=== PATIENT | female | born 1975 | race Caucasian/White ===

== ENCOUNTER 2022-01-31 10:47 | Outpatient (CLI) | payer BC, SELFPAY ==
[2022-01-31 13:45] LABS: TSH With Reflex to FT4* 0.738 uIU/mL (0.270-4.200)
== END 2022-01-31 10:48 | disposition home or self-care (01) ==
LOC: NFLDREF 10:50
PROVIDERS: Visit Provider Registered Nurse
DX: N92.0 Excessive and frequent menstruation with regular cycle (principal); Z01.419 Encounter for gynecological examination (general) (routine) without abnormal findings; E04.1 Nontoxic single thyroid nodule; Z12.31 Encounter for screening mammogram for malignant neoplasm of breast; R92.2 Inconclusive mammogram
CPT/HCPCS: 77063; 77067; 84443

== ENCOUNTER 2022-02-06 09:36 | Outpatient (CLI) | payer BC, SELFPAY ==
--- NOTE | 2022-02-06 09:45 | CRLHL7_ITS ---
For Patients: As a result of the Century Cures Act, medical imaging exams and procedure reports are released immediately into your electronic medical record. You may view this report before your referring provider. If you have questions, please contact your health care provider. INDICATION: Menorrhagia TECHNIQUE: Ultrasound pelvis transabdominal and transvaginal for better assessment or to better visualize the endometrium. Real time sonographic images with Spectral and color Doppler imaging of the ovaries were obtained. COMPARISON: 08/08/2018 FINDINGS: Uterus: 9.3 centimeter x 5.0 centimeter x 4.7 centimeter. Heterogeneous myometrium. 2.1 centimeter x 1.9 centimeter x 1.9 centimeter anterior fundal fibroid. Endometrium: Transvaginal imaging was performed to better evaluate the endometrium. Millimeter in thickness. No sign of endometrial mass or fluid. Right ovary: 2.7 centimeter x 1.5 centimeter x 1.8 centimeter. No ovarian or adnexal masses. Normal arterial and venous blood flow. Left ovary: 3.4 centimeter x 1.9 centimeter x 2.7 centimeter no ovarian or adnexal masses. 1.5 centimeter dominant follicle. Normal arterial and venous blood flow. Cul-de-sac: No significant free fluid. IMPRESSION: 2.1 centimeter anterior fundal fibroid. Heterogeneous myometrium. Normal endometrium and endometrial canal. Dictated by Gabriel Mendoza MD @ 02/07/2022 1:06:57 PM (Electronically Signed)
--- NOTE | 2022-02-06 10:45 | CRLHL7_ITS ---
For Patients: As a result of the Cures Act, medical imaging exams and procedure reports are released immediately into your electronic medical record. You may view this report before your referring provider. If you have questions, please contact your health care provider. CLINICAL HISTORY: Nodule Comparison : Ultrasound 03/29/2021 TECHNIQUE: Tamayo-scale and color Doppler images were acquired of the thyroid gland. FINDINGS: Right thyroid lobe measures 6.4 x 2 by 2.1 centimeters. Left thyroid lobe measures 6 x 1.9 x 2 centimeters. Multiple nodules present. 2.6 x 1.6 x 1.8 centimeter solid nodule TR4. Stable. 1.7 x 1.3 x 1. 6 heterogeneous solid nodule right mid thyroid lobe TR4 stable Heterogeneous solid nodule right mid thyroid lobe measuring 1 x 0.8 0.9 centimeters. TR4 this is not measured on the prior study. Solid 1.9 by 2.4 x 1.5 centimeter nodule left mid thyroid noduleTR4 stable. Solid 1.1 by 0.8 x 0.6 centimeter left mid thyroid nodule not documented prior study TR4. IMPRESSION: Multi nodular thyroid ACR TI-RADS [email or web address] TR1: Benign No FNA TR2: Not Suspicious No FNA TR3: Mildly Suspicious FNA if greater than or equal to 2.5 cm Follow if greater than or equal to 1.5 cm TR4: Moderately Suspicious FNA if greater than or equal to 1.5 cm Follow if greater than or equal to 1 cm TR5: Highly Suspicious FNA if greater than or equal to 1 cm Follow if greater than or equal to 0.5 cm Dictated by Criss Alba MD @ 02/06/2022 3:14:33 PM (Electronically Signed)
== END 2022-02-06 09:37 | disposition home or self-care (01) ==
LOC: US 09:37
PROVIDERS: Visit Provider Registered Nurse
DX: N92.0 Excessive and frequent menstruation with regular cycle (principal); E04.1 Nontoxic single thyroid nodule; N94.6 Dysmenorrhea, unspecified; D25.9 Leiomyoma of uterus, unspecified
CPT/HCPCS: 76536; 76830; 76856

== ENCOUNTER 2022-02-14 09:43 | Outpatient (CLI) | payer BC, SELFPAY ==
[2022-02-14 12:55] LABS: Free T4 Free Thyroxine* 1.24 ng/dL (0.70-1.85)
[2022-02-14 13:09] LABS: Thyroid Stimulating Hormone* 0.473 uIU/mL (0.270-4.20)
[2022-02-16 02:03] LABS: Total T3 97 ng/dL (80-200)
== END 2022-02-14 09:44 | disposition home or self-care (01) ==
PROVIDERS: Visit Provider Emergency Medicine
DX: E04.1 Nontoxic single thyroid nodule (principal)
CPT/HCPCS: 84439; 84443; 84480

== ENCOUNTER 2022-03-22 15:08 | Outpatient (CLI) | payer BC, SELFPAY ==
[2022-03-22 22:02] LABS: Chloride* 105 mmol/L (96-114)
[2022-03-22 22:03] LABS: Sodium* 140 mmol/L (135-149)
[2022-03-22 22:05] LABS: Creatinine* 0.7 mg/dL (0.5-1.5); Estimated Glomerular Filt Rate 109 ml/min
[2022-03-22 22:06] LABS: Blood Urea Nitrogen* 16 mg/dL (5-24); Calcium* 9.2 mg/dL (8.4-10.6); Carbon Dioxide* 30 mmol/L (20-32); Glucose* 112 mg/dL (60-115)
== END 2022-03-22 15:09 | disposition home or self-care (01) ==
LOC: LKVREF 15:09
PROVIDERS: Visit Provider Emergency Medicine
DX: Z01.818 Encounter for other preprocedural examination (principal)
CPT/HCPCS: 80048

== ENCOUNTER 2022-04-10 06:30 | Day surgery (SDC) | payer BC, SELFPAY ==
[2022-04-10] VITALS (16 sets, daily range): BP systolic 98–116; BP diastolic 64–74; PULSE 54–83; RESP 16; TEMP 36.1–37; O2SAT 95–98; BMI 29.7
--- NOTE | 2022-04-10 06:38 | SUR.PREOP ---
Verified pt's negative home test on her phone.
[2022-04-10 06:52] LABS: Ur HCG Qualitative* Negative (Negative)
[2022-04-10] MEDS: LACTATED RINGERS 1000 ML 1,000 ML 100 ML IV ×2 (07:00→09:11)
[2022-04-10] MEDS: SODIUM CHLORIDE 0.9 % (FLUSH) 10 ML SYRINGE IVF (07:00)
--- NOTE | 2022-04-10 08:17 | P.GYNPRC_ITS ---
Procedure Note Time Seen by Provider: 08:17 Date Seen: 04/10/22 Procedure Details: PREOPERATIVE DIAGNOSIS: 1. Menometrorrhagia. 2. Undesired fertility. POSTOPERATIVE DIAGNOSIS: 1. Menometrorrhagia. 2. Undesired fertility. NAME OF PROCEDURE: 1. Hysteroscopy. 2. D and C. 3. Maya endometrial ablation. 4. Laparoscopic bilateral salpingectomies. SURGEON: Dayron ANESTHESIA: General endotracheal COMPLICATIONS: None. ESTIMATED BLOOD LOSS: 10 mL. FINDINGS: Normal-appearing endometrium. Normal-appearing uterus, bilateral ovaries, and bilateral fallopian tubes. Bilateral small paratubal cysts, benign-appearing. PATHOLOGY SPECIMENS: 1. Endometrial curettings. 2. Bilateral fallopian tubes. PROCEDURE: After obtaining informed consent, the patient was taken to the operating room where general anesthesia was obtained without difficulty. She was prepared and draped in the normal sterile fashion, in the dorsal lithotomy position. A Sarah catheter was inserted into the bladder and left to gravity drainage. An open-sided bivalve speculum was introduced into the vagina and the cervix visualized. The anterior lip of the cervix was grasped with a single-tooth tenaculum for traction. A paracervical block was then administered using a total of 20 mL of a 50/50 mixture of 0.25% Marcaine and 1% lidocaine plain. The uterus was gently sounded. Sound length was 9.5 cm. The cervix length was determined to be 3.5 cm using Hegar dilators, yielding a uterine cavity length of 6 cm. The cervix was gently dilated to a # 6 Hegar dilator. A hysteroscope was then advanced under direct visualization through the cervix into the uterine cavity. Sterile normal saline was used as distending medium. The uterine cavity was carefully inspected with the findings noted above. The hysteroscope was then removed. The endometrial lining was then sharply curetted. The Maya device was then set to a cavity length of 6 cm, inserted through the cervical os into the uterine cavity to the level of the fundus, and deployed. The device was sealed against the cervix. The safety checks were then passed x2 and the 2-minute treatment cycle initiated. Following completion of the treatment cycle, the Maya device was removed. The hysteroscope was advanced again into the uterine cavity and the uterine cavity inspected. A good ablation was noted from the internal os to fundus and to the cornua bilaterally. Pictures were taken for documentation purposes. The hysteroscope was removed. A [employer] uterine manipulator was placed without difficulty. The tenaculum and speculum were removed. I then changed gloves and my attention was turned to the abdomen. The inferior aspect of the umbilical fold was injected with 0.25% Marcaine plain. A 5 mm vertical incision was then made within the umbilical fold using a scalpel. The subcutaneous tissues were bluntly dissected with a Yeni clamp to the fascia. A direct entry technique was used to place a 5 mm laparoscopic port with CO2 gas set to a 5 mmHg. The trocar was removed leaving the sleeve in place. The CO2 gas flow was turned to high flow to achieve pneumoperitoneum. The 5 mm laparoscope was used then to carefully inspect the abdomen and pelvis with findings noted above. Pictures were taken for documentation purposes. The patient was placed in Trendelenburg positioning. Two additional 5 mm port were placed in the right and left lower quadrant under direct visualization after first anesthetizing the skin and fascia with 0.25% Marcaine plain. The uterus was elevated using the uterine manipulator. The bowels were gently pushed from the pelvis cephalad. The left fallopian tube was elevated with a graspers. The LigaSure device was used to seal and transect the tissues connecting the fallopian tube to the left ovary, the broad ligament attachments, and finally uterine cornua. Excellent hemostasis was observed. A small paratubal cyst which was attached to the left ovary was removed with the left tube. The tube was placed into the anterior cul-de-sac for later retrieval. The right fallopian tube was then also elevated with the graspers. The LigaSure device was used to seal and transect the tissues and the tube was dissected free from its ovarian, broad ligament, and uterine attachments. Excellent hemostasis was observed. We attempted to remove the tubes directly through the 5 mm port, but they were too large to fit. The 5 mm port in the right lower quadrant was removed and the skin incision slightly extended. An 11 mm port was placed through the same incision under direct visualization. An Endo-Catch bag was inserted into the abdomen through this p ort, the fallopian tubes with attached paratubal cysts were placed within the Endo-Catch bag, and the specimens were removed through the right lower quadrant incision along with the port. A Luis-Gracia device was placed in the right lower quadrant incision and used to place is single interrupted suture of 0 Vicryl to reapproximate the fascia. Excellent hemostasis was observed. All other instruments were then removed under direct visualization. Pneumoperitoneum was allowed to escape. The skin at all 3 port sites was closed in a subcuticular fashion with 4-0 Vicryl. LiquiBand was then placed over the incisions. The uterine manipulator and Sarah catheter were removed. The patient tolerated the procedure well. Sponge, lap, and needle counts were correct x2. The patient was taken to the recovery room awake and in stable condition.
[2022-04-10] MEDS: CEFAZOLIN 2 GM INJ IVP (08:25)
[2022-04-10] MEDS: LIDOCAINE 1% MDV 20 ML INJECTION (08:45)
[2022-04-10] MEDS: BUPIVACAINE 0.25% 30 ML INJECTION (08:45)
--- NOTE | 2022-04-10 09:42 | PM.PROC ---
Procedure Note Time Seen by Provider: 09:42 Date Seen: 04/10/22 Date of procedure: 04/10/[address] [facility] bill your pro fee for this procedure?: Yes Procedure Description: speech language pathologist assistant op note: Preoperative diagnosis: 46-year-old with menorrhagia and undesired fertility. Postoperative diagnosis: Same Procedure: Hysteroscopy, dilation and curettage, laparoscopic bilateral salpingectomy Operative note: I was asked to assist Dr. Padgett with the laparoscopic portion of the patient's surgery. I aided in dissection, visualization, and obtaining hemostasis. Please see Dr. Padgett' note for complete details. Surgeon: Jing Ospina MD
--- NOTE | 2022-04-10 09:59 | W.ANESCHARGE ---
Anesthesia Charges Start Date/Time Anesthesia Start Date: 04/10/22 Anesthesia Start Time: 08:15 Stop Date/Time Anesthesia Stop Date: 04/10/22 Anesthesia Stop Time: 09:59 Summary Emergency: No
--- NOTE | 2022-04-10 10:13 | W.ANESCHARGE ---
Anesthesia Charges Start Date/Time Anesthesia Start Date: 04/10/22 Anesthesia Start Time: 08:15 Stop Date/Time Anesthesia Stop Date: 04/10/22 Anesthesia Stop Time: 09:59 Summary Emergency: No
[2022-04-10] MEDS: ACETAMINOPHEN 500 MG TABLET 1000 MG PO (12:39)
[2022-04-10] MEDS: OXYCODONE 5 MG TABLET PO (12:39)
== END 2022-04-10 13:30 | disposition home or self-care (01) ==
PROVIDERS: PCP Emergency Medicine; Visit Provider Obstetrics & Gynecology
PROC: (CPT 58661; principal; 2022-04-10 07:45)
PROC: 0UF98ZZ Fragmentation in Uterus, Via Natural or Artificial Opening Endoscopic (ICD-10-PCS; CPT 58563; 2022-04-10 07:45)
DX: N92.1 Excessive and frequent menstruation with irregular cycle (principal); Z30.2 Encounter for sterilization; N83.8 Other noninflammatory disorders of ovary, fallopian tube and broad ligament
CPT/HCPCS: 58563; 58661; 00840; 00851; 81025; 88302; 88305; A9270; J0330; J0690; J1100; J1170; J1885; J2250; J2405; J2704; J2710; J3010; J3490; J7120

== ENCOUNTER 2023-02-06 10:44 | Outpatient (CLI) | payer BC, SELFPAY | END 2023-02-06 10:45 | disposition home or self-care (01) | PROVIDERS: PCP Emergency Medicine; Visit Provider Registered Nurse | DX: Z01.419 Encounter for gynecological examination (general) (routine) without abnormal findings (principal); E04.1 Nontoxic single thyroid nodule; R53.83 Other fatigue; E01.0 Iodine-deficiency related diffuse (endemic) goiter | CPT/HCPCS: 82306; 84443 ==

== ENCOUNTER 2023-03-21 07:57 | Outpatient (CLI) | payer BC, SELFPAY ==
--- NOTE | 2023-03-21 08:15 | CRLHL7_ITS ---
For Patients: As a result of the Century Cures Act, medical imaging exams and procedure reports are released immediately into your electronic medical record. You may view this report before your referring provider. If you have questions, please contact your health care provider. BILATERAL SCREENING MAMMOGRAM WITH COMPUTER-AIDED DETECTION AND TOMOSYNTHESIS TECHNIQUE: CC and MLO views were obtained. These mammographic images have been obtained using full-field digital technique. These mammographic images were interpreted with the benefit of computer-aided detection. Breast Tomosynthesis was used in this interpretation. COMPARISON FILM: 01/31/22, 01/30/21, 10/30/19. FINDINGS: The breasts are heterogeneously dense, which may obscure small masses IMPRESSION: There is no radiographic evidence for malignancy. ASSESSMENT: BI-RADS Category 1: Negative RECOMMENDATION: Routine screening mammogram in 1 year. A lay language report of this examination will be provided to the patient. Gabriel Pires M.D. Diagnostic Radiologist [email or web address] ANKUR/Dictated by: Gabriel Pires MD @ 03/21/2023 11:16:00 AM (Electronically Signed)
--- NOTE | 2023-03-21 08:45 | CRLHL7_ITS ---
For Patients: As a result of the Century Cures Act, medical imaging exams and procedure reports are released immediately into your electronic medical record. You may view this report before your referring provider. If you have questions, please contact your health care provider. INDICATION: FOLLOW UP THYROID NODULES COMPARISON: 02/06/2022 TECHNIQUE: Tamayo scale and color Doppler images were acquired of the thyroid gland. FINDINGS: The thyroid gland demonstrates heterogeneous echogenicity and has a lobular outer contour. The right lobe measures 8.2 x 2.0 x 2.8 cm and the left lobe measures 8.3 x 2.1 x 2.6 cm in size. The isthmus measures 6 millimeters. Solid and cystic nodule within the right thyroid lobe measures 2.7 x 1.6 x 2.1 cm, previously measuring 2.6 x 1.6 x 1.8 cm. Upper pole solid and cystic nodule right thyroid lobe measures 2.0 x 1.2 x 2.0 cm, previously measuring 1.7 x 1.3 x 1.6 cm. Solid and cystic nodule upper pole right thyroid lobe is present measuring 1.6 x 1.0 x 1.4 cm, previously measuring 1.0 x 0.8 x 0.9 cm. Solid and cystic nodule left thyroid lobe measures 2.5 x 1.7 x 2.3 cm, previously measuring 2.4 x 1.5 x 1.9 cm. Inferior pole left thyroid lobe solid and cystic nodule measures 9 x 7 x 12 millimeters, previously measuring 11 x 6 x 8 millimeters. Additional solid and cystic nodule left thyroid lobe measures 1.7 x 1.2 x 1.5 cm. The color Doppler images demonstrate normal vascularity. There is no evidence of cervical lymphadenopathy or parathyroid mass. IMPRESSION: Enlarged thyroid/multinodular goiter with multiple bilateral solid and cystic nodules measuring up to 2.7 cm on the right and 2.5 cm on the left. Dictated by Gabriel Pires MD @ 03/21/2023 10:05:04 AM (Electronically Signed)
== END 2023-03-21 07:58 | disposition home or self-care (01) ==
LOC: MAMMO 07:57
PROVIDERS: PCP Emergency Medicine; Visit Provider Registered Nurse
DX: Z12.31 Encounter for screening mammogram for malignant neoplasm of breast (principal); R92.2 Inconclusive mammogram; E04.1 Nontoxic single thyroid nodule; E01.0 Iodine-deficiency related diffuse (endemic) goiter
CPT/HCPCS: 76536; 77063; 77067

== ENCOUNTER 2023-04-03 10:43 | Outpatient (CLI) | payer BC, SELFPAY | END 2023-04-03 10:44 | disposition home or self-care (01) | PROVIDERS: PCP Emergency Medicine; Visit Provider Emergency Medicine | DX: E04.1 Nontoxic single thyroid nodule (principal); R53.83 Other fatigue | CPT/HCPCS: 82607; 82728; 84439; 84443; 84445; 84480; 86376 ==

== ENCOUNTER 2023-05-30 07:40 | Outpatient (CLI) | payer BC, SELFPAY ==
--- NOTE | 2023-05-30 08:00 | CRLHL7_ITS ---
For Patients: As a result of the Century Cures Act, medical imaging exams and procedure reports are released immediately into your electronic medical record. You may view this report before your referring provider. If you have questions, please contact your health care provider. INDICATION: THYROID GOITER- EVALUATE THYROID SIZE FOR ANY TRACHEAL COMPRESSION COMPARISON: Ultrasound 03/21/2023 TECHNIQUE: CT ST Neck W/ 83CC ISOVUE 370 Please note that all CT scans at this facility use dose modulation, iterative reconstruction, and/or weight-based dosing when appropriate to reduce radiation dose to as low as reasonably achievable. FINDINGS: The CT images demonstrate normal aeration of the mastoid air cells and middle ear cavities. The paranasal sinuses are clear. The nasopharynx appears normal. The parotid and submandibular glands are of normal size and have uniform enhancement. The oropharynx appears normal. The valleculae, epiglottis, aryepiglottic folds and piriform sinuses appear normal. There is a normal appearance of the larynx and subglottic trachea. The thyroid is diffusely enlarged with multiple nodules. No compression of the trachea. No substernal component of the thyroid gland. There is no evidence of lymphadenopathy within the anterior and posterior cervical triangles or within the supraclavicular region. Lung apices are clear. Osseous structures normal. IMPRESSION: Multinodular goiter without tracheal compression or adenopathy. Please note that all CT scans at this facility use dose modulation, iterative reconstruction, and/or weight-based dosing when appropriate to reduce radiation dose to as low as reasonably achievable. Dictated by Gabriel Pires MD @ 05/30/2023 10:20:59 AM (Electronically Signed)
== END 2023-05-30 07:41 | disposition home or self-care (01) ==
LOC: CT 07:40
PROVIDERS: PCP Emergency Medicine; Visit Provider Surgery
DX: E04.1 Nontoxic single thyroid nodule (principal); E04.2 Nontoxic multinodular goiter; J02.9 Acute pharyngitis, unspecified; R07.0 Pain in throat; R53.83 Other fatigue
CPT/HCPCS: 70491; Q9967

== ENCOUNTER 2023-06-07 08:52 | Outpatient (CLI) | payer BC, SELFPAY ==
--- NOTE | 2023-06-07 09:15 | CRLHL7_ITS ---
For Patients: As a result of the Century Cures Act, medical imaging exams and procedure reports are released immediately into your electronic medical record. You may view this report before your referring provider. If you have questions, please contact your health care provider. INDICATION : MULTINODULAR THYROID GLAND TECHNIQUE : Ultrasound-guided fine needle aspiration of thyroid nodule. Comparison : Ultrasound 03/21/2023 FINDINGS : PROCEDURE: After the informed consent and time-out, multiple fine needle aspirations were obtained from the thyroid nodule. Fine needle performed. 25 gauge needles were used. Lidocaine was used for local anesthesia. The preliminary cytology was adequate for interpretation. Real-time imaging was used for guidance and needle placement. Post imaging ultrasound demonstrates no immediate complication. IMPRESSION : Successful fine needle aspiration of 2.7 centimeter right thyroid lobe nodule. Dictated by Gabriel Pires MD @ 06/07/2023 11:46:18 AM (Electronically Signed)
== END 2023-06-07 08:53 | disposition home or self-care (01) ==
LOC: US 08:52
PROVIDERS: PCP Emergency Medicine; Visit Provider Surgery
DX: E04.1 Nontoxic single thyroid nodule (principal)
CPT/HCPCS: 10005; 88173

== ENCOUNTER 2023-07-16 19:26 | Outpatient (CLI) | payer BC, SELFPAY ==
--- NOTE | 2023-07-31 09:11 | W.PM.SLEEP ---
Sleep Study Details Details Interpreting Provider: Her Date of Sleep Study: 07/16/23 Sleep Study Details: STUDY TYPE: Home unattended ? BMI:? Not recorded ORDERING PROVIDER:? Reji INDICATION:? Daytime hypersomnolence ? SLEEP SUMMARY:? 497.6 minutes monitored RESPIRATORY SUMMARY:? 0.7 Low oxygen 91 Snoring 13.8% PERIODIC LIMB MOVEMENTS OF SLEEP:? Not recorded during home study CARDIAC:? Range 64-111, mean 78.4 IMPRESSION:? Primary snoring This study does not demonstrate clinically significant obstructive sleep apnea RECOMMENDATION: If sleep disorder is strongly suspected with would recommend an in-lab study with a sedative hypnotic agent.
== END 2023-07-16 19:27 | disposition home or self-care (01) ==
LOC: SLEEP 19:26
PROVIDERS: PCP Emergency Medicine; Visit Provider Otolaryngology
DX: G47.19 Other hypersomnia (principal)
CPT/HCPCS: 95806

== ENCOUNTER 2023-07-30 14:48 | Outpatient (CLI) | payer BC, SELFPAY | END 2023-07-30 14:49 | disposition home or self-care (01) | PROVIDERS: PCP Emergency Medicine; Visit Provider Otolaryngology | DX: R53.83 Other fatigue (principal); E04.1 Nontoxic single thyroid nodule; G25.81 Restless legs syndrome; G47.00 Insomnia, unspecified | CPT/HCPCS: 82306; 82607; 82728 ==

== ENCOUNTER 2023-08-13 20:15 | Outpatient (CLI) | payer BC, SELFPAY ==
--- NOTE | 2023-08-28 12:56 | W.PM.SLEEP ---
Sleep Study Details Details Interpreting Provider: Reji Date of Sleep Study: 08/13/23 Sleep Study Details: STUDY TYPE:? Hospital-based attended ? BMI:? 29.9 ORDERING PROVIDER:? Reji INDICATION:? Excessive daytime sleepiness ? SLEEP SUMMARY:? 350 minutes total sleep time 5.6% stage REM sleep RESPIRATORY SUMMARY:? Mean oxygen awake 95 asleep 95 minimum 92 AHI 1.4 PERIODIC LIMB MOVEMENTS OF SLEEP:? None were noted CARDIAC:? Awake 76 asleep 73, no arrhythmias noted IMPRESSION:? This is an essentially negative polysomnogram other than a diminished amount of stage REM sleep. This does not explain patient's high [place] score. Would recommend the and referral to a tertiary sleep center and/or repeat PSG with MSLT to follow. RECOMMENDATION: See impression
== END 2023-08-13 20:16 | disposition home or self-care (01) ==
LOC: SLEEP 20:17
PROVIDERS: PCP Emergency Medicine; Visit Provider Otolaryngology
DX: G47.30 Sleep apnea, unspecified (principal); G47.10 Hypersomnia, unspecified; R06.83 Snoring
CPT/HCPCS: 95810

== ENCOUNTER 2023-11-26 14:52 | Outpatient (CLI) | payer BC, SELFPAY ==
--- OUTSIDE RECORDS SUMMARY | 2023-11-27 10:32 | XMS_ITS | Encounter Summary ---
Author Organization [facility] Address [address] [place] [address]. [place] [address] Care Team Providers Care Manager Pharmacy Name Role Phone Mari Chau PA-C Primary Care Pr ovider Mari Chau PA-C Unavailable Mari Chau PA-C Unavailable Reason for Visit * Reason Onset Date Comments Outreach 01/09/2017 phs att 1 Encounter Details Date Type Department Care Team (Late st Contact Info) Description 01/09/2017 Telephone [facility] [address] [place] [address] Mari Chau PA-C [address] [place] [address] Outreach (phs att 1) Social History Tobacco Use Types Packs/Day Years Used Date Smoking Tobacco: Former Cigarettes 0.5 3 1 - 05/04/2006 Smokeless Tobacco: Never Comments:1/2 pp week Alcohol Use Standard Drinks/Week Comments No 0 (1 standard drink = 0.6 oz pur e alcohol) rare Sex and Gender Information Value Date Recorded Sex Assigned at Female 09/12/2020 11:48 AM CDT Gender Identity Female 09/12/2020 11:48 AM CDT Sexual Orientation Straight 09/12/2020 11 :48 AM CDT documented as of this encounter Miscellaneous Notes * Telephone Encounter - Jazmine Dumont - 01/09/2017 5:11 PM CDT 01/09/2017 Call Regarding Preventive Health Screening Cervical/PAP and Physical Attempt 1 Message on voicemail Comments: Outreach Director Of Field Coordination AT documented in this encounter Plan of Treatment Not on file documented as of this encounter Visit Diagnoses Not on filedocumented in this encounter Care Teams Manager Pharmacy Relationship Specialty Start Date End Date Mari Chau PA-C [address] [place] [address] PCP - General Family Practice 10/31/10 Mari Chau PA-C [address] [place] [address] PCP - Assigned PCP 11/05/10 07/08/18 Mari Chau PA-C [address] [place] [address] Assigned PCP 02/07/12 02/14/19 documented as of this encounter
--- OUTSIDE RECORDS SUMMARY | 2023-11-27 10:32 | XMS_ITS | Referral Summary ---
Author Organization [facility] Address [address] [place] [address]. [place] [address] Care Team Providers Care Heavy Mobile Equipment Repairer Name Role Phone Adolfo Chau PA-C Primary Care Pr ovider Allergies Active Allergy Reactions Criticality Noted Date Comments Erythromycin 08/31/2002 Seasonal Allergies 11/16/2013 Medications Medication Sig Dispensed Refills Start Date End Date Status CRANBERRY daily Active UNABLE TO FIND MEDICATION NAME: biocell collagen Active UNABLE TO FIND MEDICATION NAME: fluconauzole Active UNABLE TO FIND MEDICATION NAME: clobetasol ointment Active clotrimazole-betame thasone (LOTRISONE) creamIndications:Ac greg vaginitis Apply topically 2 times daily 15 g 1 02/09/2016 Active fluconazole (DIFLUCAN) 150 MG tabletIndications:A cute vaginitis Take 1 tablet (150 mg) by mouth every 3 days 4 tablet 0 02/09/2016 Active Active Problems Problem Noted Date Diagnosed Date 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 Provider to review and confirm. Supervision of normal first 05/08/2004 07/26/2005 Immunizations Name Administration Dates Next Due Influenza (IIV3) PF 02/03/2009 TDAP (Adacel,Boostrix) 12/04/2006 Tetanus 12/04/2006 Social History Tobacco Use Types Packs/Day Years Used Date Smoking Tobacco: Former Cigarettes 0.5 3 1 - 05/04/2006 Smokeless Tobacco: Never Comments:1/2 pp week Alcohol Use Standard Drinks/Week Comments No 0 (1 standard drink = 0.6 oz pur e alcohol) rare Adolescent Education Answer Date Record ed Getting School Help Needed Not on file 02/10 Sex and Gender Information Value Date Recorded Sex Assigned at Female 09/12/2020 11:48 AM CDT Gender Identity Female 09/12/2020 11:48 AM CDT Sexual Orientation Straight 09/12/2020 11 :48 AM CDT Last Filed Vital Signs Vital Sign Reading Time Taken Comments Blood Pressure 110/70 02/09/2016 2:24 PM CDT Pulse 78 02/09/2016 2:24 PM CDT Temperature 36.9 ??C (98.5 ??F) 02/09/2016 2:24 PM CD T Respiratory Rate 16 04/08/2013 10:19 AM SPRAGGER Oxygen Saturation 98% 02/09/2016 2:24 PM CDT Inhaled Oxygen Concentration - - Weight 76.7 kg (169 lb 1.6 oz) 02/09/2016 2:24 P M CDT Height 162.6 cm (5' 4) 02/09/2016 2:24 PM CDT Body Mass Index 29.03 02/09/2016 2:24 PM CDT Plan of Treatment Not on file Procedures Procedure Name Priority Date/Time Associated Diagnosis Comments COMPREHENSIVE METABOLIC PANEL Routine 11/16/2013 8:35 AM CDT Screening For Diabetes Mellitus LIPID REFLEX TO DIRECT LDL PANEL Routine 11/16/2013 8:35 AM CDT Lipid screening PAP IMAGED THIN LAYER SCREEN Routine 08/02/2011 9:26 AM CDT Screening for malignant neoplasm of the cervix HCL HIV 1 & 2 ANTIBODY Routine 9 9:03 AM SPRAGGER Supervision of Other Normal from Last 3 Months or Most Recently Relevant to Health Maintenance Results * (ABNORMAL) Lipid panel reflex to direct LDL (11/16/2013 8:35 AM CDT) Cholesterol 145 <200 mg/dL [facility] Comment: LDL Cholesterol is the primary guide to therapy. The NCEP recommends further evaluation of: patients with cholesterol greater than 200 mg/dL if additional risk factors are present, cholesterol greater than 240 mg/dL, triglycerides greater than 150 mg/dL, or HDL less than 40 mg/dL. Triglycerides 60 0 - 150 mg/dL [facility] HDL Cholesterol 48(L) >50 mg/dL [facility] LDL Cholesterol Calculated 85 0 - 129 mg/dL [facility] Comment: LDL Cholesterol is the primary guide to therapy: LDL-cholesterol goal in high risk patients is <100 mg/dL and in very high risk patients is <70 mg/dL. VLDL-Cholesterol 12 0 - 30 mg/dL [facility] Cholesterol/HDL Ratio 3.0 0.0 - 5.0 [facility] Blood specimen (specimen) 11/16/2013 8:35 AM CDT 11/16/2013 8:40 AM CDT Adolfo Chau PA-C LAB - BL OOD ORDERABLES [facility] [address] [place] [address] * Comprehensive metabolic panel (11/16/2013 8:35 AM CDT) Pathologist [facility] Sodium 141 133 - 144 mmol/L [facility] Potassium 4.0 3.4 - 5.3 mmol/L [facility] Chloride 103 94 - 109 mmol/L [facility] Carbon Dioxide 26 20 - 32 mmol/L [facility] Anion Gap 11 6 - 17 mmol/L [facility] Glucose 84 60 - 99 mg/dL [facility] Urea Nitrogen 15 5 - 24 mg/dL [facility] Creatinine 0.79 0.52 - 1.04 mg/dL [facility] GFR Estimate 82 >60 mL/min/1.7 m2 [facility] GFR Estimate If Black >90 >60 mL/min/1.7 m2 [facility] Calcium 9.0 8.5 - 10.4 mg/dL [facility] Bilirubin Total 0.7 0.2 - 1.3 mg/dL [facility] Albumin 4.2 3.9 - 5.1 g/dL [facility] Protein Total 7.1 6.8 - 8.8 g/dL [facility] Alkaline Phosphatase 40 40 - 150 U/L [facility] ALT 25 0 - 50 U/L [facility] AST 23 0 - 45 U/L [facility] Blood specimen (specimen) 11/16/2013 8:35 AM CDT 11/16/2013 8:40 AM CDT Adolfo Chau PA-C LAB - BL OOD ORDERABLES [facility] [address] [place] [address] * PAP IMAGED THIN LAYER SCREEN (08/02/2011 9:26 AM CDT) PAP TANYA Rogers Report Patient Name: BELLA COFFEY MR#: [id number] Specimen #: [id number] Collected: 08/02/2011 Received: 08/02/2011 Reported: 08/03/2011 14:07 Ordering Phy(s): ADOLFO CHAU SPECIMEN/STAIN PROCESS: Pap imaged thin layer prep screening (Surepath, FocalPoint with guided screening) ? Pap-Cyto x 1, Reflex HPV x 1 SOURCE: Cervical, endocervical Pap imaged thin layer prep screening (Surepath, FocalPoint with guided screening) SPECIMEN ADEQUACY: Satisfactory for evaluation. -Transformation zone component present. -scant cellularity. CYTOLOGIC INTERPRETATION: Negative for Intraepithelial Lesion or Malignancy Electronically signed out by: MAXIMILIAN Moise (ASCP) Processed and screened at [facility], [facility] CLINICAL HISTORY: Previous normal pap Date of Last Pap: 12/15/09, Papanicolaou Test Limitations: ??Cervical cytology is a screening test with limited sensitivity; regular screening is critical for cancer prevention; Pap tests are primarily effective for the diagnosis/preventi on of squamous cell carcinoma, not adenocarcinomas or other cancers. TESTING LAB LOCATION: [facility] [address] [address] [place], [place] ??[phone] COLLECTION SITE: Client: ??[facility] Location: [facility] (R) COPATH Cytologic material (specimen) 08/02/2011 9:26 AM CDT 08/02/2011 2:05 PM CDT Adolfo Chau PA-C LAB - OP TIME CLINICAL SPECIMEN COP[facility] * HIV 1 & 2, SCREEN (05/03/2009 9:03 AM SPRAGGER) HIV 1&2 Antibody Negative NEG [facility] 05/03/2009 9:03 AM SPRAGGER 05/03/2009 9:08 AM SPRAGGER Earl Issa MD LABORATORY [facility] from Last 3 Months or Most Recently Relevant to Health Maintenance Care Teams Heavy Mobile Equipment Repairer Relationship Specialty Start Date End Date Adolfo Chau PA-C [address] [place], [place] [id number] PCP - General Family Practice 10/31/10
--- OUTSIDE RECORDS SUMMARY | 2023-11-27 10:32 | XMS_ITS | Encounter Summary ---
Author Organization [facility] Address [address] [place] [address]. [place] [address] Care Team Providers Care Car Rental Service Attendant Name Role Phone Mari Chau PA-C Primary Care Pr ovider Mari Chau PA-C Unavailable Mari Chau PA-C Unavailable Encounter Details Date Type Department Care Team (Late st Contact Info) Description 05/21/2016 MyC Medical Advice [address] [phone] Jess Wild, PICK PULLING MACHINE OPERATOR Social History Tobacco Use Types Packs/Day Years [...] AM CDT documented as of this encounter Plan of Treatment Not on file documented as of this encounter Visit Diagnoses Not on filedocumented in this encounter Care Teams Car Rental Service Attendant Relationship Specialty Start Date End Date Mari Chau PA-C [address] [place] [address] PCP - General Family Practice 10/31/10 Mari Chau PA-C [address] [place] [address] PCP - Assigned PCP 11/05/10 07/08/18 Mari Cahu PA-C [address] [place] [address] Assigned PCP 02/07/12 02/14/19 documented as of this encounter
--- OUTSIDE RECORDS SUMMARY | 2023-11-27 10:32 | XMS_ITS | Encounter Summary ---
Author Organization [facility] Address [address] [place] [address]. [place] [address] Care Team Providers Care Robotics Specialist Name Role Phone Mari Chau PA-C Primary Care Pr ovider Mari Chau PA-C Unavailable Mari Chau PA-C Unavailable Encounter Details Date Type Department Care Team (Late st Contact Info) Description 06/24/2014 MyC Medical Advice [address] [phone] Tamiko Llamas, DO [address] [facility] [address] [place] [address] Fatigue (Primary Dx) Social History Tobacco Use Types Packs/Day Years Used Date Smoking Tobacco: Former Cigarettes 0.5 3 1 - 05/04/2006 Smokeless Tobacco: Never Comments:1/2 pp week Alcohol Use Standard Drinks/Week Comments Yes 0 (1 standard drink = 0.6 oz pur e alcohol) rare Sex and Gender Information Value Date Recorded Sex Assigned at Female 09/12/2020 11:48 AM CDT Gender Identity Female 09/12/2020 11:48 AM CDT Sexual Orientation Straight 09/12/2020 11 :48 AM CDT documented as of this encounter Plan of Treatment Not on file documented as of this encounter Visit Diagnoses Diagnosis Fatigue- Primary Other malaise and fatigue documented in this encounter Care Teams Robotics Specialist Relationship Specialty Start Date End Date Mari Chau PA-C [address] [place] [address] PCP - General Family Practice 10/31/10 Mari Chau PA-C [address] [place] [address] PCP - Assigned PCP 11/05/10 07/08/18 Mari Chau PA-C [address] [place] [address] Assigned PCP 02/07/12 02/14/19 documented as of this encounter
--- OUTSIDE RECORDS SUMMARY | 2023-11-27 10:32 | XMS_ITS | Clinical Summary ---
Author Organization [facility] Address [address] [place] [address]. [place] [address] Care Team Providers Care School Bus Driver/Teacher Assistant Name Role Phone Adolfo Chau PA-C Primary [...] PF 02/03/2009 TDAP (Adacel,Boostrix) 12/04/2006 Tetanus 12/04/2006 Family History Medical History Relation Comments Allergies Brother Family History Negative Father Hyperlipidemia Father Cancer Maternal Grandfather Eye Disorder Maternal Grandfather glacouma Heart Disease Maternal Grandfather Hypertension Maternal Grandfather Other Cancer Maternal Grandfather Gynecology Maternal Grandmother ovarian thais yps Allergies Mother Family History Negative Mother Hyperlipidemia Mother Alzheimer Disease Paternal Grandfather Heart Disease Paternal Grandfather Lipids Paternal Grandfather Lipids Paternal Grandmother Family History Negative Sister 1 Family History Negative Sister 2 Breast Cancer No family hx of Cancer - colorectal No family hx of Diabetes No family hx of Relation Status Comments Brother Father Alive Maternal Grandfather Alive Maternal Grandmother Alive Mother Alive Paternal Grandfather Paternal Grandmother Alive Sister 1 Sister 2 Social History Tobacco Use Types Packs/Day Years [...] T Respiratory Rate 16 04/08/2013 10:19 AM GRAIN BROKER AND MARKET OPERATOR Oxygen Saturation 98% 02/09/2016 2:24 PM CDT Inhaled Oxygen Concentration - - Weight 76.7 kg (169 lb 1.6 oz) 02/09/2016 2:24 P M CDT Height 162.6 cm (5' 4) 02/09/2016 2:24 PM CDT Body Mass Index 29.03 02/09/2016 2:24 PM CDT Plan of Treatment Health Maintenance Due Date Last Done Comments ADVANCE CARE PLANNING 1977 ANNUAL REVIEW OF HM ORDERS [address] CT COLONOGRAPHY 1977 FIT 1977 FLEX SIG 1977 MAMMO SCREENING 1977 sDNA (Cologuard) 1977 COLONOSCOPY 08/26/1987 COLORECTAL CANCER SCREENING 08/26/1987 HEPATITIS C SCREENING 08/26/1995 HEPATITIS B IMMUNIZATION (1 of 3 - 19+ 3-dose series) 1996 PAP 08/01/2014 08/02/2011, 12/04, 11/17/2008, Additional history exists YEARLY PREVENTIVE VISIT 11/16/2014 11/17/19 14, 08/19/2012, 08/02/2011, Additional history exists GLUCOSE 11/16/2016 11/16/2013, 08/04, 08/02/2011, Additional history exists LIPID 11/16/2018 11/16/2013, 08/04, 08/02/2011, Additional history exists COVID-19 Vaccine ( season) 2023 06/06/2021, 09/16/2020, 08/26/2020 PHQ-2 (once per calendar year) 2023 DTAP/TDAP/TD IMMUNIZATION (5 - Td or Tdap) 06/17/2028 06/17/2018, 12/28/2006, 12/04/2006, Additional history exists INFLUENZA VACCINE Discontinued 02/03/2009 HIV SCREENING Completed 05/03/2009, 03/14/2004 HPV IMMUNIZATION Aged Out No longer e ligible based on patient's age to complete this topic IPV IMMUNIZATION Aged Out No longer e ligible based on patient's age to complete this topic MENINGITIS IMMUNIZATION Aged Out No l onger eligible based on patient's age to complete this topic Pneumococcal Vaccine: Pediatrics (0 to 5 Years) and At-Risk Patients (6 to 64 Years) Aged Out No longer eligible based on patient's age to complete this topic RSV MONOCLONAL ANTIBODY Aged Out No l onger eligible based on patient's age to complete this topic Procedures Procedure Name Priority Date/Time Associated Diagnosis Comments COMPREHENSIVE METABOLIC PANEL Routine 11/16/2013 8:35 AM CDT Screening For Diabetes Mellitus LIPID REFLEX TO DIRECT LDL PANEL Routine 11/16/2013 8:35 AM CDT Lipid screening PAP IMAGED THIN LAYER SCREEN Routine 08/02/2011 9:26 AM CDT Screening for malignant neoplasm of the cervix HCL HIV 1 & 2 ANTIBODY Routine 9:03 AM GRAIN BROKER AND MARKET OPERATOR Supervision of Other Normal from Last 3 Months or Most Recently Relevant to Health Maintenance Results * (ABNORMAL) Lipid panel reflex to direct LDL (11/16/2013 8:35 AM CDT) Cholesterol 145 <200 mg/dL [facility] Comment: LDL Cholesterol is the primary guide to therapy. The NCEP recommends further evaluation of: patients with cholesterol greater than 200 mg/dL if additional risk factors are present, cholesterol greater than 240 mg/dL, triglycerides greater than 150 mg/dL, or HDL less than 40 mg/dL. Triglycerides 60 0 - 150 mg/dL [facility] HDL Cholesterol 48(L) >50 mg/dL [facility] LDL Cholesterol Calculated 85 0 - 129 mg/dL [facility] Comment: LDL Cholesterol is the primary guide to therapy: LDL-cholesterol goal in high risk patients is <100 mg/dL and in very high risk patients is <70 mg/dL. VLDL-Cholesterol 12 0 - 30 mg/dL [facility] Cholesterol/HDL Ratio 3.0 0.0 - 5.0 [facility] Blood specimen (specimen) 11/16/2013 8:35 AM CDT 11/16/2013 8:40 AM CDT Adolfo Chau PA-C LAB - BL OOD ORDERABLES [facility] [address] [place] [address] * Comprehensive metabolic panel (11/16/2013 8:35 AM CDT) Sodium 141 133 - 144 mmol/L [facility] Potassium 4.0 3.4 - 5.3 mmol/L [facility] Chloride 103 94 - 109 mmol/L [facility] Carbon Dioxide 26 20 - 32 mmol/L [facility] Anion Gap 11 6 - 17 mmol/L [facility] Glucose 84 60 - 99 mg/dL [facility] Urea Nitrogen 15 5 - 24 mg/dL [facility] Creatinine 0.79 0.52 - 1.04 mg/dL [facility] GFR Estimate 82 >60 mL/min/1.7 m2 [facility] GFR Estimate If Black >90 >60 mL/min/1.7 m2 [facility] Calcium 9.0 8.5 - 10.4 mg/dL [facility] Bilirubin Total 0.7 0.2 - 1.3 mg/dL [facility] Albumin 4.2 3.9 - 5.1 g/dL [facility] Protein Total 7.1 6.8 - 8.8 g/dL [facility] Alkaline Phosphatase 40 40 - 150 U/L [facility] ALT 25 0 - 50 U/L [facility] AST 23 0 - 45 U/L [facility] Blood specimen (specimen) 11/16/2013 8:35 AM CDT 11/16/2013 8:40 AM CDT Adolfo Chau PA-C LAB - BL OOD ORDERABLES [facility] [address] [place] [address] * PAP IMAGED THIN LAYER SCREEN (08/02/2011 9:26 AM CDT) PAP NIL EDITH Rogers Report Patient Name: BELLA COFFEY MR#: [id number] Specimen #: [id number] Collected: 08/02/2011 Received: 08/02/2011 Reported: 08/03/2011 14:07 [...] MAXIMILIAN Moise (ASCP) Processed and screened at [facility] CLINICAL HISTORY: Previous normal pap Date of Last Pap: 12/15/09, Papanicolaou Test Limitations: ??Cervical cytology is a screening test with limited sensitivity; regular screening is critical for cancer prevention; Pap tests are primarily effective for the diagnosis/preventi on of squamous cell carcinoma, not adenocarcinomas or other cancers. TESTING LAB LOCATION: [address] ??[phone] COLLECTION SITE: Client: ??[facility] Location: [facility]FP (R) COPATH Cytologic material (specimen) 08/02/2011 9:26 AM CDT 08/02/2011 2:05 PM CDT Adolfo Chau PA-C LAB - OP TIME CLINICAL SPECIMEN [facility] * HIV 1 & 2, SCREEN (05/03/2009 9:03 AM GRAIN BROKER AND MARKET OPERATOR) HIV 1&2 Antibody Negative NEG [facility] 05/03/2009 9:03 AM GRAIN BROKER AND MARKET OPERATOR 05/03/2009 9:08 AM GRAIN BROKER AND MARKET OPERATOR Earl Issa MD LABORATORY [facility] LAB[facility] from Last 3 Months or Most Recently Relevant to Health Maintenance Care Teams School Bus Driver/Teacher Assistant Relationship Specialty Start Date End Date Adolfo Chau PA-C [address] [place] [address] PCP - General Family Practice 10/31/10
--- OUTSIDE RECORDS SUMMARY | 2023-11-27 10:32 | XMS_ITS | Encounter Summary ---
Author Organization [facility] Address [address] [place] [address]. [place] [address] Care Team Providers Care Hadoop Software Engineer Name Role Phone Mari Chau PA-C Primary Care Pr ovider Mari Chau PA-C Unavailable Mari Chau PA-C Unavailable Encounter Details Date Type Department Care Team (Late st Contact Info) Description 10/26/2016 MyC Medical Advice [address] [phone] Jess Wild, HEALTH SAFETY INSTRUCTOR Social History Tobacco Use Types Packs/Day Years [...] on filedocumented in this encounter Care Teams Hadoop Software Engineer Relationship Specialty Start Date End Date Mari Chau PA-C [address] [place] [address] PCP - General Family Practice 10/31/10 Mari Chau PA-C [address] [place] [address] PCP - Assigned PCP 11/05/10 07/08/18 Mari Chau PA-C [address] [place] [address] Assigned PCP 02/07/12 02/14/19 documented as of this encounter
--- OUTSIDE RECORDS SUMMARY | 2023-11-27 10:32 | XMS_ITS | Encounter Summary ---
Author Organization [facility] Address [address] [place] [address]. [place] [address] Care Team Providers Care Health Services Administrator Name Role Phone Mari Chau PA-C Primary Care Pr ovider Mari Chau PA-C Unavailable Mari Chau PA-C Unavailable Reason for Visit * Reason Onset Date Comments MyChart Communication 02/13/2016 Encounter Details Date Type Department Care Team (Latest Contact Info) Description 02/13/2016 [facility] Medical Advice [facility] [address] [place] [phone] Mari Chau PA-C [address] [place] [address] MyChart Communication Social History Tobacco Use Types Packs/Day Years [...] encounter Miscellaneous Notes * Telephone Encounter - Maty Mojica RN - 02/13/2016 10:34 AM CDT Please advise on vitamin D Maty Mojica RN, BSN documented in this encounter Plan of Treatment Not on file documented as of this encounter Visit Diagnoses Not on filedocumented in this encounter Care Teams Health Services Administrator Relationship Specialty Start Date End Date Mari Chau PA-C [address] [place] [address] PCP - General Family Practice 10/31/10 Mari Chau PA-C [address] [place] [address] PCP - Assigned PCP 11/05/10 07/08/18 Mari Chau PA-C [address] [place] [address] Assigned PCP 02/07/12 02/14/19 documented as of this encounter
--- OUTSIDE RECORDS SUMMARY | 2023-11-27 10:32 | XMS_ITS | Encounter Summary ---
Author Organization [facility] Address [address] [place] [address]. [place] [address] Care Team Providers Care Air Cargo Ground Operations Supervisor Name Role Phone Mari Chau PA-C Primary Care Pr ovider Mari Chau PA-C Unavailable Mari Chau PA-C Unavailable Reason for Visit * Reason Onset Date Comments MyChart Communication 02/15/2016 Encounter Details Date Type Department Care Team (Latest Contact Info) Description 02/15/2016 [facility] Medical Advice [facility] [id number] [place] [phone] Mari Chau PA-C [id number] [place] [address] MyChart Communication Social History Tobacco Use [...] Telephone Encounter - Maty Mojica RN - 02/15/2016 9:46 AM CDT Please advise on thyroid level Maty Mojica RN, BSN documented in this encounter Plan of Treatment Not on file documented as of this encounter Visit Diagnoses Not on filedocumented in this encounter Care Teams Air Cargo Ground Operations Supervisor Relationship Specialty Start Date End Date aMri Chau PA-C [address] [place] [address] PCP - General Family Practice 10/31/10 Mari Chau PA-C [address] [place] [address] PCP - Assigned PCP 11/05/10 07/08/18 Mari Chau PA-C [address] [place] [address] Assigned PCP 02/07/12 02/14/19 documented as of this encounter
--- OUTSIDE RECORDS SUMMARY | 2023-11-27 10:32 | XMS_ITS | Encounter Summary ---
Author Organization [facility] Address [address] [place] [address]. [place] [address] Care Team Providers Care Automobile Accessories Installer Name Role Phone Mari Chau PA-C Primary Care Pr ovider Mari Chau PA-C Unavailable Mari Chau PA-C Unavailable Encounter Details Date Type Department Care Team (Late st Contact Info) Description 03/04/2015 MyC Medical Advice [address] [phone] Jess Wild, CONTACT LENS CUTTER Social History Tobacco Use Types Packs/Day Years [...] on filedocumented in this encounter Care Teams Automobile Accessories Installer Relationship Specialty Start Date End Date Mari Chau PA-C [address] [place] [address] PCP - General Family Practice 10/31/10 Mari Chau PA-C [address] [place] [address] PCP - Assigned PCP 11/05/10 07/08/18 Mari Chau PA-C [address] [place] [address] Assigned PCP 02/07/12 02/14/19 documented as of this encounter
--- OUTSIDE RECORDS SUMMARY | 2023-11-27 10:32 | XMS_ITS | Encounter Summary ---
Author Organization [facility] Address [address] [place] [address]. [place] [address] Care Team Providers Care Vegetable Thinner Name Role Phone Mari Chau PA-C Primary Care Pr ovider Mari Chau PA-C Unavailable Mari Chau PA-C Unavailable Encounter Details Date Type Department Care Team (Late st Contact Info) Description 06/14/2014 My[facility] Medical Advice [address] [phone] Tamiko Llamas, DO [address] [address] [place] [address] Social History Tobacco Use Types Packs/Day Years [...] on filedocumented in this encounter Care Teams Vegetable Thinner Relationship Specialty Start Date End Date Mari Chau PA-C [address] [place] [address] PCP - General Family Practice 10/31/10 Mari Chau PA-C [address] [place] [address] PCP - Assigned PCP 11/05/10 07/08/18 Mari Chau PA-C [address] [place] [address] Assigned PCP 02/07/12 02/14/19 documented as of this encounter
--- OUTSIDE RECORDS SUMMARY | 2023-11-27 10:32 | XMS_ITS | Encounter Summary ---
Author Organization [facility] Address [address] [place] [address]. [place] [address] Care Team Providers Care Debt And Budget Counselor Name Role Phone Mari Chau PA-C Primary Care Pr ovider Mari Chau PA-C Unavailable Mari Chau PA-C Unavailable Reason for Visit * Reason Onset Date Comments MyChart Communication 02/16/2016 Encounter Details Date Type Department Care Team (Latest Contact Info) Description 02/16/2016 MyC Medical Advice [facility] [id number] [place] [phone] Mari Chau PA-C [id number] [place] [address] MyChart Communication Social History Tobacco Use [...] on filedocumented in this encounter Care Teams Debt And Budget Counselor Relationship Specialty Start Date End Date Mari Chau PA-C [address] [place] [address] PCP - General Family Practice 10/31/10 Mari Chau PA-C [address] [place] [address] PCP - Assigned PCP 11/05/10 07/08/18 Mari Chau PA-C [address] [place] [address] Assigned PCP 02/07/12 02/14/19 documented as of this encounter
--- OUTSIDE RECORDS SUMMARY | 2023-11-27 10:32 | XMS_ITS | Encounter Summary ---
Author Organization [facility] Address [address] [place] [address]. [place] [address] Care Team Providers Care Tieing Machine Operator Name Role Phone Mari Chau PA-C Primary Care Pr ovider Mari Chau PA-C Unavailable Mari Chau PA-C Unavailable Encounter Details Date Type Department Care Team (Late st Contact Info) Description 05/17/2015 MyC Medical Advice [address] [phone] Jess Wild, RESPIRATORY ASSISTANT Social History Tobacco Use Types Packs/Day Years [...] on filedocumented in this encounter Care Teams Tieing Machine Operator Relationship Specialty Start Date End Date Mari Chau PA-C [address] [place] [address] PCP - General Family Practice 10/31/10 Mari Chau PA-C [address] [place] [address] PCP - Assigned PCP 11/05/10 07/08/18 Mari Chau PA-C [address] [place] [address] Assigned PCP 02/07/12 02/14/19 documented as of this encounter
--- OUTSIDE RECORDS SUMMARY | 2023-11-27 10:33 | XMS_ITS | Encounter Summary ---
Author Organization [facility] Address [address] [place] [address]. [place] [address] Care Team Providers Care Emergency Vehicle Dispatcher Name Role Phone Steph Venegas MD Primary Care Provid er Mari Chau PA-C Primary Care Pr ovider Mari Chau PA-C Unavailable Mari Chau PA-C Unavailable Encounter Details Date Type Department Care Team (Late st Contact Info) Description 11/04/2009 [facility] [address] [place] [address] Antonio Louis MD NO INFO AVAILABLE 04/26/2022 OB DELIVERY RECORD Social History Tobacco Use Types Packs/Day Years [...] as of this encounter Visit Diagnoses Diagnosis OB DELIVERY RECORD- Primary documented in this encounter Care Teams Emergency Vehicle Dispatcher Relationship Specialty Start Date End Date Steph Venegas MD [address] [place] [address] PCP - General 03/27/04 10/30/10 Mari Chau PA-C [address] [place] [address] PCP - General Family Practice 10/31/10 Mari Chau PA-C [address] [place] [address] PCP - Assigned PCP 11/05/10 07/08/18 Mari Chau PA-C [address] [place] [address] Assigned PCP 02/07/12 02/14/19 documented as of this encounter
--- OUTSIDE RECORDS SUMMARY | 2023-11-27 10:33 | XMS_ITS | Encounter Summary ---
Author Organization [facility] Address [address] [place] [address]. [place] [address] Care Team Providers Care Sales Product Manager Name Role Phone Mari Chau PA-C Primary Care Pr ovider Mari Chau PA-C Unavailable Mari Chau PA-C Unavailable Reason for Visit * Reason Onset Date Comments MyChart Communication 12/08/2013 Encounter Details Date Type Department Care Team (Latest Contact Info) Description 12/08/2013 MyC Medical Advice [facility] [id number] [place] [phone] Mari Chau PA-C [id number] [place] [address] MyChart Communication Social History Tobacco Use [...] on filedocumented in this encounter Care Teams Sales Product Manager Relationship Specialty Start Date End Date Mari Chau PA-C [address] [place] [address] PCP - General Family Practice 10/31/10 Mari Chau PA-C [address] [place] [address] PCP - Assigned PCP 11/05/10 07/08/18 Mari Chau PA-C [address] [place] [address] Assigned PCP 02/07/12 02/14/19 documented as of this encounter
--- OUTSIDE RECORDS SUMMARY | 2023-11-27 10:33 | XMS_ITS | Encounter Summary ---
Author Organization [facility] Address [address] [place] [address]. [place] [address] Care Team Providers Care Global Sales Executive Name Role Phone aMri Chau PA-C Primary Care Pr ovider Mari Chau PA-C Unavailable Mari Chau PA-C Unavailable Reason for Visit * Reason Onset Date Comments Referral 12/12/2012 Encounter Details Date Type Department Care Team (Late st Contact Info) Description 12/12/2012 Telephone [facility] [phone] [place] [phone] Mari Chau PA-C [id number] [place] [address] Referral Social History Tobacco Use Types Packs/Day Years [...] encounter Miscellaneous Notes * Telephone Encounter - Shanti Ashby - 12/12/2012 12:27 PM CDT Lm for pt asked if her ins needs a referral if not she can call back to schedule an appt with Dr. Llamas or Dr. Irizarry. Gave hours for this clinic and gave info for [place] clinic. If she needs a referral Mari will need to sign off on Saturday when she returns. If needs are more urgent pt should go to . Shanti Ashby RN. * Telephone Encounter - Sylvie Tsai - 12/12/2012 11:30 AM CDT Name of caller: Bella Relationship to pt: self Reason for call: pt is still having vaginal issues and was given meds X2 and the symptoms are stillthere and bad. Mari stated she would need a referral to OBGYN if the meds didn't work. Bella wants a referral and appt [facility]. Best phone number to reach pt at is: [phone] Ok to leave a message with medical info? yes Pharmacy Information:none Sylvie Tsai, Hospital Admitting Clerk documented in this encounter Plan of Treatment Not on file documented as of this encounter Visit Diagnoses Not on filedocumented in this encounter Care Teams Global Sales Executive Relationship Specialty Start Date End Date Mari Chau PA-C [address] [place] [address] PCP - General Family Practice 10/31/10 Mari Chau PA-C [address] [place] [address] PCP - Assigned PCP 11/05/10 07/08/18 Mari Chau PA-C [address] [place] [address] Assigned PCP 02/07/12 02/14/19 documented as of this encounter
== END 2023-11-26 14:53 | disposition home or self-care (01) ==
LOC: NFLDREF 11-27 10:30
PROVIDERS: PCP Emergency Medicine; Referring Provider Emergency Medicine; Visit Provider Otolaryngology
DX: G25.81 Restless legs syndrome (principal)
CPT/HCPCS: 82728

== ENCOUNTER 2023-12-12 14:56 | Outpatient (CLI) | payer BC, SELFPAY ==
--- OUTSIDE RECORDS SUMMARY | 2023-12-12 14:58 | XMS_ITS | Encounter Summary ---
Author Organization [facility] Address [address] [place] [address]. [place] [address] Care Team Providers Care Fisher Crab Name Role Phone Mari Chau PA-C Primary Care Pr ovider Mari Chau PA-C Unavailable Mari Chau PA-C Unavailable Reason for Visit * Reason Onset Date Comments Outreach 01/09/2017 phs att 1 Encounter Details Date Type Department Care Team (Late st Contact Info) Description 01/09/[address] [facility] [place] [address] [place] [address] Mari Chau PA-C [address] [place] [address] Outreach (phs att 1) Social [...] Attempt 1 Message on voicemail Comments: Outreach Developmental Mathematics Instructor AT documented in this encounter Plan of Treatment Not on file documented as of this encounter Visit Diagnoses Not on filedocumented in this encounter Care Teams Fisher Crab Relationship Specialty Start Date End Date Mari Chau PA-C [address] [place] [address] PCP - General Family Practice 10/31/10 Mari Chau PA-C [address] [place] [address] PCP - Assigned PCP 11/05/10 07/08/18 Mari Chau PA-C [address] [place] [address] Assigned PCP 02/07/12 02/14/19 documented as of this encounter
--- OUTSIDE RECORDS SUMMARY | 2023-12-12 14:58 | XMS_ITS | Encounter Summary ---
Author Organization [facility] Address [address] [place] [address]. [place] [address] Care Team Providers Care Packaging Designer Name Role Phone Mari Chau PA-C Primary Care Pr ovider Mari Chau PA-C Unavailable Mari Chau PA-C Unavailable Encounter Details Date Type Department Care Team (Late st Contact Info) Description 10/26/2016 MyC Medical Advice [address] [phone] Jess Wild, SENIOR BUSINESS PROCESS ANALYST Social History Tobacco Use Types Packs/Day Years [...] on filedocumented in this encounter Care Teams Packaging Designer Relationship Specialty Start Date End Date Mari Chau PA-C [address] [place] [address] PCP - General Family Practice 10/31/10 Mari Chau PA-C [address] [place] [address] PCP - Assigned PCP 11/05/10 07/08/18 Mari Chau PA-C [address] [place] [address] Assigned PCP 02/07/12 02/14/19 documented as of this encounter
--- OUTSIDE RECORDS SUMMARY | 2023-12-12 14:58 | XMS_ITS | Referral Summary ---
Author Organization [facility] Address [address] [place] [address]. [place] [address] Care Team Providers Care Rehabilitation Engineer Name Role Phone Adolfo Chau PA-C Primary Care Pr ovider Allergies Active Allergy Reactions Criticality Noted Date Comments Erythromycin 08/31/2002 Seasonal Allergies 11/16/2013 Medications Medication Sig Dispensed Refills Start Date End Date Status CRANBERRY daily Active UNABLE TO FIND MEDICATION NAME: biocell collagen Active UNABLE TO FIND MEDICATION NAME: fluconauzole Active UNABLE TO FIND MEDICATION NAME: clobetasol ointment Active clotrimazole-betame thasone (LOTRISONE) creamIndications:Ac [place] vaginitis Apply topically 2 times daily 15 [...] T Respiratory Rate 16 04/08/2013 10:19 AM ATTENDANCE CLERK Oxygen Saturation 98% 02/09/2016 2:24 PM CDT [...] & 2 ANTIBODY Routine 9 9:03 AM ATTENDANCE CLERK Supervision of Other Normal from Last 3 Months or Most Recently Relevant to Health Maintenance Results * (ABNORMAL) Lipid panel reflex to direct LDL (11/16/2013 8:35 AM CDT) Cholesterol 145 <200 mg/dL [facility] Comment: LDL Cholesterol is the primary guide to therapy. The NCEP recommends further evaluation of: patients with cholesterol greater than 200 mg/dL if additional risk factors are present, cholesterol greater than 240 mg/dL, triglycerides greater than 150 mg/dL, or HDL less than 40 mg/dL. Triglycerides 60 0 - 150 mg/dL [facility] HDL Cholesterol 48(L) >50 mg/dL [facility] LDL Cholesterol Calculated 85 0 - 129 mg/dL [facility] Comment: LDL Cholesterol is the primary guide to therapy: LDL-cholesterol goal in high risk patients is <100 mg/dL and in very high risk patients is <70 mg/dL. VLDL-Cholesterol 12 0 - 30 mg/dL [facility] Cholesterol/HDL Ratio 3.0 0.0 - 5.0 [facility] Blood specimen (specimen) 11/16/2013 8:35 AM CDT 11/16/2013 8:40 AM CDT Adolfo Chau PA-C LAB - BL OOD ORDERABLES [facility] [address] [place] [address] * Comprehensive metabolic panel (11/16/2013 8:35 AM CDT) Pathologist [facility] Sodium 141 133 - 144 mmol/L [facility] Potassium 4.0 3.4 - 5.3 mmol/L [facility] Chloride 103 94 - 109 mmol/L [facility] Carbon Dioxide 26 20 - 32 mmol/L [facility] Anion Gap 11 6 - 17 mmol/L [facility] Glucose 84 60 - 99 mg/dL [facility] Urea Nitrogen 15 5 - 24 mg/dL [facility] Creatinine 0.79 0.52 - 1.04 mg/dL [facility] GFR Estimate 82 >60 mL/min/1.7 m2 [facility] GFR Estimate If Black >90 >60 mL/min/1.7 m2 [facility] Calcium 9.0 8.5 - 10.4 mg/dL [facility] Bilirubin Total 0.7 0.2 - 1.3 mg/dL [facility] Albumin 4.2 3.9 - 5.1 g/dL [facility] Protein Total 7.1 6.8 - 8.8 g/dL [facility] Alkaline Phosphatase 40 40 - 150 U/L [facility] ALT 25 0 - 50 U/L [facility] AST 23 0 - 45 U/L [facility] Blood specimen (specimen) 11/16/2013 8:35 AM CDT 11/16/2013 8:40 AM CDT Adolfo Chau PA-C LAB - BL OOD ORDERABLES [facility] [address] [place] [address] * PAP IMAGED THIN LAYER SCREEN (08/02/2011 9:26 AM CDT) PAP TANYA Rogers Report Patient Name: BELLA COFFEY MR#: [id number] Specimen #: [id number] Collected: 08/02/2011 Received: 08/02/2011 Reported: 08/03/2011 14:07 Ordering Phy(s): DAOLFO CHAU SPECIMEN/STAIN PROCESS: Pap imaged thin layer [...] MAXIMILIAN Moise (ASCP) Processed and screened at [facility], [facility] CLINICAL HISTORY: Previous normal pap Date of Last Pap: 12/15/09, Papanicolaou Test Limitations: ??Cervical cytology is a screening test with limited sensitivity; regular screening is critical for cancer prevention; Pap tests are primarily effective for the diagnosis/preventi on of squamous cell carcinoma, not adenocarcinomas or other cancers. TESTING LAB LOCATION: [facility] [address] [place], [place] ??[address] COLLECTION SITE: Client: ??[facility] Location: [facility] ([facility]) [facility] Cytologic material (specimen) 08/02/2011 9:26 AM CDT 08/02/2011 2:05 PM CDT Adolfo Chau PA-C LAB - OP TIME CLINICAL SPECIMEN [facility] * HIV 1 & 2, SCREEN (05/03/2009 9:03 AM ATTENDANCE CLERK) HIV 1&2 Antibody Negative NEG [facility] 05/03/2009 9:03 AM ATTENDANCE CLERK 05/03/2009 9:08 AM ATTENDANCE CLERK Earl Issa MD LABORATORY [facility] LABS from Last 3 Months or Most Recently Relevant to Health Maintenance Care Teams Rehabilitation Engineer Relationship Specialty Start Date End Date Adolfo Chau PA-C [address] [place], [place] [id number] PCP - General Family Practice 10/31/10
--- OUTSIDE RECORDS SUMMARY | 2023-12-12 14:58 | XMS_ITS | Clinical Summary ---
Author Organization [facility] Address [address] [place] [address]. [place] [address] Care Team Providers Care Waxer Tender Name Role Phone Adolfo Chau PA-C Primary Care Pr ovider Allergies Active Allergy Reactions Criticality Noted Date Comments Erythromycin 08/31/2002 Seasonal Allergies 11/16/2013 Medications Medication Sig Dispensed Refills Start Date End Date Status CRANBERRY daily Active UNABLE TO FIND MEDICATION NAME: biocell collagen Active UNABLE TO FIND MEDICATION NAME: fluconauzole Active UNABLE TO FIND MEDICATION NAME: clobetasol ointment Active clotrimazole-betame thasone (LOTRISONE) creamIndications:Ac [place] vaginitis Apply topically 2 times daily 15 [...] T Respiratory Rate 16 04/08/2013 10:19 AM PNEUMATIC DEICER INSPECTOR Oxygen Saturation 98% 02/09/2016 2:24 PM CDT [...] 1 & 2 ANTIBODY Routine 9:03 AM PNEUMATIC DEICER INSPECTOR Supervision of Other Normal from Last 3 Months or Most Recently Relevant to Health Maintenance Results * (ABNORMAL) Lipid panel reflex to direct LDL (11/16/2013 8:35 AM CDT) Cholesterol 145 <200 mg/dL [facility] Comment: LDL Cholesterol is the primary guide to therapy. The NCEP recommends further evaluation of: patients with cholesterol greater than 200 mg/dL if additional risk factors are present, cholesterol greater than 240 mg/dL, triglycerides greater than 150 mg/dL, or HDL less than 40 mg/dL. Triglycerides 60 0 - 150 mg/dL [facility] HDL Cholesterol 48(L) >50 mg/dL [facility] LDL Cholesterol Calculated 85 0 - 129 mg/dL [facility] Comment: LDL Cholesterol is the primary guide to therapy: LDL-cholesterol goal in high risk patients is <100 mg/dL and in very high risk patients is <70 mg/dL. VLDL-Cholesterol 12 0 - 30 mg/dL [facility] Cholesterol/HDL Ratio 3.0 0.0 - 5.0 [facility] Blood specimen (specimen) 11/16/2013 8:35 AM CDT 11/16/2013 8:40 AM CDT Adolfo Chau PA-C LAB - BL OOD ORDERABLES [facility] [address] [place] [address] * Comprehensive metabolic panel (11/16/2013 8:35 AM CDT) Sodium 141 133 - 144 mmol/L [facility] Potassium 4.0 3.4 - 5.3 mmol/L [facility] Chloride 103 94 - 109 mmol/L [facility] Carbon Dioxide 26 20 - 32 mmol/L [facility] Anion Gap 11 6 - 17 mmol/L [facility] Glucose 84 60 - 99 mg/dL [facility] Urea Nitrogen 15 5 - 24 mg/dL [facility] Creatinine 0.79 0.52 - 1.04 mg/dL [facility] GFR Estimate 82 >60 mL/min/1.7 m2 [facility] GFR Estimate If Black >90 >60 mL/min/1.7 m2 [facility] Calcium 9.0 8.5 - 10.4 mg/dL [facility] Bilirubin Total 0.7 0.2 - 1.3 mg/dL [facility] Albumin 4.2 3.9 - 5.1 g/dL [facility] Protein Total 7.1 6.8 - 8.8 g/dL [facility] Alkaline Phosphatase 40 40 - 150 U/L [facility] ALT 25 0 - 50 U/L [facility] AST 23 0 - 45 U/L [facility] Blood specimen (specimen) 11/16/2013 8:35 AM CDT 11/16/2013 8:40 AM CDT Adolfo Chau PA-C LAB - BL OOD ORDERABLES [facility] [address] [place] [address] * PAP IMAGED THIN LAYER SCREEN (08/02/2011 9:26 AM CDT) PAP NIL EDITH Rogers Report Patient Name: BELLA COFFEY MR#: [id number] Specimen #: [id number] Collected: 08/02/2011 Received: 08/02/2011 Reported: 08/03/2011 14:07 [...] MAXIMILIAN Moise (ASCP) Processed and screened at [facility] CLINICAL HISTORY: Previous normal pap Date of Last Pap: 12/15/09, Papanicolaou Test Limitations: ??Cervical cytology is a screening test with limited sensitivity; regular screening is critical for cancer prevention; Pap tests are primarily effective for the diagnosis/preventi on of squamous cell carcinoma, not adenocarcinomas or other cancers. TESTING LAB LOCATION: [address] ??[phone] COLLECTION SITE: Client: ??[facility] Location: [facility] (R) [facility] Cytologic material (specimen) 08/02/2011 9:26 AM CDT 08/02/2011 2:05 PM CDT Adolfo Chau PA-C LAB - OP TIME CLINICAL SPECIMEN [facility] * HIV 1 & 2, SCREEN (05/03/2009 9:03 AM PNEUMATIC DEICER INSPECTOR) HIV 1&2 Antibody Negative NEG [facility] LABS 05/03/2009 9:03 AM PNEUMATIC DEICER INSPECTOR 05/03/2009 9:08 AM PNEUMATIC DEICER INSPECTOR Earl Issa MD LABORATORY [facility] LABS from Last 3 Months or Most Recently Relevant to Health Maintenance Care Teams Waxer Tender Relationship Specialty Start Date End Date Adolfo Chau PA-C [address] [place] [address] PCP - General Family Practice 10/31/10
--- OUTSIDE RECORDS SUMMARY | 2023-12-12 14:59 | XMS_ITS | Encounter Summary ---
Author Organization [facility] Address [address] [place] [address]. [place] [address] Care Team Providers Care Calendering Supervisor Name Role Phone Mari Chau PA-C Primary Care Pr ovider Mari Chau PA-C Unavailable Mari Chau PA-C Unavailable Reason for Visit * Reason Onset Date Comments MyChart Communication 02/13/2016 Encounter Details Date Type Department Care Team (Latest Contact Info) Description 02/13/2016 [facility] [place] [facility] [id number] [place] [phone] Mari Chau PA-C [address] [place] [address] MyChart Communication Social History Tobacco Use [...] on filedocumented in this encounter Care Teams Calendering Supervisor Relationship Specialty Start Date End Date Mari Chau PA-C [address] [place] [address] PCP - General Family Practice 10/31/10 Mari Chau PA-C [address] [place] [address] PCP - Assigned PCP 11/05/10 07/08/18 Mari Chau PA-C [address] [place] [address] Assigned PCP 02/07/12 02/14/19 documented as of this encounter
--- OUTSIDE RECORDS SUMMARY | 2023-12-12 14:59 | XMS_ITS | Encounter Summary ---
Author Organization [facility] Address [address] [place] [address]. [place] [address] Care Team Providers Care Equipment Planner Name Role Phone Mari Chau PA-C Primary Care Pr ovider Mari Chau PA-C Unavailable Mari Chau PA-C Unavailable Reason for Visit * Reason Onset Date Comments MyChart Communication 12/08/2013 Encounter Details Date Type Department Care Team (Latest Contact Info) Description 12/08/2013 MyC Medical Advice [facility] [id number] [place] [phone] Mari Chau PA-C [id number] [place] [address] MyChart Communication Social History Tobacco Use [...] on filedocumented in this encounter Care Teams Equipment Planner Relationship Specialty Start Date End Date Mari Chau PA-C [address] [place] [address] PCP - General Family Practice 10/31/10 Mari Chau PA-C [address] [place] [address] PCP - Assigned PCP 11/05/10 07/08/18 Mari Chau PA-C [address] [place] [address] Assigned PCP 02/07/12 02/14/19 documented as of this encounter
--- OUTSIDE RECORDS SUMMARY | 2023-12-12 14:59 | XMS_ITS | Encounter Summary ---
Author Organization [facility] Address [address] [place] [address]. [place] [address] Care Team Providers Care Cyber Forensic Specialist Name Role Phone Mari Chau PA-C Primary Care Pr ovider Mari Chau PA-C Unavailable Mari Chau PA-C Unavailable Reason for Visit * Reason Onset Date Comments MyChart Communication 02/15/2016 Encounter Details Date Type Department Care Team (Latest Contact Info) Description 02/15/2016 [facility] Medical Advice [facility] [id number] [place] [phone] Mari Chau PA-C [id number] [place] [address] MyChart Communication Social History Tobacco Use [...] on filedocumented in this encounter Care Teams Cyber Forensic Specialist Relationship Specialty Start Date End Date Mari Chau PA-C [address] [place] [address] PCP - General Family Practice 10/31/10 Mari Chau PA-C [address] [place] [address] PCP - Assigned PCP 11/05/10 07/08/18 Mari Chau PA-C [address] [place] [address] Assigned PCP 02/07/12 02/14/19 documented as of this encounter
--- OUTSIDE RECORDS SUMMARY | 2023-12-12 14:59 | XMS_ITS | Encounter Summary ---
Author Organization [facility] Address [address] [place] [address]. [place] [address] Care Team Providers Care Asphalt Surface Heater Operator Name Role Phone Mari Chau PA-C Primary Care Pr ovider Mari Chau PA-C Unavailable Mari Chau PA-C Unavailable Encounter Details Date Type Department Care Team (Late st Contact Info) Description 03/04/2015 MyC Medical Advice [address] [phone] Jess Wild, RESIST COATER DEVELOPER Social History Tobacco Use Types Packs/Day Years [...] on filedocumented in this encounter Care Teams Asphalt Surface Heater Operator Relationship Specialty Start Date End Date Mari Chau PA-C [address] [place] [address] PCP - General Family Practice 10/31/10 Mari Chau PA-C [address] [place] [address] PCP - Assigned PCP 11/05/10 07/08/18 Mari Chau PA-C [address] [place] [address] Assigned PCP 02/07/12 02/14/19 documented as of this encounter
--- OUTSIDE RECORDS SUMMARY | 2023-12-12 14:59 | XMS_ITS | Encounter Summary ---
Author Organization [facility] Address [address] [place] [address]. [place] [address] Care Team Providers Care Audio Production Manager Name Role Phone Mari Chau PA-C Primary Care Pr ovider Mari Chau PA-C Unavailable Mari Chau PA-C Unavailable Encounter Details Date Type Department Care Team (Late st Contact Info) Description 05/21/2016 MyC Medical Advice [address] [phone] Jess Wild, HEADWAITRESS Social History Tobacco Use Types Packs/Day Years [...] on filedocumented in this encounter Care Teams Audio Production Manager Relationship Specialty Start Date End Date Mari Chau PA-C [address] [place] [address] PCP - General Family Practice 10/31/10 Mari Chau PA-C [address] [place] [address] PCP - Assigned PCP 11/05/10 07/08/18 Mari Chau PA-C [address] [place] [address] Assigned PCP 02/07/12 02/14/19 documented as of this encounter
--- OUTSIDE RECORDS SUMMARY | 2023-12-12 14:59 | XMS_ITS | Encounter Summary ---
Author Organization [facility] Address [address] [place] [address]. [place] [address] Care Team Providers Care Last Puller Name Role Phone Mari Chau PA-C Primary Care Pr ovider Mari Chau PA-C Unavailable Mari Chau PA-C Unavailable Reason for Visit * Reason Onset Date Comments MyChart Communication 02/16/2016 Encounter Details Date Type Department Care Team (Latest Contact Info) Description 02/16/2016 MyC Medical Advice [facility] [id number] [place] [phone] Mari Chau PA-C [id number] [place] [address] MyChart Communication Social History Tobacco Use [...] on filedocumented in this encounter Care Teams Last Puller Relationship Specialty Start Date End Date Mari Chau PA-C [address] [place] [address] PCP - General Family Practice 10/31/10 Mari Chau PA-C [address] [place] [address] PCP - Assigned PCP 11/05/10 07/08/18 Mari Chau PA-C [address] [place] [address] Assigned PCP 02/07/12 02/14/19 documented as of this encounter
--- OUTSIDE RECORDS SUMMARY | 2023-12-12 14:59 | XMS_ITS | Encounter Summary ---
Author Organization [facility] Address [address] [place] [address]. [place] [address] Care Team Providers Care Roustabout Supervisor Name Role Phone Mari Chau PA-C Primary Care Pr ovider Mari Chau PA-C Unavailable Mari Chau PA-C Unavailable Reason for Visit * Reason Onset Date Comments Referral 12/12/2012 Encounter Details Date Type Department Care Team (Late st Contact Info) Description 12/12/2012 Telephone [facility] [id number] [place] [phone] Mari Chau PA-C [id number] [place] [address] Referral Social History Tobacco Use Types [...] for this clinic and gave info for [facility] clinic. If she needs a referral Mari [...] phone number to reach pt at is: [phone] Ok to leave a message with medical info? yes Pharmacy Information:none Sylvie Tsai, Site Safety Coordinator documented in this encounter Plan of Treatment Not on file documented as of this encounter Visit Diagnoses Not on filedocumented in this encounter Care Teams Roustabout Supervisor Relationship Specialty Start Date End Date Mari Chau PA-C [address] [place] [address] PCP - General Family Practice 10/31/10 Mari Chau PA-C [address] [place] [address] PCP - Assigned PCP 11/05/10 07/08/18 Mari Chau PA-C [address] [place] [address] Assigned PCP 02/07/12 02/14/19 documented as of this encounter
--- OUTSIDE RECORDS SUMMARY | 2023-12-12 14:59 | XMS_ITS | Encounter Summary ---
Author Organization [facility] Address [address] [place] [address]. [place] [address] Care Team Providers Care Machine Cloth Trimmer Name Role Phone Steph Venegas MD Primary Care Provid er Mari Chau PA-C Primary Care Pr ovider Mari Chau PA-C Unavailable Mari Chau PA-C Unavailable Encounter Details Date Type Department Care Team (Late st Contact Info) Description 11/04/2009 [facility] [address] [place] [address] Antonio Louis MD NO INFO [...] Primary documented in this encounter Care Teams Machine Cloth Trimmer Relationship Specialty Start Date End Date Steph Venegas MD [address] [place] [address] PCP - General 03/27/04 10/30/10 Mari Chau PA-C [address] [place] [address] PCP - General Family Practice 10/31/10 Mari Chau PA-C [address] [place] [address] PCP - Assigned PCP 11/05/10 07/08/18 Mari Chau PA-C [address] [place] [address] Assigned PCP 02/07/12 02/14/19 documented as of this encounter
--- OUTSIDE RECORDS SUMMARY | 2023-12-12 14:59 | XMS_ITS | Encounter Summary ---
Author Organization [facility] Address [address] [place] [address]. [place] [address] Care Team Providers Care Warm In Name Role Phone Mari Chau PA-C Primary Care Pr ovider Mari Chau PA-C Unavailable Mari Chau PA-C Unavailable Encounter Details Date Type Department Care Team (Late st Contact Info) Description 06/14/2014 MyC Medical Advice [address] [phone] Tamiko Llamas, DO [address] [facility] [address] [place] [address] Social History Tobacco Use Types [...] on filedocumented in this encounter Care Teams Warm In Relationship Specialty Start Date End Date Mari Chau PA-C [address] [place] [address] PCP - General Family Practice 10/31/10 Mari Chau PA-C [address] [place] [address] PCP - Assigned PCP 11/05/10 07/08/18 Mari Chau PA-C [address] [place] [address] Assigned PCP 02/07/12 02/14/19 documented as of this encounter
--- OUTSIDE RECORDS SUMMARY | 2023-12-12 14:59 | XMS_ITS | Encounter Summary ---
Author Organization [place] Address [address] [place] [address]. [place] [address] Care Team Providers Care Copyholder Name Role Phone Mari Chau PA-C Primary Care Pr ovider Mari Chau PA-C Unavailable Mari Chau PA-C Unavailable Encounter Details Date Type Department Care Team (Late st Contact Info) Description 06/24/2014 MyC Medical Advice [address] [phone] Tamiko Llamas, DO [address] [facility] 100 [place] [address] Fatigue (Primary Dx) Social History [...] fatigue documented in this encounter Care Teams Copyholder Relationship Specialty Start Date End Date Mari Chau PA-C [address] [place] [address] PCP - General Family Practice 10/31/10 Mari Chau PA-C [address] [place] [address] PCP - Assigned PCP 11/05/10 07/08/18 Mari Chau PA-C [address] [place] [address] Assigned PCP 02/07/12 02/14/19 documented as of this encounter
--- OUTSIDE RECORDS SUMMARY | 2023-12-12 14:59 | XMS_ITS | Encounter Summary ---
Author Organization [facility] Address [address] [place] [address]. [place] [address] Care Team Providers Care Sheet Pile Driver Operator Name Role Phone Mari Chau PA-C Primary Care Pr ovider Mari Chau PA-C Unavailable Mari Chau PA-C Unavailable Encounter Details Date Type Department Care Team (Late st Contact Info) Description 05/17/2015 MyC Medical Advice [address] [phone] Jess Wild, FIELD CROP HARVEST WORKER Social History Tobacco Use Types Packs/Day Years [...] on filedocumented in this encounter Care Teams Sheet Pile Driver Operator Relationship Specialty Start Date End Date Mari Chau PA-C [address] [place] [address] PCP - General Family Practice 10/31/10 Mari Chau PA-C [address] [place] [address] PCP - Assigned PCP 11/05/10 07/08/18 Mari Chau PA-C [address] [place] [address] Assigned PCP 02/07/12 02/14/19 documented as of this encounter
== END 2023-12-12 14:57 | disposition home or self-care (01) ==
LOC: LKVREF 14:57
PROVIDERS: PCP Emergency Medicine; Visit Provider Emergency Medicine
DX: E61.1 Iron deficiency (principal)
CPT/HCPCS: 86231; 86258; 86364

== ENCOUNTER 2023-12-19 08:58 | Outpatient (CLI) | payer BC, SELFPAY ==
--- OUTSIDE RECORDS SUMMARY | 2023-12-20 11:28 | XMS_ITS | Encounter Summary ---
Author Organization [facility] Address [address] [place] [address]. [place] [address] Care Team Providers Care Fret Saw Operator Name Role Phone Mari Chau PA-C Primary Care Pr ovider Mari Chau PA-C Unavailable Mari Chau PA-C Unavailable Reason for Visit * Reason Onset Date Comments MyChart Communication 12/08/2013 Encounter Details Date Type Department Care Team (Latest Contact Info) Description 12/08/2013 MyC Medical Advice [facility] [id number] [place] [phone] Mari Chau PA-C [id number] [place] [address] MyChart Communication Social History Tobacco Use [...] on filedocumented in this encounter Care Teams Fret Saw Operator Relationship Specialty Start Date End Date Mari Chau PA-C [address] [place] [address] PCP - General Family Practice 10/31/10 Mari Chau PA-C [address] [place] [address] PCP - Assigned PCP 11/05/10 07/08/18 Mari Chau PA-C [address] [place] [address] Assigned PCP 02/07/12 02/14/19 documented as of this encounter
--- OUTSIDE RECORDS SUMMARY | 2023-12-20 11:28 | XMS_ITS | Encounter Summary ---
Author Organization [facility] Address [address] [place] [address]. [place] [address] Care Team Providers Care Fire Extinguisher Installer Name Role Phone Mari Chau PA-C Primary Care Pr ovider Mari Chau PA-C Unavailable Mari Chau PA-C Unavailable Encounter Details Date Type Department Care Team (Late st Contact Info) Description 05/21/2016 MyC Medical Advice [address] [phone] Jess Wild, HOLD WORKER Social History Tobacco Use Types Packs/Day [...] on filedocumented in this encounter Care Teams Fire Extinguisher Installer Relationship Specialty Start Date End Date Mari Chau PA-C [address] [place] [address] PCP - General Family Practice 10/31/10 Mari Chau PA-C [address] [place] [address] PCP - Assigned PCP 11/05/10 07/08/18 Mari Chau PA-C [address] [place] [address] Assigned PCP 02/07/12 02/14/19 documented as of this encounter
--- OUTSIDE RECORDS SUMMARY | 2023-12-20 11:28 | XMS_ITS | Encounter Summary ---
Author Organization [facility] Address [address] [place] [address]. [place] [address] Care Team Providers Care Resident Programs Assistant Name Role Phone Mari Chau PA-C Primary Care Pr ovider Mari Chau PA-C Unavailable Mari Chau PA-C Unavailable Reason for Visit * Reason Onset Date Comments MyChart Communication 02/13/2016 Encounter Details Date Type Department Care Team (Latest Contact Info) Description 02/13/2016 [facility] Medical Advice [facility] [id number] [place] [phone] Mari Chau PA-C [address] [place] [address] MyChart Communication Social History Tobacco Use [...] on filedocumented in this encounter Care Teams Resident Programs Assistant Relationship Specialty Start Date End Date Mari Chau PA-C [address] [place] [address] PCP - General Family Practice 10/31/10 Mari Chau PA-C [address] [place] [address] PCP - Assigned PCP 11/05/10 07/08/18 Mari Chau PA-C [address] [place] [address] Assigned PCP 02/07/12 02/14/19 documented as of this encounter
--- OUTSIDE RECORDS SUMMARY | 2023-12-20 11:28 | XMS_ITS | Encounter Summary ---
Author Organization [facility] [place] [facility] Address [address] [place] [address]. [place] [address] Care Team Providers Care Ssn/Ssbn Weapons Equipment Operator Name Role Phone Mari Chau PA-C Primary Care Pr ovider Mari Chau PA-C Unavailable Mari Chau PA-C Unavailable Reason for Visit * Reason Onset Date Comments Outreach 01/09/2017 phs att 1 Encounter Details Date Type Department Care Team (Late st Contact Info) Description 01/09/2017 Telephone [facility] [place] [address] [place] [address] Mari Chau PA-C [address] [place] [address] Outreach (phs att 1) Social [...] Attempt 1 Message on voicemail Comments: Outreach Die Attacher AT documented in this encounter Plan of Treatment Not on file documented as of this encounter Visit Diagnoses Not on filedocumented in this encounter Care Teams Ssn/Ssbn Weapons Equipment Operator Relationship Specialty Start Date End Date Mari Chau PA-C [address] [place] [address] PCP - General Family Practice 10/31/10 Mari Chau PA-C [address] [place] [address] PCP - Assigned PCP 11/05/10 07/08/18 Mari Chau PA-C [address] [place] [address] Assigned PCP 02/07/12 02/14/19 documented as of this encounter
--- OUTSIDE RECORDS SUMMARY | 2023-12-20 11:28 | XMS_ITS | Continuity of Care Document ---
Author Organization [place] - [facility], [place] Address [address] [place] [address] Care Team Providers Care Assistant Commissioner Name Role Phone YADIRA MARTINEZ Primary Care Provider [phone] CHAIM JAMES Referring Provider Assessment Encounter Date Assessment Date Assessment LastModified by Organization Details LastModified Time 09/19/2023 09/19/2023 Patient presents to therapy with signs and symptoms consistent with the ICD 10 diagnoses noted below. Main findings include: significant widespread body fatigue and tension that is worse in jaw, neck, shoulders and arms. Present for past 2 years. Longerstanding L TMJ issues with clicking and use of a splint which helps manage headaches. Condition is evolving with moderate irritability and personal factors/comorbidi ties affecting the plan of care (see history section for list of factors). These findings limit the pt from participation in the following functional activities: daily chores of cleaning/cooking/ lifting due to fatigue and does limit ability to speak frequently and chew with jaw. Treatment plan to include reducing myalgia, increasing joint ROM, teaching self management strategies and strengthening to provide long-term symptom reduction. The patient was educated on the risks/benefits of physical therapy and the anatomy pertaining to their present condition. The physical therapy POC and goals were discussed with the patient and all present questions/concern s were addressed. Pt agrees to treatment plan. Rehabilitation potential is fair. Limited by unclear diagnosis of fatigue. Is this possibly chronic fatigue syndrome, long-Covid, a sleep disorder (not ANDREA) or something else? Pt continues assessments to help determine. Treatment to include: therapeutic exercise, manual therapy, neuro muscular re education, therapeutic activities, self care, possible dry needling and modalities as needed. Frequency: will be prn for up to 3 sessions to help reduce tension, teach self care skills and help connect pt to resources to help with fatigue. [email or web address] Not available 09/19/2023 20:19:39 Plan of Treatment Reminders Order Date Submit Date Provider Last Modified By Organization Details Last Modified Time Details Appointments None record ed. Lab None record ed. Referral None record ed. Procedures None record ed. Surgeries None record ed. Imaging None record ed. Medication Orders None record ed. Patient Targets Encounter Date Encounter Id Patient Goals Patient Target Last Modified By Organization Details Last Modified Time termite technician goals (to be met in 12 weeks):*Tristan pino will report improved score on JFWL by at least 10%, indicating clinically significant improvement in self-reported level of function to allow patient to safely achieve pre-onset level of function.*Tamera moody will reduce fatigue by 25% to allow her to complete 1 daily chore such as cooking, cleaning or laundry. [email or web address] Not available 09/19/2023 20:19:42 Patient Instructions Encounter Date Encounter Id Patient Instructions Last Modified By Organization Details Last Modified Time 09/19/2023 [id number] Total treatment time minutes today = 45 Next Visit Plan: wait on followups. Get splint if approved and work on other things for chronic fatigue. Patient/Therapist Goals: treat TMD to possibly help with fatigue/tension Progress Note Date: 11/13 [email or web address] Not available 09/19/2023 20:11:58 Reason for Referral Physical Therapist Referral for Myofascial pain Referring Physician: Bakari Manjarrez, Pain Management, Encounter Date: 09/10/2023 Problems Name Status Onset Date Resolution Date Notes Provider Name and Address Organization Details Recorded Time Bilateral temporomandibular joint arthritis Active 2023 Bilateral TMJ arthralgia BAKARI Carty DDS,MS [address], [place], [address], [facility] 4 13:54:17 Myofascial pain Active 2023 masticatory and cervical BAKARI Carty DDS,MS [address] [facility] [address], [place], [address], [facility] 4 13:54:24 Sleep related bruxism Active 2023 BAKARI NASCIMENT Carloz DDS,MS [address], [place], [address], [facility] 4 13:38:36 Chronic pain Active 2023 BAKARI NASCIMENT Carloz DDS,MS [address], [place], [address], [facility] 4 13:38:43 Bilateral referred otalgia of ears Active 2023 BAKARI NASCIMENT Carloz DDS,MS [address], [place], [address], [facility] 4 13:53:40 Periodontal ligament strain Active 2023 BAKARI NASCIMENT CANDELARIA CartyS,MS [address], [place], [address], [facility] 4 13:54:39 Episodic tension-type headache Active 2023 BAKARI NASCIMENT Carloz DDS,MS [address], [place], [address], [facility] 4 13:58:30 Tinnitus Active 2023 Arlene Watson DPT [address], [place], [address], [facility] 4 12:20:39 Problem Notes None recorded. Procedures Surgical History Date Name Laterality Status Provider Name and Address Organization Details Recorded Time 4 46447 - PT Eval High Complexity completed Arlene Watson DPT [address], [place], [address], [facility] 09/19/2023 12:19:52 4 44314: Self Care/Home Management Training completed Arlene Watson DPT [address] [facility] [address], [place], [address], [place] [facility] 09/19/2023 20:14:50 4 84820: Therapeutic Exercise completed KELLY FlynnT [address] [facility] [address], [place], [address], [place] [facility] 09/19/2023 20:13:51 4 84881: Manual Therapy completed KELLY FlynnT [address] [facility] [address], [place], [address], [facility] 09/19/2023 20:13:58 2 [employer] [facility] 10:56:28 Imaging Results None recorded. Procedure Notes None recorded. Medical Equipment None Reported. Allergies No known drug allergies Medications Name Sig Start Date Stop Date Status Note LastModified by Organization Details LastModified Time zolpidem 5 mg tablet TAKE 1 TABLET BY MOUTH EVERY DAY AT BEDTIME TAKE PRIOR TO SLEEP STUDY 09/05 completed Not Available Not Available Not Available Vitals None Recorded Social History Question Answer Notes LastModified by Organizat ion Details LastModified Time Tobacco Smoking Status [facility] 09/10/2023 10:56:37 What Is Your Level Of Alcohol Consumption? None [email or web address] Information not available 09/10/2023 What Is Your Level Of Caffeine Consumption? Occasional Information not available 09/10/2023 Are You Currently Employed? Yes [email or web address] Information not available 09/10/2023 What Type Of Diet Are You Following? [employer] , Under 2000 Calories A Day Melissa Fernandez [email or web address] Information not available 09/10/2023 Do You Reside In Or Have You Traveled To An Area Where Ebola Virus Transmission Is Active? No [email or web address] Information not available 09/10/2023 What Is The Highest Grade Or Level Of School You Have Completed Or The Highest Degree You Have Received? 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 (0=no Pain, 10=pain As Bad As You Can Imagine) 9 [email or web address] Information not available 09/10/2023 What Number Best Describes How, During The Past Week, Pain Has Interfered With Your Enjoyment Of Life? (0=does Not Interfere, 10= Completely Interferes) 5 [email or web address] Information not available 09/10/2023 What Number Best Describes How, During The Past Week, Pain Has Interfered With Your General Activity? (0=does Not Interfere, 10=completely Interferes) 9 Information not available 09/10/2023 How Did Primary Problem Begin? 20+ Years Ago, I Was Getting The Worst Headaches/zeyad niranjan. Than My Dentist Saw Grinding Patterns On My Teeth. I Have Been Wearing A Mouthguard At Night Since Information not available 09/10/2023 How Many Children Do You Have? 2 [email or web address] Information not available 09/10/2023 What Is Your Relationship Status? Information not available 09/10/2023 Do You Feel Stressed (tense, Restless, Nervous, Or Anxious, Or Unable To Sleep At Night)? [id number] [email or web address] Information not available 09/10/2023 Do You Use Any Illicit Or Recreational Drugs? No Information not available 09/10/2023 Sex: Unknown Functional Status Question Answer Note LastModified by Organization D etails LastModified Time What is your exercise level? Moderate [email or web address] Information not available 09/10/2023 Mental Status None recorded. Family History Relationship Description Onset Age of this Age Resolved Age Notes Father Sleep apnea Father Hypercholesterolemia Son Sleep apnea Mother Hypercholesterolemia Maternal Grandfather Family history of malignant neoplasm Paternal Grandmother Family history of malignant neoplasm Medical History Condition Response Muscle, Joint, or Bone Problems Y Acid Reflux (GERD) Y Thyroid Problems Y Gynecological HistoryNo gynecological history recorded. Obstetrics History GPAL:G 0 P 0 0 0 0 Past Encounters Encounter ID Performer Location Encounter Start Date Encounter Closed Date Diagnosis/Indication Diagnosis SNOMED-CT Code [id number] BAKARI MANJARREZ DDS,MS [place] [address] [place] [id number] 09/10/2023 10:43:07 09/10/2023 12:20:54 Myofascial pain 182018487 Bilateral temporomandibular joint arthritis 365119987448002 03 Sleep related bruxism 27 2525622 Chronic pain 62930825 Bilateral referred otalgia of ears 208731098093230 6 Periodonta l ligament strain 342349369 Episodic t ension-type headache 754393056 [id number] Arleen Watson, DPT [place] [address] [place] [id number] 09/19/2023 18:54:57 09/19/2023 20:16:24 Bilateral referred otalgia of ears 836962872921477 6 Bilateral temporomandibular joint arthritis 289188037547562 03 Chronic pain 50394440 Episodic t ension-type headache 657935810 Myofascial pain 16602119 9 Periodonta l ligament strain 198635359 Sleep related bruxism 27 1759808 Tinnitus 70952752 Health Concerns Section Related Observation LastModified by Organization Detai ls LastModified Time None Recorded Concern Status LastModified by Organization Details LastModified Time None Recorded Payers Encounter Date Sequence Insurance Name Policy Number Policy Miranda Covered Member ID Miranda Member ID Guarantor Name 09/19/2023 1 [place] [id number] 1 Bella Kinney [id number] Bella Kinney Notes Date Note Type Note Provider Name and Address Organization Details Recorded Time 09/19/2023 text/html HPI Notes: Norma covarrubias presents today for PT evaluation regarding: tooth pain, tinnitus, headaches and weakness. Significant full body fatigue that is worse in her arms and face is her primary concern that affects her QOL. Symptoms present for: 20+ years of TMD, 2 years onset of increased tension and body-wide fatigue. For duration, patient reports constant. For symptom triggers, patient reports clenching, bruxism, stress, and anxiety. For aggravating factors, patient reports stress, anxiety, grinding teeth, clenching the teeth, and chewing. For alleviating factors, patient reports massage, heat, ice, splint therapy, and physical therapy. Current symptoms are reported at 01/13. Pt was previously able to complete ADLs and IADLs I without limitation or pain. Functional limitations and participation restrictions currently include: *yawning *speaking *laughing *oral hygiene *eating *weakness of UEs - difficulty picking up a gallon of milk *poor sleep *cold feet/hands Personal factors and/or comorbidities affecting the plan of care include: *Headaches: tension and migraines reported by pt - relieved with salvage determiner splint use. *Clenching *Bruxism *Stress *Medications: *Stimulant use: caffeine, former smoker *Medical/Surgical Hx: gynecological surgery 2021, GERD, thyroid dysfunction. Goiter. Lateral epicondylitis, back pain. Covid - ? long covid. Denies: numbness, tingling, vision changes, swallowing difficulty. Previous Treatment: chiropractic, PT, dry needling. Pending sleep consult at [facility], pt reports 2 previous studies were negative. Oral splint effective for reducing migraines per pt. Doing scream face, TUTA. Patient Goals include: treat TMD to possibly help with fatigue/tension. Patient Reported Outcome JFLS-8 (out of 80): 09/18=12 Arlene Watson DPT [address], [place], [address], [facility] 09/19/2023 20:19:54 OBGyn Episode No OBEpisode recorded.
--- OUTSIDE RECORDS SUMMARY | 2023-12-20 11:28 | XMS_ITS | Data Portability ---
Author Organization [place] [facility] Address [address] [place] [address] Care Team Providers Care Validation Architect Name Role Phone JUAN YADIRA Primary Care Provider CHAIM JAMES Referring Provider [phone] Assessment Encounter Date Assessment Date Assessment LastModified by Organization Details LastModified Time 09/10/2023 09/10/2023 Today I spent a considerable amount of time discussing the patients past medical and personal history, as well as performing a physical examination all of which is documented in it's entirety in the electronic health record. I reviewed the pathophysiology of the disorder, potential contributing and risk factors as well as treatment options to address their complaints. I did not recommend advanced imaging and today no imaging was obtained. Today we had a long discussion regarding the relationship between their chronic pain disorder and muscle tension. I explained to the patient how the contribution of their masticatory and cervical muscles, and increased autonomic nervous system activity together can contribute to their pain disorder. We discussed the different contributing factors to these symptoms. We also discussed oral habits which affect the jaw muscles, postural issues for the neck muscles and the role stress, tension, anxiety and emotions factors which play into autonomic nervous system arousal. We discussed how these issues may need to be addressed concurrently in order to effectively address their complaints. It was explained how the autonomic response can increase muscle tension in both the masticatory and cervical muscle groups. A multidisciplinary treatment plan to address all these factors was outlined with the patient. From a treatment perspective, I have recommended beginning a home self-management program designed to rest the muscles of mastication and reduce inflammation in the temporomandibular joints. This includes utilizing moist heat and ice compresses, eating a soft food or pain-free diet, bilateral chewing, identifying and decreasing daytime oral habits, as well as sleep position modification. Beyond self-management, I believe there would be benefit from the use of a mandibular intraoral splint to help stabilize the musculoskeletal structures of the jaw, as well as to protect these structures from the ill effects of sleep bruxism. Today we obtained digital scans to begin the fabrication for a custom oral appliance. Additionally, I suggested working with our multi-specialty program, which would include work with our physical therapist on home stretching exercise, as well as posture correction, as well as working with our health psychologist on relaxation, stress management techniques, and ways to reduce muscle tension. I also recommended that Bella engage in our Pain Prevention Program and work with a health head strength and conditioning coach to help her integrate self management and relaxation into her daily routine. In addition I've suggested that they have evaluation with one of our medical providers for further medical evaluation of their chronic pain disorder. Bella would like to start treatment with an intraoral splint and rehabilitation with physical therapy. We also discussed trigger point injections as a way to help bridge the gap into further multidisciplinary treatment. We will consider it at follow-up. She will also be sending us a copy of her recent sleep studies for my review. History was obtained from the patient. The patient has 5+ diagnoses they would like to address. This case is moderate complexity because of multiple diagnoses with chronic symptoms. Data reviewed included: no records were available today. Risk of complications include progressive disease/symptoms. Today time spent may have included a review of past records, history taking, review of diagnoses, contributing factors, treatment plan, diagnostic testing, prognosis, expectations, risks and complications of treatment/no treatment, discussions with other providers and completing documentation was 60 minutes. Cost of care and insurance coverage was reviewed and discussed with the patient. Not available 09/10/2023 21:47:02 09/19/2023 09/19/2023 Patient presents to therapy with [...] is evolving with moderate irritability and personal factors/comorbiditi es affecting the plan of care (see history section for list of factors). These findings limit the pt from participation in the following functional activities: daily chores of cleaning/cooking/li fting due to fatigue and does limit ability [...] discussed with the patient and all present questions/concerns were addressed. Pt agrees to treatment plan. [...] Details Last Modified Time Details Appointments None recorded. Lab None recorded. Referral physical therapist referral 2023 024 [email or web address] Arlene Watson PT, [address] [facility], [address], [place], [address], 4 21:49:32 Procedures None recorded. Surgeries None recorded. Imaging None recorded. Medication Orders None recorded. Patient Targets Encounter Date Encounter Id Patient Goals Patient Target Last Modified By Organization Details Last Modified Time intermediate manager goals (to be met in 12 weeks):*Tristan [...] Modified By Organization Details Last Modified Time 09/10/2023 [id number] Self Care for TMD Not avai lable 09/10/2023 21:49:32 oral appliance preparation* Not available 09/10/2023 21:49:33 Three Jaw Exercises Not available 09/10/2023 21:49:32 trigger point injection information Not available 09/10/2023 21:49:32 Contributing factors identified at today's appointment include: postural factors, daytime clenching, sleep bruxism, oral habits, tension and difficulty relaxing. Not available 09/10/2023 21:48:19 09/19/2023 [id number] Total treatment time minutes today = 45 Next Visit Plan: wait on followups. Get splint if approved and work on other things for chronic fatigue. Patient/Therapist Goals: treat TMD to possibly help with fatigue/tension Progress Note Date: 11/13 [email or web address] Not available 09/19/2023 20:11:58 Reason for Referral Physical Therapist Referral for Myofascial pain Referring Physician: Bakari Manjarrez, Pain Management, Encounter Date: 09/10/2023 Results Created Date Observation Date Name Description Value Unit Range Abnormal Flag LastModifiedBy Organization Detail LastModifiedTime 09/10/19 24 09/10/2023 oral appli ance prepa ratio n* Type of appliance mandib ular stabil izatio n applia nce Not Available [place] [address], [place], [address], 09/09/2023 09:20:56 Result Notes None recorded. Problems Name Status Onset Date Resolution Date Notes Provider Name and Address Organization Details Recorded Time Bilateral temporomandibular joint arthritis Active 2023 Bilateral TMJ arthralgia BAKARI Carty DDS,MS [address], [place], [address], [facility] 13:54:17 Myofascial pain Active 2023 masticatory and cervical BAKARI Carty DDS,MS [address] [facility] [address], [place], [address], [facility] 4 13:54:24 Sleep related bruxism Active 2023 BAKARI NASCIMENT CANDELARIA CartyS,MS [address], [place], [address], [facility] 4 13:38:36 Chronic pain Active 2023 BAKARI NASCKRIS Carty DDS,MS [address], [place], [address], [facility] 4 13:38:43 Bilateral referred otalgia of ears Active 2023 BAKARI NASCKRIS Carty DDS,MS [address], [place], [address], [facility] 4 13:53:40 Periodontal ligament strain Active 2023 BAKARI NASCKRIS Carty DDS,MS [address], [place], [address], [facility] 4 13:54:39 Episodic tension-type headache Active 2023 BAKARI NASCKRIS Carty DDS,MS [address], [place], [address], [facility] 4 13:58:30 Tinnitus Active 2023 Arlene Watson DPT [address], [place], [address], [facility] 4 12:20:39 Problem Notes None recorded. Procedures Surgical History Date Name Laterality Status Provider Name and Address Organization Details Recorded Time 4 22983 - PT Eval High Complexity completed Arlene Watson DPT [address], [place], [address], [facility] 09/19/2023 12:19:52 4 77[address]: Self Care/Home Management Training completed Arlene Watson, KELLYT [address] [facility] [address], [place], [address], [facility] 09/19/2023 20:14:50 4 42176: Therapeutic Exercise completed KELLY FlynnT [address] [facility] [address], [place], [address], [facility] 09/19/2023 20:13:51 4 14045: Manual Therapy completed KELLY FlynnT [address] [facility] [address], [place], [address], [facility] 09/19/2023 20:13:58 2 [place] [facility] Surgery completed Barbara chavez [facility] 09/10/2023 10:56:28 Imaging Results None recorded. Procedure Notes None recorded. Medical Equipment None Reported. Allergies No known drug allergies Medications Name Sig Start Date Stop Date Status Note LastModified by Organization Details LastModified Time zolpidem 5 mg tablet TAKE 1 TABLET BY MOUTH EVERY DAY AT BEDTIME TAKE PRIOR TO SLEEP STUDY 09/05 completed Not Available Not Available Not Available Vitals Date Recorded Body height Body mass index (BMI) Body weight Systolic blood pressure Diastolic blood pressure Provider Name and Address Organization Details Last Updated DateTime 09/10/2023 160.02 cm 30.5 kg/m2 30394.89 g 107 mm[Hg] 72 mm[Hg] Barbara Freed [facility] 4 10:59:04 Social History Question Answer Notes LastModified by Organizat ion Details LastModified Time Tobacco Smoking Status Former Smoker Barbara chavez [facility] 09/10/2023 10:56:37 What Is Your Level Of Alcohol Consumption? None [email or web address] Information not available 09/10/2023 What Is Your Level Of Caffeine Consumption? Occasional [email or web address] Information not available 09/10/2023 Are You Currently Employed? Yes [email or web address] Information not available 09/10/2023 What Type Of Diet Are You Following? [employer] , Under 2000 Calories A Day Protien , Fiber [email or web address] Information not available 09/10/2023 Do You Reside In Or Have You Traveled To An Area Where Ebola Virus Transmission Is Active? No [email or web address] Information not available 09/10/2023 What Is The Highest Grade Or Level Of School You Have Completed Or The Highest Degree You Have Received? 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 (0=no Pain, 10=pain As Bad As You Can Imagine) 9 [email or web address] Information not available 09/10/2023 What Number Best Describes How, During The Past Week, Pain Has Interfered With Your Enjoyment Of Life? (0=does Not Interfere, 10= Completely Interferes) 5 [email or web address] Information not available 09/10/2023 What Number Best Describes How, During The Past Week, Pain Has Interfered With Your General Activity? (0=does Not Interfere, 10=completely Interferes) 9 [email or web address] Information not available 09/10/2023 How Did Primary Problem Begin? 20+ Years Ago, I Was Getting The Worst Headaches/zeyad niranjan. Than My Dentist Saw Grinding Patterns On My Teeth. I Have Been Wearing A Mouthguard At Night Since [email or web address] Information not available 09/10/2023 How Many Children Do You Have? 2 [email or web address] Information not available 09/10/2023 What Is Your Relationship Status? [email or web address] Information not available 09/10/2023 Do You Feel Stressed (tense, Restless, Nervous, Or Anxious, Or Unable To Sleep At Night)? [id number] [email or web address] Information not available 09/10/2023 Do You Use Any Illicit Or Recreational Drugs? No [email or web address] Information not available 09/10/2023 Sex: Unknown Functional Status Question Answer Note LastModified by Organization D etails LastModified Time What is your exercise level? Moderate [email or web address] Information not available 09/10/2023 Mental Status None [...] Encounter Closed Date Diagnosis/Indication Diagnosis SNOMED-CT Code [id number] BAKARI MANJARREZ DDS,MS [place] [address] [place] [address] 09/10/2023 10:43:07 09/10/2023 12:20:54 Myofascial pain 992619728 Bilateral temporomandibular joint arthritis 635239332973830 03 Sleep related bruxism 27 8698609 Chronic pain 15981323 Bilateral referred otalgia of ears 706409581730663 6 Periodonta l ligament strain 392640760 Episodic t ension-type headache 151467697 082057 Arlene Walter, DPT [place] [address] [place] [address] 09/19/2023 18:54:57 09/19/2023 20:16:24 Bilateral referred otalgia of ears 003792791604672 6 Bilateral temporomandibular joint arthritis 723704373675766 03 Chronic pain 05423564 Episodic t ension-type headache 366250764 Myofascial pain 81396881 9 Periodonta l ligament strain 685833717 Sleep related bruxism 27 8969276 Tinnitus 26743620 Health Concerns Section Related Observation LastModified by Organization Detai ls LastModified Time None Recorded Concern Status LastModified by Organization Details LastModified Time None Recorded Advance Directives Directive None Recorded Payers Encounter Date Sequence Insurance Name Policy Number Policy Miranda Covered Member ID Miranda Member ID Guarantor Name 09/10/2023 1 [place] [id number] 1 Bella N Aarre [id number] Bella N Aarre 09/19/2023 1 [place] [id number] 1 Bella N Aarre [id number] Bella N Aarre Notes Date Note Type Note Provider Name and Address Organization Details Recorded Time 09/10/2023 text/html HPI Notes: [facility] HPI for jaw, face, TMD pain Reported by patient. Onset: started 20 year(s) ago; gradual Location: bilateral; masseteric; temporal; ear Quality: aching; sore Severity: pain level 6/10; radiating to the ear (temples, neck) Duration constant Symptom triggers: clenching; bruxism; stress; anxiety Aggravating Factors: stress; anxiety; grinding teeth; clenching the teeth; chewing Alleviating Factors: massage; heat; ice; splint therapy; physical therapy Associated Symptoms: tooth pain; headaches; tinnitus; weakness Prior Tests: CT maxillofacial Prior Treatment: cement despatch operator/oral appliance/splint; physical therapy Prior opinion primary care provider; ENT Patient presents today for evaluation of a possible temporomandibular disorder. These symptoms are chronic and began with no clear triggering events. Previous consultation include evaluation with his/her primary care provider. Symptoms are bilateral and aggravated by clenching and grinding of their teeth. The patient is aware of teeth clenching and grinding. Bella is referred by Dr. Sanders, ENT, for her main concern of ruling out jaw pain in context of her extreme fatigue that she is experiencing for the past 2-3 years. She has done two sleep studies (one PSG and one HST). The most recent within the last month. She did not bring her results, but reports that both were negative for ANDREA. She reports snoring and poor sleep quality after regular hours of sleep. She reports being on the wait list for another PSG at [facility]. She feels generalized muscle tightness down her neck, shoulders and arms to the point she has no strength to chicken picker things - like a gallon of milk. She is trying to mange her symptoms chiropractor visits twice a month, which is somewhat helpful. She has tried PT with dry needling for shoulder pain that has been helpful. She also report a recent goiter diagnosis, with normal thyroid function. Regarding her jaw symptoms, she reports a long history of extreme sleep bruxism for the past 20 years. She tried magnesuium supplementation 250mg qd without effect. She wears a soft maxillary splint for the past two years and reports that it has helped eliminate migraine headaches. She wears it nightly without issues, but is interested in a thicker style splint. She denies TMJ locking, dental occlusal changes, she notes occasional TMJ clicking. She notes generalized dental sensitivity. She denies dental pain, sensitivity to hot/cold and pain does not wake her from sleep. She reports tension-type headache once a week that she manages with ibuprofen 600 mg (bitemporal, pressure, no autonomic symptoms, no aura). She denies history of trauma. BAKARI MANJARREZ DDS,MS [address] [facility] [address], [place], [address], [facility] 09/10/2023 21:49:35 09/19/2023 text/html HPI Notes: Norma covarrubias presents [...] migraines reported by pt - relieved with residential splint use. *Clenching *Bruxism *Stress *Medications: *Stimulant use: caffeine, former smoker *Medical/Surgical Hx: gynecological surgery 2021, GERD, thyroid dysfunction. Goiter. Lateral epicondylitis, back pain. Covid - ? long covid. Denies: numbness, tingling, vision changes, swallowing difficulty. Previous Treatment: chiropractic, PT, dry needling. Pending sleep consult at [facility], pt reports 2 previous studies were negative. Oral splint effective for reducing migraines per pt. Doing scream face, TUTA. Patient Goals include: treat TMD to possibly help with fatigue/tension. Patient Reported Outcome JFLS-8 (out of 80): 09/18=12 Arlene Watsno DPT [address] [facility] [address], [place], [address], [place] [facility] 09/19/2023 20:19:54 OBGyn Episode No OBEpisode recorded.
--- OUTSIDE RECORDS SUMMARY | 2023-12-20 11:28 | XMS_ITS | Referral Summary ---
Author Organization [facility] Address [address] [place] [address]. [place] [address] Care Team Providers Care Caramel Coloring Operator Name Role Phone Adolfo Chau PA-C Primary Care Pr ovider Allergies Active Allergy Reactions Criticality Noted Date Comments Erythromycin 08/31/2002 Seasonal Allergies 11/16/2013 Medications Medication Sig Dispensed Refills Start Date End Date Status CRANBERRY daily Active UNABLE TO FIND MEDICATION NAME: biocell collagen Active UNABLE TO FIND MEDICATION NAME: fluconauzole Active UNABLE TO FIND MEDICATION NAME: clobetasol ointment Active clotrimazole-betame thasone (LOTRISONE) creamIndications:Ac [place] vaginitis Apply topically 2 times daily 15 [...] T Respiratory Rate 16 04/08/2013 10:19 AM HELPER MARBLE FINISHER Oxygen Saturation 98% 02/09/2016 2:24 PM CDT [...] & 2 ANTIBODY Routine 9 9:03 AM HELPER MARBLE FINISHER Supervision of Other Normal from Last 3 Months or Most Recently Relevant to Health Maintenance Results * (ABNORMAL) Lipid panel reflex to direct LDL (11/16/2013 8:35 AM CDT) Cholesterol 145 <200 mg/dL [facility] Comment: LDL Cholesterol is the primary guide to therapy. The NCEP recommends further evaluation of: patients with cholesterol greater than 200 mg/dL if additional risk factors are present, cholesterol greater than 240 mg/dL, triglycerides greater than 150 mg/dL, or HDL less than 40 mg/dL. Triglycerides 60 0 - 150 mg/dL [facility] HDL Cholesterol 48(L) >50 mg/dL [facility] LDL Cholesterol Calculated 85 0 - 129 mg/dL [facility] Comment: LDL Cholesterol is the primary guide to therapy: LDL-cholesterol goal in high risk patients is <100 mg/dL and in very high risk patients is <70 mg/dL. VLDL-Cholesterol 12 0 - 30 mg/dL [facility] Cholesterol/HDL Ratio 3.0 0.0 - 5.0 [facility] Blood specimen (specimen) 11/16/2013 8:35 AM CDT 11/16/2013 8:40 AM CDT Adolfo Chau PA-C LAB - BL OOD ORDERABLES [facility] [address] [place] [address] * Comprehensive metabolic panel (11/16/2013 8:35 AM CDT) Pathologist [facility] Sodium 141 133 - 144 mmol/L [facility] Potassium 4.0 3.4 - 5.3 mmol/L [facility] Chloride 103 94 - 109 mmol/L [facility] Carbon Dioxide 26 20 - 32 mmol/L [facility] Anion Gap 11 6 - 17 mmol/L [facility] Glucose 84 60 - 99 mg/dL [facility] Urea Nitrogen 15 5 - 24 mg/dL [facility] Creatinine 0.79 0.52 - 1.04 mg/dL [facility] GFR Estimate 82 >60 mL/min/1.7 m2 [facility] GFR Estimate If Black >90 >60 mL/min/1.7 m2 [facility] Calcium 9.0 8.5 - 10.4 mg/dL [facility] Bilirubin Total 0.7 0.2 - 1.3 mg/dL [facility] Albumin 4.2 3.9 - 5.1 g/dL [facility] Protein Total 7.1 6.8 - 8.8 g/dL [facility] Alkaline Phosphatase 40 40 - 150 U/L [facility] ALT 25 0 - 50 U/L [facility] AST 23 0 - 45 U/L [facility] Blood specimen (specimen) 11/16/2013 8:35 AM CDT 11/16/2013 8:40 AM CDT Adolfo Chau PA-C LAB - BL OOD ORDERABLES [facility] [address] [place] [address] * PAP IMAGED THIN LAYER SCREEN (08/02/2011 9:26 AM CDT) PAP TANYA Rogers Report Patient Name: BELLA COFFEY MR#: [id number] Specimen #: [id number] Collected: 08/02/2011 Received: 08/02/2011 Reported: 08/03/2011 14:07 [...] MAXIMILIAN Moise (ASCP) Processed and screened at [facility] CLINICAL HISTORY: Previous normal pap Date of Last Pap: 12/15/09, Papanicolaou Test Limitations: ??Cervical cytology is a screening test with limited sensitivity; regular screening is critical for cancer prevention; Pap tests are primarily effective for the diagnosis/preventi on of squamous cell carcinoma, not adenocarcinomas or other cancers. TESTING LAB LOCATION: [facility] [address] [address] [place], [place] ??[address] COLLECTION SITE: Client: ??[facility] Location: [facility] (R) [facility] Cytologic material (specimen) 08/02/2011 9:26 AM CDT 08/02/2011 2:05 PM CDT Adolfo Chau PA-C LAB - OP TIME CLINICAL SPECIMEN [facility] * HIV 1 & 2, SCREEN (05/03/2009 9:03 AM HELPER MARBLE FINISHER) HIV 1&2 Antibody Negative NEG [facility] 05/03/2009 9:03 AM HELPER MARBLE FINISHER 05/03/2009 9:08 AM HELPER MARBLE FINISHER Earl Issa MD LABORATORY [facility] from Last 3 Months or Most Recently Relevant to Health Maintenance Care Teams Caramel Coloring Operator Relationship Specialty Start Date End Date Adolfo Chau PA-C [address] [place], [place] [phone] PCP - General Family Practice 10/31/10
--- OUTSIDE RECORDS SUMMARY | 2023-12-20 11:28 | XMS_ITS | Encounter Summary ---
Author Organization [facility] Address [address] [place] [address]. [place] [address] Care Team Providers Care Combination Building Inspector Name Role Phone Mari Chau PA-C Primary Care Pr ovider Mari Chau PA-C Unavailable Mari Chau PA-C Unavailable Encounter Details Date Type Department Care Team (Late st Contact Info) Description 10/26/2016 MyC Medical Advice [address] [address] Jess Wild, SOLUTION SPECIALIST Social History Tobacco Use Types Packs/Day Years [...] on filedocumented in this encounter Care Teams Combination Building Inspector Relationship Specialty Start Date End Date Mari Chau PA-C [address] [place] [address] PCP - General Family Practice 10/31/10 Mari Chau PA-C [address] [place] [address] PCP - Assigned PCP 11/05/10 07/08/18 Mari Chau PA-C [address] [place] [address] Assigned PCP 02/07/12 02/14/19 documented as of this encounter
--- OUTSIDE RECORDS SUMMARY | 2023-12-20 11:28 | XMS_ITS | Encounter Summary ---
Author Organization [place] Address [address] [place] [address]. [place] [address] Care Team Providers Care Casino Change Attendant Name Role Phone Steph Venegas MD Primary Care Provid er Mari Chau PA-C Primary Care Pr ovider Mari Chau PA-C Unavailable Mari Chau PA-C Unavailable Encounter Details Date Type Department Care Team (Late st Contact Info) Description 11/04/2009 [facility] Women's [address] [place] [address] Antonio Louis MD NO INFO [...] Primary documented in this encounter Care Teams Casino Change Attendant Relationship Specialty Start Date End Date Steph Venegas MD [address] [place] [address] PCP - General 03/27/04 10/30/10 Mari Chau PA-C [address] [place] [address] PCP - General Family Practice 10/31/10 Mari Chau PA-C [address] [place] [address] PCP - Assigned PCP 11/05/10 07/08/18 Mari Chau PA-C [address] [place] [address] Assigned PCP 02/07/12 02/14/19 documented as of this encounter
--- OUTSIDE RECORDS SUMMARY | 2023-12-20 11:28 | XMS_ITS | Encounter Summary ---
Author Organization [place] Address [address] [place] [address]. [place] [address] Care Team Providers Care Platform Worker Name Role Phone Mari Chau PA-C Primary Care Pr ovider Mari Chau PA-C Unavailable Mari Chau PA-C Unavailable Encounter Details Date Type Department Care Team (Late st Contact Info) Description 03/04/2015 [facility] Medical Advice [address] [phone] Jess Wild, EDUCATIONAL SPEECH LANGUAGE CLINICIAN Social History Tobacco Use Types Packs/Day Years [...] on filedocumented in this encounter Care Teams Platform Worker Relationship Specialty Start Date End Date Mari Chau PA-C [address] [place] [address] PCP - General Family Practice 10/31/10 Mari Chau PA-C [address] [place] [address] PCP - Assigned PCP 11/05/10 07/08/18 Mari Chau PA-C [address] [place] [address] Assigned PCP 02/07/12 02/14/19 documented as of this encounter
--- OUTSIDE RECORDS SUMMARY | 2023-12-20 11:28 | XMS_ITS | Encounter Summary ---
Author Organization [place] Address [address] [place] [address]. [place] [address] Care Team Providers Care Leather Goods Maker Name Role Phone Mari Chau PA-C Primary Care Pr ovider Mari Chau PA-C Unavailable Mari Chau PA-C Unavailable Reason for Visit * Reason Onset Date Comments Referral 12/12/2012 Encounter Details Date Type Department Care Team (Late st Contact Info) Description 12/12/2012 Telephone [facility] [id number] [place] [phone] Mari Chau PA-C [id number] [place] [address] Referral Social History Tobacco Use Types [...] for this clinic and gave info for [place]. If she needs a referral Mari [...] phone number to reach pt at is: [phone] Ok to leave a message with medical info? yes Pharmacy Information:none Sylvie Tsai, Reject Opener And Filler documented in this encounter Plan of Treatment Not on file documented as of this encounter Visit Diagnoses Not on filedocumented in this encounter Care Teams Leather Goods Maker Relationship Specialty Start Date End Date Mari Chau PA-C [address] [place] [address] PCP - General Family Practice 10/31/10 Mari Chau PA-C [address] [place] [address] PCP - Assigned PCP 11/05/10 07/08/18 Mari Chau PA-C [address] [place] [address] Assigned PCP 02/07/12 02/14/19 documented as of this encounter
--- OUTSIDE RECORDS SUMMARY | 2023-12-20 11:28 | XMS_ITS | Encounter Summary ---
Author Organization [place] Address [address] [place] [address]. [place] [address] Care Team Providers Care Minister Of Religion Name Role Phone Mari Chau PA-C Primary Care Pr ovider Mari Chau PA-C Unavailable Mari Chau PA-C Unavailable Reason for Visit * Reason Onset Date Comments MyChart Communication 02/16/2016 Encounter Details Date Type Department Care Team (Latest Contact Info) Description 02/16/2016 MyC Medical Advice [facility] [id number] [place] [phone] Mari Chau PA-C [id number] [place] [address] MyChart Communication Social History Tobacco Use [...] on filedocumented in this encounter Care Teams Minister Of Religion Relationship Specialty Start Date End Date Mari Chau PA-C [address] [place] [address] PCP - General Family Practice 10/31/10 Mari Chau PA-C [address] [place] [address] PCP - Assigned PCP 11/05/10 07/08/18 Mari Chau PA-C [address] [place] [address] Assigned PCP 02/07/12 02/14/19 documented as of this encounter
--- OUTSIDE RECORDS SUMMARY | 2023-12-20 11:28 | XMS_ITS | Encounter Summary ---
Author Organization [place] Address [address] [place] [address]. [place] [address] Care Team Providers Care Paste Mixing Supervisor Name Role Phone Mari Chau PA-C Primary Care Pr ovider Mari Chau PA-C Unavailable Mari Chau PA-C Unavailable Encounter Details Date Type Department Care Team (Late st Contact Info) Description 05/17/2015 MyC Medical Advice [address] [phone] Jess Wild, COPY CENTER OPERATOR Social History Tobacco Use Types Packs/Day [...] on filedocumented in this encounter Care Teams Paste Mixing Supervisor Relationship Specialty Start Date End Date Mari Chau PA-C [address] [place] [address] PCP - General Family Practice 10/31/10 Mari Chau PA-C [address] [place] [address] PCP - Assigned PCP 11/05/10 07/08/18 Mari Chau PA-C [address] [place] [address] Assigned PCP 02/07/12 02/14/19 documented as of this encounter
--- OUTSIDE RECORDS SUMMARY | 2023-12-20 11:28 | XMS_ITS | Encounter Summary ---
Author Organization [place] Address [address] [place] [address]. [place] [address] Care Team Providers Care Forensic Toxicologist Name Role Phone Mari Chau PA-C Primary Care Pr ovider Mari Chau PA-C Unavailable Mari Chau PA-C Unavailable Encounter Details Date Type Department Care Team (Late st Contact Info) Description 06/24/2014 MyC Medical Advice [address] [phone] Tamiko Llamas, DO [address] [facility] [address] [place] [address] Fatigue (Primary Dx) Social History [...] fatigue documented in this encounter Care Teams Forensic Toxicologist Relationship Specialty Start Date End Date Mari Chau PA-C [address] [place] [address] PCP - General Family Practice 10/31/10 Mari Chau PA-C [address] [place] [address] PCP - Assigned PCP 11/05/10 07/08/18 Mari Chau PA-C [address] [place] [address] Assigned PCP 02/07/12 02/14/19 documented as of this encounter
--- OUTSIDE RECORDS SUMMARY | 2023-12-20 11:28 | XMS_ITS | Encounter Summary ---
Author Organization [place] Address [address] [place] [address]. [place] [address] Care Team Providers Care Director Marketing Name Role Phone Mari Chau PA-C Primary Care Pr ovider Mari Chau PA-C Unavailable Mari Chau PA-C Unavailable Encounter Details Date Type Department Care Team (Late st Contact Info) Description 06/14/2014 MyC Medical Advice [address] [phone] Tamiko Llamas, DO [address] [facility] [address] [place] [address] Social History Tobacco Use Types [...] on filedocumented in this encounter Care Teams Director Marketing Relationship Specialty Start Date End Date Mari Chau PA-C [address] [place] [address] PCP - General Family Practice 10/31/10 Mari Chau PA-C [address] [place] [address] PCP - Assigned PCP 11/05/10 07/08/18 Mari Chau PA-C [address] [place] [address] Assigned PCP 02/07/12 02/14/19 documented as of this encounter
--- OUTSIDE RECORDS SUMMARY | 2023-12-20 11:28 | XMS_ITS | Encounter Summary ---
Author Organization [place] Address [address] [place] [address]. [place] [address] Care Team Providers Care Product Designer Name Role Phone Mari Chau PA-C Primary Care Pr ovider Mari Chau PA-C Unavailable Mari Chau PA-C Unavailable Reason for Visit * Reason Onset Date Comments MyChart Communication 02/15/2016 Encounter Details Date Type Department Care Team (Latest Contact Info) Description 02/15/2016 [facility] [place] [facility] [id number] [place] [phone] Mari Chau PA-C [id number] [place] [address] MyChart Communication Social History Tobacco Use [...] on filedocumented in this encounter Care Teams Product Designer Relationship Specialty Start Date End Date Mari Chau PA-C [address] [place] [address] PCP - General Family Practice 10/31/10 Mari Chau PA-C [address] [place] [address] PCP - Assigned PCP 11/05/10 07/08/18 Mari Chau PA-C [address] [place] [address] Assigned PCP 02/07/12 02/14/19 documented as of this encounter
--- OUTSIDE RECORDS SUMMARY | 2023-12-20 11:28 | XMS_ITS | Clinical Summary ---
Author Organization [place] Address [address] [place] [address]. [place] [address] Care Team Providers Care Print Room Worker Name Role Phone Adolfo Chau PA-C Primary Care Pr ovider Allergies Active Allergy Reactions Criticality Noted Date Comments Erythromycin 08/31/2002 Seasonal Allergies 11/16/2013 Medications Medication Sig Dispensed Refills Start Date End Date Status CRANBERRY daily Active UNABLE TO FIND MEDICATION NAME: biocell collagen Active UNABLE TO FIND MEDICATION NAME: fluconauzole Active UNABLE TO FIND MEDICATION NAME: clobetasol ointment Active clotrimazole-betame thasone (LOTRISONE) creamIndications:Ac tangirnaq vaginitis Apply topically 2 times daily 15 [...] T Respiratory Rate 16 04/08/2013 10:19 AM CASHIER CREDIT Oxygen Saturation 98% 02/09/2016 2:24 PM CDT [...] 1 & 2 ANTIBODY Routine 9:03 AM CASHIER CREDIT Supervision of Other Normal from Last 3 Months or Most Recently Relevant to Health Maintenance Results * (ABNORMAL) Lipid panel reflex to direct LDL (11/16/2013 8:35 AM CDT) Cholesterol 145 <200 mg/dL [facility] Comment: LDL Cholesterol is the primary guide to therapy. The NCEP recommends further evaluation of: patients with cholesterol greater than 200 mg/dL if additional risk factors are present, cholesterol greater than 240 mg/dL, triglycerides greater than 150 mg/dL, or HDL less than 40 mg/dL. Triglycerides 60 0 - 150 mg/dL [facility] HDL Cholesterol 48(L) >50 mg/dL [facility] LDL Cholesterol Calculated 85 0 - 129 mg/dL [facility] Comment: LDL Cholesterol is the primary guide to therapy: LDL-cholesterol goal in high risk patients is <100 mg/dL and in very high risk patients is <70 mg/dL. VLDL-Cholesterol 12 0 - 30 mg/dL [facility] Cholesterol/HDL Ratio 3.0 0.0 - 5.0 [facility] Blood specimen (specimen) 11/16/2013 8:35 AM CDT 11/16/2013 8:40 AM CDT Adolfo Chau PA-C LAB - BL OOD ORDERABLES [facility] [address] [place] [address] * Comprehensive metabolic panel (11/16/2013 8:35 AM CDT) Sodium 141 133 - 144 mmol/L [facility] Potassium 4.0 3.4 - 5.3 mmol/L [facility] Chloride 103 94 - 109 mmol/L [facility] Carbon Dioxide 26 20 - 32 mmol/L [facility] Anion Gap 11 6 - 17 mmol/L [facility] Glucose 84 60 - 99 mg/dL [facility] Urea Nitrogen 15 5 - 24 mg/dL [facility] Creatinine 0.79 0.52 - 1.04 mg/dL [facility] GFR Estimate 82 >60 mL/min/1.7 m2 [facility] GFR Estimate If Black >90 >60 mL/min/1.7 m2 [facility] Calcium 9.0 8.5 - 10.4 mg/dL [facility] Bilirubin Total 0.7 0.2 - 1.3 mg/dL [facility] Albumin 4.2 3.9 - 5.1 g/dL [facility] Protein Total 7.1 6.8 - 8.8 g/dL [facility] Alkaline Phosphatase 40 40 - 150 U/L [facility] ALT 25 0 - 50 U/L [facility] AST 23 0 - 45 U/L [facility] Blood specimen (specimen) 11/16/2013 8:35 AM CDT 11/16/2013 8:40 AM CDT Adolfo Chau PA-C LAB - BL OOD ORDERABLES [facility] [address] [place] [address] * PAP IMAGED THIN LAYER SCREEN (08/02/2011 9:26 AM CDT) PAP NIL EDITH Rogers Report Patient Name: BELLA COFFEY MR#: [id number] Specimen #: [id number] Collected: 08/02/2011 Received: 08/02/2011 Reported: 08/03/2011 14:07 [...] MAXIMILIAN Moise (ASCP) Processed and screened at [facility], [facility] CLINICAL HISTORY: Previous normal pap Date of Last Pap: 12/15/09, Papanicolaou Test Limitations: ??Cervical cytology is a screening test with limited sensitivity; regular screening is critical for cancer prevention; Pap tests are primarily effective for the diagnosis/preventi on of squamous cell carcinoma, not adenocarcinomas or other cancers. TESTING LAB LOCATION: [address] ??[address] COLLECTION SITE: Client: ??[facility] Location: [facility] (R) COPATH Cytologic material (specimen) 08/02/2011 9:26 AM CDT 08/02/2011 2:05 PM CDT Adolfo Chau PA-C LAB - OP TIME CLINICAL SPECIMEN COP[facility] * HIV 1 & 2, SCREEN (05/03/2009 9:03 AM CASHIER CREDIT) HIV 1&2 Antibody Negative NEG [facility] 05/03/2009 9:03 AM CASHIER CREDIT 05/03/2009 9:08 AM CASHIER CREDIT Earl Issa MD LABORATORY [facility] from Last 3 Months or Most Recently Relevant to Health Maintenance Care Teams Print Room Worker Relationship Specialty Start Date End Date Adolfo Chau PA-C [address] [place] [address] PCP - General Family Practice 10/31/10
== END 2023-12-19 08:59 | disposition home or self-care (01) ==
LOC: NFLDREF 12-20 11:25
PROVIDERS: PCP Emergency Medicine; Referring Provider Emergency Medicine; Visit Provider Emergency Medicine
DX: R53.82 Chronic fatigue, unspecified (principal)
CPT/HCPCS: 80053; 82607

== ENCOUNTER 2023-12-30 09:54 | Outpatient (CLI) | payer BC, SELFPAY ==
--- OUTSIDE RECORDS SUMMARY | 2023-12-30 09:58 | XMS_ITS | Encounter Summary ---
Author Organization [place] Address [address] [place] [address]. [place] [address] Care Team Providers Care Edging Machine Catcher Name Role Phone Mari Chau PA-C Primary Care Pr ovider Mari Chau PA-C Unavailable Mari Chau PA-C Unavailable Reason for Visit * Reason Onset Date Comments Outreach 01/09/2017 phs att 1 Encounter Details Date Type Department Care Team (Late st Contact Info) Description 01/09/[address] [facility] [place] [address] [place] [address] Mari Chau PA-C [address] [place] [address] Outreach (phs att 1) Social [...] Attempt 1 Message on voicemail Comments: Outreach Order Dispatcher Chief AT documented in this encounter Plan of Treatment Not on file documented as of this encounter Visit Diagnoses Not on filedocumented in this encounter Care Teams Edging Machine Catcher Relationship Specialty Start Date End Date Mari Chau PA-C [address] [place] [address] PCP - General Family Practice 10/31/10 Mari Chau PA-C [address] [place] [address] PCP - Assigned PCP 11/05/10 07/08/18 Mari Chau PA-C [address] [place] [address] Assigned PCP 02/07/12 02/14/19 documented as of this encounter
--- OUTSIDE RECORDS SUMMARY | 2023-12-30 09:58 | XMS_ITS | Encounter Summary ---
Author Organization [place] Address [address] [place] [address]. [place] [address] Care Team Providers Care Molding Machine Setter Name Role Phone Mari Chau PA-C Primary Care Pr ovider Mari Chau PA-C Unavailable Mari Chau PA-C Unavailable Encounter Details Date Type Department Care Team (Late st Contact Info) Description 10/26/2016 MyC Medical Advice [address] [phone] Jess Wild, COST RECOVERY TECHNICIAN Social History Tobacco Use Types Packs/Day Years [...] on filedocumented in this encounter Care Teams Molding Machine Setter Relationship Specialty Start Date End Date Mari Chau PA-C [address] [place] [address] PCP - General Family Practice 10/31/10 Mari Chau PA-C [address] [place] [address] PCP - Assigned PCP 11/05/10 07/08/18 Mari Chau PA-C [address] [place] [address] Assigned PCP 02/07/12 02/14/19 documented as of this encounter
--- OUTSIDE RECORDS SUMMARY | 2023-12-30 09:58 | XMS_ITS | Referral Summary ---
Author Organization [place] Address [address] [place] [address]. [place] [address] Care Team Providers Care Coat Joiner Lockstitch Name Role Phone Adolfo Chau PA-C Primary Care Pr ovider Allergies Active Allergy Reactions Criticality Noted Date Comments Erythromycin 08/31/2002 Seasonal Allergies 11/16/2013 Medications Medication Sig Dispensed Refills Start Date End Date Status CRANBERRY daily Active UNABLE TO FIND MEDICATION NAME: biocell collagen Active UNABLE TO FIND MEDICATION NAME: fluconauzole Active UNABLE TO FIND MEDICATION NAME: clobetasol ointment Active clotrimazole-betame thasone (LOTRISONE) creamIndications:Ac little traverse vaginitis Apply topically 2 times daily 15 [...] T Respiratory Rate 16 04/08/2013 10:19 AM ART SALES CONSULTANT Oxygen Saturation 98% 02/09/2016 2:24 PM CDT [...] & 2 ANTIBODY Routine 9 9:03 AM ART SALES CONSULTANT Supervision of Other Normal from Last 3 Months or Most Recently Relevant to Health Maintenance Results * (ABNORMAL) Lipid panel reflex to direct LDL (11/16/2013 8:35 AM CDT) Cholesterol 145 <200 mg/dL [facility] Comment: LDL Cholesterol is the primary guide to therapy. The NCEP recommends further evaluation of: patients with cholesterol greater than 200 mg/dL if additional risk factors are present, cholesterol greater than 240 mg/dL, triglycerides greater than 150 mg/dL, or HDL less than 40 mg/dL. Triglycerides 60 0 - 150 mg/dL [facility] HDL Cholesterol 48(L) >50 mg/dL [facility] LDL Cholesterol Calculated 85 0 - 129 mg/dL [facility] Comment: LDL Cholesterol is the primary guide to therapy: LDL-cholesterol goal in high risk patients is <100 mg/dL and in very high risk patients is <70 mg/dL. VLDL-Cholesterol 12 0 - 30 mg/dL [facility] Cholesterol/HDL Ratio 3.0 0.0 - 5.0 [facility] Blood specimen (specimen) 11/16/2013 8:35 AM CDT 11/16/2013 8:40 AM CDT Adolfo Chau PA-C LAB - BL OOD ORDERABLES [facility] [address] [place] [address] * Comprehensive metabolic panel (11/16/2013 8:35 AM CDT) Pathologist [facility] Sodium 141 133 - 144 mmol/L [facility] Potassium 4.0 3.4 - 5.3 mmol/L [facility] Chloride 103 94 - 109 mmol/L [facility] Carbon Dioxide 26 20 - 32 mmol/L [facility] Anion Gap 11 6 - 17 mmol/L [facility] Glucose 84 60 - 99 mg/dL [facility] Urea Nitrogen 15 5 - 24 mg/dL [facility] Creatinine 0.79 0.52 - 1.04 mg/dL [facility] GFR Estimate 82 >60 mL/min/1.7 m2 [facility] GFR Estimate If Black >90 >60 mL/min/1.7 m2 [facility] Calcium 9.0 8.5 - 10.4 mg/dL [facility] Bilirubin Total 0.7 0.2 - 1.3 mg/dL [facility] Albumin 4.2 3.9 - 5.1 g/dL [facility] Protein Total 7.1 6.8 - 8.8 g/dL [facility] Alkaline Phosphatase 40 40 - 150 U/L [facility] ALT 25 0 - 50 U/L [facility] AST 23 0 - 45 U/L [facility] Blood specimen (specimen) 11/16/2013 8:35 AM CDT 11/16/2013 8:40 AM CDT Adolfo Chau PA-C LAB - BL OOD ORDERABLES [facility] [address] [place] [address] * PAP IMAGED THIN LAYER SCREEN (08/02/2011 9:26 AM CDT) PAP TANYA Rogers Report Patient Name: BELLA COFFEY MR#: [id number] Specimen #: [id number] Collected: 08/02/2011 Received: 08/02/2011 Reported: 08/03/2011 14:07 [...] MAXIMILIAN Moise (ASCP) Processed and screened at [facility], [facility] CLINICAL HISTORY: Previous normal pap Date of Last Pap: 12/15/09, Papanicolaou Test Limitations: ??Cervical cytology is a screening test with limited sensitivity; regular screening is critical for cancer prevention; Pap tests are primarily effective for the diagnosis/preventi on of squamous cell carcinoma, not adenocarcinomas or other cancers. TESTING LAB LOCATION: [facility] [address] [address] [place], [place] ??[address] COLLECTION SITE: Client: ??[facility] Location: [facility] (R) COPATH Cytologic material (specimen) 08/02/2011 9:26 AM CDT 08/02/2011 2:05 PM CDT Adolfo Chau PA-C LAB - OP TIME CLINICAL SPECIMEN [facility] * HIV 1 & 2, SCREEN (05/03/2009 9:03 AM ART SALES CONSULTANT) HIV 1&2 Antibody Negative NEG [facility] 05/03/2009 9:03 AM ART SALES CONSULTANT 05/03/2009 9:08 AM ART SALES CONSULTANT Earl Issa MD LABORATORY [facility] from Last 3 Months or Most Recently Relevant to Health Maintenance Care Teams Coat Joiner Lockstitch Relationship Specialty Start Date End Date Adolfo Chau PA-C [address] [place], [place] [id number] PCP - General Family Practice 10/31/10
--- OUTSIDE RECORDS SUMMARY | 2023-12-30 09:58 | XMS_ITS | Encounter Summary ---
Author Organization [place] Address [address] [place] [address]. [place] [address] Care Team Providers Care Railroad Baggage Porter Name Role Phone Mari Chau PA-C Primary Care Pr ovider Mari Chau PA-C Unavailable Mari Chau PA-C Unavailable Reason for Visit * Reason Onset Date Comments MyChart Communication 02/15/2016 Encounter Details Date Type Department Care Team (Latest Contact Info) Description 02/15/2016 [facility] Medical Advice [facility] [id number] [place] [phone] Mari Chau PA-C [id number] [place] [address] MyChart Communication Social History Tobacco Use [...] on filedocumented in this encounter Care Teams Railroad Baggage Porter Relationship Specialty Start Date End Date Mari Chau PA-C [address] [place] [address] PCP - General Family Practice 10/31/10 Mari Chau PA-C [address] [place] [address] PCP - Assigned PCP 11/05/10 07/08/18 Mari Chau PA-C [address] [place] [address] Assigned PCP 02/07/12 02/14/19 documented as of this encounter
--- OUTSIDE RECORDS SUMMARY | 2023-12-30 09:58 | XMS_ITS | Clinical Summary ---
Author Organization [place] Address [address] [place] [address]. [place] [address] Care Team Providers Care Brake Lining Driller Name Role Phone Adolfo Chau PA-C Primary Care Pr ovider Allergies Active Allergy Reactions Criticality Noted Date Comments Erythromycin 08/31/2002 Seasonal Allergies 11/16/2013 Medications Medication Sig Dispensed Refills Start Date End Date Status CRANBERRY daily Active UNABLE TO FIND MEDICATION NAME: biocell collagen Active UNABLE TO FIND MEDICATION NAME: fluconauzole Active UNABLE TO FIND MEDICATION NAME: clobetasol ointment Active clotrimazole-betame thasone (LOTRISONE) creamIndications:Ac [place] vaginitis Apply topically 2 times daily 15 [...] T Respiratory Rate 16 04/08/2013 10:19 AM ANGIOGRAPHER Oxygen Saturation 98% 02/09/2016 2:24 PM CDT [...] 1 & 2 ANTIBODY Routine 9:03 AM ANGIOGRAPHER Supervision of Other Normal from Last 3 Months or Most Recently Relevant to Health Maintenance Results * (ABNORMAL) Lipid panel reflex to direct LDL (11/16/2013 8:35 AM CDT) Cholesterol 145 <200 mg/dL [facility] Comment: LDL Cholesterol is the primary guide to therapy. The NCEP recommends further evaluation of: patients with cholesterol greater than 200 mg/dL if additional risk factors are present, cholesterol greater than 240 mg/dL, triglycerides greater than 150 mg/dL, or HDL less than 40 mg/dL. Triglycerides 60 0 - 150 mg/dL [facility] HDL Cholesterol 48(L) >50 mg/dL [facility] LDL Cholesterol Calculated 85 0 - 129 mg/dL [facility] Comment: LDL Cholesterol is the primary guide to therapy: LDL-cholesterol goal in high risk patients is <100 mg/dL and in very high risk patients is <70 mg/dL. VLDL-Cholesterol 12 0 - 30 mg/dL [facility] Cholesterol/HDL Ratio 3.0 0.0 - 5.0 [facility] Blood specimen (specimen) 11/16/2013 8:35 AM CDT 11/16/2013 8:40 AM CDT Adolfo Chau PA-C LAB - BL OOD ORDERABLES [facility] [address] [place] [address] * Comprehensive metabolic panel (11/16/2013 8:35 AM CDT) Sodium 141 133 - 144 mmol/L [facility] Potassium 4.0 3.4 - 5.3 mmol/L [facility] Chloride 103 94 - 109 mmol/L [facility] Carbon Dioxide 26 20 - 32 mmol/L [facility] Anion Gap 11 6 - 17 mmol/L [facility] Glucose 84 60 - 99 mg/dL [facility] Urea Nitrogen 15 5 - 24 mg/dL [facility] Creatinine 0.79 0.52 - 1.04 mg/dL [facility] GFR Estimate 82 >60 mL/min/1.7 m2 [facility] GFR Estimate If Black >90 >60 mL/min/1.7 m2 [facility] Calcium 9.0 8.5 - 10.4 mg/dL [facility] Bilirubin Total 0.7 0.2 - 1.3 mg/dL [facility] Albumin 4.2 3.9 - 5.1 g/dL [facility] Protein Total 7.1 6.8 - 8.8 g/dL [facility] Alkaline Phosphatase 40 40 - 150 U/L [facility] ALT 25 0 - 50 U/L [facility] AST 23 0 - 45 U/L [facility] Blood specimen (specimen) 11/16/2013 8:35 AM CDT 11/16/2013 8:40 AM CDT Adolfo Chau PA-C LAB - BL OOD ORDERABLES [facility] [address] [place] [address] * PAP IMAGED THIN LAYER SCREEN (08/02/2011 9:26 AM CDT) PAP TANYA Rogers Report Patient Name: BELLA COFFEY MR#: [id number] Specimen #: [id number] Collected: 08/02/2011 Received: 08/02/2011 Reported: 08/03/2011 14:07 [...] Lesion or Malignancy Electronically signed out by: MAXMIILIAN Moise (ASCP) Processed and screened at [facility] CLINICAL HISTORY: Previous normal pap Date of Last Pap: 12/15/09, Papanicolaou Test Limitations: ??Cervical cytology is a screening test with limited sensitivity; regular screening is critical for cancer prevention; Pap tests are primarily effective for the diagnosis/preventi on of squamous cell carcinoma, not adenocarcinomas or other cancers. TESTING LAB LOCATION: [address] ??[address] COLLECTION SITE: Client: ??[facility] Location: [facility] (R) [facility] Cytologic material (specimen) 08/02/2011 9:26 AM CDT 08/02/2011 2:05 PM CDT Adolfo Chau PA-C LAB - OP TIME CLINICAL SPECIMEN COPATH * HIV 1 & 2, SCREEN (05/03/2009 9:03 AM ANGIOGRAPHER) HIV 1&2 Antibody Negative NEG [facility] 05/03/2009 9:03 AM ANGIOGRAPHER 05/03/2009 9:08 AM ANGIOGRAPHER Earl Issa MD LABORATORY [facility] from Last 3 Months or Most Recently Relevant to Health Maintenance Care Teams Brake Lining Driller Relationship Specialty Start Date End Date Adolfo Chau PA-C [address] [place] [address] PCP - General Family Practice 10/31/10
--- OUTSIDE RECORDS SUMMARY | 2023-12-30 09:58 | XMS_ITS | Encounter Summary ---
Author Organization [facility] Address [address] [place] [address]. [place] [address] Care Team Providers Care Chief Safety Officer Name Role Phone Mari Chau PA-C Primary Care Pr ovider Mari Chau PA-C Unavailable Mari Chau PA-C Unavailable Encounter Details Date Type Department Care Team (Late st Contact Info) Description 05/21/2016 MyC Medical Advice [address] [address] Jess Wild, POSTAL MAIL CARRIER Social History Tobacco Use Types Packs/Day Years [...] on filedocumented in this encounter Care Teams Chief Safety Officer Relationship Specialty Start Date End Date Mari Chau PA-C [address] [place] [address] PCP - General Family Practice 10/31/10 Mari Chau PA-C [address] [place] [address] PCP - Assigned PCP 11/05/10 07/08/18 Mari Chau PA-C [address] [place] [address] Assigned PCP 02/07/12 02/14/19 documented as of this encounter
--- OUTSIDE RECORDS SUMMARY | 2023-12-30 09:58 | XMS_ITS | Encounter Summary ---
Author Organization [facility] Address [address] [place] [address]. [place] [address] Care Team Providers Care Rn Concurrent Review Name Role Phone Mari Chau PA-C Primary Care Pr ovider Mari Chau PA-C Unavailable Mari Chau PA-C Unavailable Reason for Visit * Reason Onset Date Comments MyChart Communication 02/16/2016 Encounter Details Date Type Department Care Team (Latest Contact Info) Description 02/16/2016 MyC Medical Advice [facility] [address] [place] [address] Mari Chau PA-C [id number] [place] [address] MyChart Communication Social History Tobacco Use [...] on filedocumented in this encounter Care Teams Rn Concurrent Review Relationship Specialty Start Date End Date Mari Chau PA-C [address] [place] [address] PCP - General Family Practice 10/31/10 Mari Chau PA-C [address] [place] [address] PCP - Assigned PCP 11/05/10 07/08/18 Mair Chau PA-C [address] [place] [address] Assigned PCP 02/07/12 02/14/19 documented as of this encounter
--- OUTSIDE RECORDS SUMMARY | 2023-12-30 09:59 | XMS_ITS | Data Portability ---
Author Organization [place] [facility] Address [address] [place] [address] Care Team Providers Care Front Office Agent Name Role Phone JUAN YADIRA Primary Care Provider [phone] CHAIM JAMES Referring Provider Assessment Encounter Date [...] Prevention Program and work with a health assistant women's tennis coach to help her integrate self management [...] Arlene Watson PT, [address] [facility], [place], [address], 4 21:49:32 Procedures None recorded. Surgeries None recorded. Imaging None recorded. Medication Orders None recorded. 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 Not available 09/10/2023 21:48:19 09/19/2023 [id number] Total treatment time minutes today = 45 [...] stabil izatio n applia nce Not Available [place] [address], [place], [address], 09/09/2023 09:20:56 Result Notes None recorded. Problems Name Status Onset Date Resolution Date Notes Provider Name and Address Organization Details Recorded Time Bilateral temporomandibular joint arthritis Active 2023 Bilateral TMJ arthralgia BAKARI Carty DDS,MS [address], [place], [address], [facility] 13:54:17 Myofascial pain Active 2023 masticatory and cervical BAKARI Carty DDS,MS [address] [facility] [address], [place], [address], [facility] 4 13:54:24 Sleep related bruxism Active 2023 BAKARI NASCIMENT CANDELARIA CartyS,MS [address], [place], [address], [facility] 4 13:38:36 Chronic pain Active 2023 BAKARI NASCKRIS Carty DDS,MS [address], [place], [address], [facility] 4 13:38:43 Bilateral referred otalgia of ears Active 2023 BAKARI NASCKRIS Carty DDS,MS [address], [place], [address], [facility] 4 13:53:40 Periodontal ligament strain Active 2023 BAKARI NASCKRIS Carty DDS,MS [address], [place], [address], [facility] 4 13:54:39 Episodic tension-type headache Active 2023 BAKARI NASCKRIS Carty DDS,MS [address], [place], [address], [facility] 4 13:58:30 Tinnitus Active 2023 Arlene Watson DPT [address] [facility] [address], [place], [address], [facility] 4 12:20:39 Problem Notes None recorded. Procedures Surgical History Date Name Laterality Status Provider Name and Address Organization Details Recorded Time 4 94327 - PT Eval High Complexity completed Arlene Watson DPT [address], [place], [address], [facility] 09/19/2023 12:19:52 4 [address]: Self Care/Home Management Training completed Arlene Watson, KELLYT [address] [facility] [address], [place], [address], [facility] 09/19/2023 20:14:50 4 [address]: Therapeutic Exercise completed KELLY FlynnT [address] [facility] [address], [place], [address], [facility] 09/19/2023 20:13:51 4 [address]: Manual Therapy completed KELLY FlynnT [address] [facility] [address], [place], [address], [facility] 09/19/2023 20:13:58 2 Vault Teller Surgery completed Barbara chavez [facility] 09/10/2023 10:56:28 Imaging Results None recorded. Procedure [...] Updated DateTime 09/10/2023 160.02 cm 30.5 kg/m2 35219.89 g 107 mm[Hg] 72 mm[Hg] Barbara Freed [facility] 4 10:59:04 Social History Question Answer Notes LastModified by Organizat ion Details LastModified Time Tobacco Smoking Status Former Smoker Barbara chavez [facility] 09/10/2023 10:56:37 What Is Your Level Of Alcohol Consumption? None Information not available 09/10/2023 What Is Your Level Of Caffeine Consumption? Occasional Information not available 09/10/2023 Are You Currently Employed? Yes [email or web address] Information not available 09/10/2023 What Type Of Diet Are You Following? [employer] , Under 2000 Calories A Day Protien , Fiber [email or web address] Information not available 09/10/2023 Do You Reside In Or Have You Traveled To An Area Where Ebola Virus Transmission Is Active? No [email or web address] Information not available 09/10/2023 What Is The Highest Grade Or Level Of School You Have Completed Or The Highest Degree You Have Received? 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 (0=no Pain, 10=pain As Bad As You Can Imagine) 9 Information not available 09/10/2023 What Number Best Describes How, During The Past Week, Pain Has Interfered With Your Enjoyment Of Life? (0=does Not Interfere, 10= Completely Interferes) 5 [email or web address] Information not available 09/10/2023 What Number Best Describes How, During The Past Week, Pain Has Interfered With Your General Activity? (0=does Not Interfere, 10=completely Interferes) 9 [email or web address] Information not available 09/10/2023 How Did Primary Problem Begin? 20+ Years Ago, I Was Getting The Worst Headaches/zeyad niranjan. Than My Dentist Saw Grinding Patterns On My Teeth. I Have Been Wearing A Mouthguard At Night Since Information not available 09/10/2023 How Many Children Do You Have? 2 [email or web address] Information not available 09/10/2023 What Is Your Relationship Status? [email or web address] Information not available 09/10/2023 Do You Feel Stressed (tense, Restless, Nervous, Or Anxious, Or Unable To Sleep At Night)? [id number] [email or web address] Information not available 09/10/2023 Do You Use Any Illicit Or Recreational Drugs? No Information not available 09/10/2023 Sex: Unknown Functional Status Question Answer Note LastModified by Organization D etails LastModified Time What is your exercise level? Moderate [email or web address] Information not available 09/10/2023 Mental Status None [...] Encounter Closed Date Diagnosis/Indication Diagnosis SNOMED-CT Code [id number] BAKARI MANJARREZ DDS,MS [place] [address] [place] [address] 09/10/2023 10:43:07 09/10/2023 12:20:54 Myofascial pain 279815032 Bilateral temporomandibular joint arthritis 009325634542127 03 Sleep related bruxism 27 5668770 Chronic pain 80946193 Bilateral referred otalgia of ears 898301753120981 6 Periodonta l ligament strain 764148007 Episodic t ension-type headache 069434913 [id number] Arlene Walter, DPT [place] [address] [place] [address] 09/19/2023 18:54:57 09/19/2023 20:16:24 Bilateral referred otalgia of ears 736581969362152 6 Bilateral temporomandibular joint arthritis 989689838040686 03 Chronic pain 18817605 Episodic t ension-type headache 750054772 Myofascial pain 57680945 9 Periodonta l ligament strain 687080803 Sleep related bruxism 27 0141160 Tinnitus 36532254 Health Concerns Section Related Observation LastModified by Organization Detai ls LastModified Time None Recorded Concern Status LastModified by Organization Details LastModified Time None Recorded Advance Directives Directive None Recorded Payers Encounter Date Sequence Insurance Name Policy Number Policy Miranda Covered Member ID Miranda Member ID Guarantor Name 09/10/2023 1 [place] [id number] 1 Bella N Aarre [id number] Bella N Aarre 09/19/2023 1 [place] [id number] 1 Bella N Aarre [id number] Bella N Aarre Notes Date Note Type Note Provider Name and Address Organization Details Recorded Time 09/10/2023 text/html HPI Notes: [facility] HPI for jaw, face, TMD pain [...] weakness Prior Tests: CT maxillofacial Prior Treatment: quail farmer/oral appliance/splint; physical therapy Prior opinion primary care [...] the wait list for another PSG at [facility]. 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 [...] history of trauma. BAKARI MANJARREZ DDS,MS [address] [facility] [address], [place], [address], [facility] 09/10/2023 21:49:35 [...] migraines reported by pt - relieved with [facility] splint use. *Clenching *Bruxism *Stress *Medications: *Stimulant use: caffeine, former smoker *Medical/Surgical Hx: gynecological surgery 2021, GERD, thyroid dysfunction. Goiter. Lateral epicondylitis, back pain. Covid - ? long covid. Denies: numbness, tingling, vision changes, swallowing difficulty. Previous Treatment: chiropractic, PT, dry needling. Pending sleep consult at [place], pt reports 2 previous studies were negative. Oral splint effective for reducing migraines per pt. Doing scream face, TUTA. Patient Goals include: treat TMD to possibly help with fatigue/tension. Patient Reported Outcome [id number] (out of 80): 09/18=12 Arlene Watson DPT [address] [facility] [address], [place], [address], [place] [facility] 09/19/2023 20:19:54 OBGyn Episode No OBEpisode recorded.
--- OUTSIDE RECORDS SUMMARY | 2023-12-30 09:59 | XMS_ITS | Encounter Summary ---
Author Organization [facility] Address [address] [place] [address]. [place] [address] Care Team Providers Care Digital Media Planner Name Role Phone Mari Chau PA-C Primary Care Pr ovider Mari Chau PA-C Unavailable Mari Chau PA-C Unavailable Reason for Visit * Reason Onset Date Comments MyChart Communication 02/13/2016 Encounter Details Date Type Department Care Team (Latest Contact Info) Description 02/13/2016 [facility] Medical Advice [facility] [address] [place] [address] Mari Chau PA-C [address] [place] [address] MyChart Communication Social History Tobacco Use [...] on filedocumented in this encounter Care Teams Digital Media Planner Relationship Specialty Start Date End Date Mari Chau PA-C [address] [place] [address] PCP - General Family Practice 10/31/10 Mari Chau PA-C [address] [place] [address] PCP - Assigned PCP 11/05/10 07/08/18 Mari Chau PA-C [address] [place] [address] Assigned PCP 02/07/12 02/14/19 documented as of this encounter
--- OUTSIDE RECORDS SUMMARY | 2023-12-30 09:59 | XMS_ITS | Encounter Summary ---
Author Organization [place] Address [address] [place] [address]. [place] [address] Care Team Providers Care Virologist Name Role Phone Mari Chau PA-C Primary Care Pr ovider Mari Chau PA-C Unavailable Mari Chau PA-C Unavailable Encounter Details Date Type Department Care Team (Late st Contact Info) Description 03/04/2015 MyC Medical Advice [address] [address] Jess Wild, MOTEL OPERATOR Social History Tobacco Use Types Packs/Day [...] on filedocumented in this encounter Care Teams Virologist Relationship Specialty Start Date End Date Mari Chau PA-C [address] [place] [address] PCP - General Family Practice 10/31/10 Mari Chau PA-C [address] [place] [address] PCP - Assigned PCP 11/05/10 07/08/18 Mari Chau PA-C [address] [place] [address] Assigned PCP 02/07/12 02/14/19 documented as of this encounter
--- OUTSIDE RECORDS SUMMARY | 2023-12-30 09:59 | XMS_ITS | Encounter Summary ---
Author Organization [facility] Address [address] [place] [address]. [place] [address] Care Team Providers Care Production Broaching Machine Operator Name Role Phone Mari Chau PA-C Primary Care Pr ovider Mari Chau PA-C Unavailable Mari Chau PA-C Unavailable Encounter Details Date Type Department Care Team (Late st Contact Info) Description 06/24/2014 MyC Medical Advice [address] [address] Tamiko Llamas, DO [address] [facility] [address] [place] [address] Fatigue (Primary Dx) Social History [...] fatigue documented in this encounter Care Teams Production Broaching Machine Operator Relationship Specialty Start Date End Date Mari Chau PA-C [address] [place] [address] PCP - General Family Practice 10/31/10 Mari Chau PA-C [address] [place] [address] PCP - Assigned PCP 11/05/10 07/08/18 Mari Chau PA-C [address] [place] [address] Assigned PCP 02/07/12 02/14/19 documented as of this encounter
--- OUTSIDE RECORDS SUMMARY | 2023-12-30 09:59 | XMS_ITS | Encounter Summary ---
Author Organization [place] Address [address] [place] [address]. [place] [address] Care Team Providers Care Clinical Courier Name Role Phone Mari Chau PA-C Primary Care Pr ovider Mari Chau PA-C Unavailable Mari Chau PA-C Unavailable Reason for Visit * Reason Onset Date Comments Referral 12/12/2012 Encounter Details Date Type Department Care Team (Late st Contact Info) Description 12/12/[address] [facility] [address] [place] [phone] Mari Chau PA-C [id number] [place] [address] Referral Social History Tobacco Use Types [...] for this clinic and gave info for [facility]. If she needs a referral Mari [...] phone number to reach pt at is: [phone] Ok to leave a message with medical info? yes Pharmacy Information:none Sylvie Tsai, Canine Service Teacher documented in this encounter Plan of Treatment Not on file documented as of this encounter Visit Diagnoses Not on filedocumented in this encounter Care Teams Clinical Courier Relationship Specialty Start Date End Date Mari Chau PA-C [address] [place] [address] PCP - General Family Practice 10/31/10 Mari Chau PA-C [address] [place] [address] PCP - Assigned PCP 11/05/10 07/08/18 Mari Chau PA-C [address] [place] [address] Assigned PCP 02/07/12 02/14/19 documented as of this encounter
--- OUTSIDE RECORDS SUMMARY | 2023-12-30 09:59 | XMS_ITS | Encounter Summary ---
Author Organization [facility] Address [address] [place] [address]. [place] [address] Care Team Providers Care Disability Specialist Name Role Phone Mari Chau PA-C Primary Care Pr ovider Mari Chau PA-C Unavailable Mari Chau PA-C Unavailable Encounter Details Date Type Department Care Team (Late st Contact Info) Description 06/14/2014 MyC Medical Advice [address] [address] Tamiko Llamas, DO [address] [facility] [address] [place] [address] Social History Tobacco Use Types [...] on filedocumented in this encounter Care Teams Disability Specialist Relationship Specialty Start Date End Date Mari Chau PA-C [address] [place] [address] PCP - General Family Practice 10/31/10 Mari Chau PA-C [address] [place] [address] PCP - Assigned PCP 11/05/10 07/08/18 Mari Chau PA-C [address] [place] [address] Assigned PCP 02/07/12 02/14/19 documented as of this encounter
--- OUTSIDE RECORDS SUMMARY | 2023-12-30 09:59 | XMS_ITS | Encounter Summary ---
Author Organization [place] Address [address] [place] [address]. [place] [address] Care Team Providers Care Packing House Laborer Name Role Phone Steph Venegas MD Primary Care Provid er Mari Chau PA-C Primary Care Pr ovider Mari Chau PA-C Unavailable Mari Chau PA-C Unavailable Encounter Details Date Type Department Care Team (Late st Contact Info) Description 11/04/2009 [facility] [address] [place] [address] Antonio Louis MD NO INFO [...] Primary documented in this encounter Care Teams Packing House Laborer Relationship Specialty Start Date End Date Steph Venegas MD [address] [place] [address] PCP - General 03/27/04 10/30/10 Mari Chau PA-C [address] [place] [address] PCP - General Family Practice 10/31/10 Mari Chau PA-C [address] [place] [address] PCP - Assigned PCP 11/05/10 07/08/18 Mari Chau PA-C [address] [place] [address] Assigned PCP 02/07/12 02/14/19 documented as of this encounter
--- OUTSIDE RECORDS SUMMARY | 2023-12-30 09:59 | XMS_ITS | Encounter Summary ---
Author Organization [place] Address [address] [place] [address]. [place] [address] Care Team Providers Care Assistant At Surgery Name Role Phone Mari Chau PA-C Primary Care Pr ovider Mari Chau PA-C Unavailable Mari Chau PA-C Unavailable Reason for Visit * Reason Onset Date Comments MyChart Communication 12/08/2013 Encounter Details Date Type Department Care Team (Latest Contact Info) Description 12/08/2013 MyC Medical Advice [facility] [id number] [place] [phone] Mari Chau PA-C [id number] [place] [address] MyChart Communication Social History Tobacco Use [...] on filedocumented in this encounter Care Teams Assistant At Surgery Relationship Specialty Start Date End Date Mari Chau PA-C [address] [place] [address] PCP - General Family Practice 10/31/10 Mari Chau PA-C [address] [place] [address] PCP - Assigned PCP 11/05/10 07/08/18 Mari Chau PA-C [address] [place] [address] Assigned PCP 02/07/12 02/14/19 documented as of this encounter
--- OUTSIDE RECORDS SUMMARY | 2023-12-30 09:59 | XMS_ITS | Encounter Summary ---
Author Organization [place] Address [address] [place] [address]. [place] [address] Care Team Providers Care Leather Cutter Name Role Phone Mari Chau PA-C Primary Care Pr ovider Mari Chau PA-C Unavailable Mari Chau PA-C Unavailable Encounter Details Date Type Department Care Team (Late st Contact Info) Description 05/17/2015 MyC Medical Advice [address] [phone] Jess Wild, CARPET TILE LAYER Social History Tobacco Use Types Packs/Day Years [...] filedocumented in this encounter Care Teams Leather Cutter Relationship Specialty Start Date End Date Mari Chau PA-C [address] [place] [address] PCP - General Family Practice 10/31/10 Mari Chau PA-C [address] [place] [address] PCP - Assigned PCP 11/05/10 07/08/18 Mari Chau PA-C [address] [place] [address] Assigned PCP 02/07/12 02/14/19 documented as of this encounter
--- NOTE | 2023-12-30 10:38 | W.ANESCHARGE ---
Anesthesia Charges Start Date/Time Anesthesia Start Date: 12/30/23 Anesthesia Start Time: 10:26 Stop Date/Time Anesthesia Stop Date: 12/30/23 Anesthesia Stop Time: 10:42
--- NOTE | 2023-12-30 10:44 | W.ANESCHARGE ---
Anesthesia Charges Start Date/Time Anesthesia Start Date: 12/30/23 Anesthesia Start Time: 10:26 Stop Date/Time Anesthesia Stop Date: 12/30/23 Anesthesia Stop Time: 10:42
== END 2023-12-30 09:55 | disposition home or self-care (01) ==
PROVIDERS: PCP Emergency Medicine; Visit Provider Surgery
DX: K21.9 Gastro-esophageal reflux disease without esophagitis (principal); K31.7 Polyp of stomach and duodenum
CPT/HCPCS: 00731; 43239; 88305; J2704; J3010

== ENCOUNTER 2024-01-09 15:50 | Outpatient (CLI) | payer BC, SELFPAY ==
--- OUTSIDE RECORDS SUMMARY | 2024-01-14 13:43 | XMS_ITS | Encounter Summary ---
Author Organization [place] Address [address] [place] [address]. [place] [address] Care Team Providers Care Mandrel Cleaner Name Role Phone Mari Chau PA-C Primary Care Pr ovider Mari Chau PA-C Unavailable Mari Chau PA-C Unavailable Reason for Visit * Reason Onset Date Comments MyChart Communication 02/16/2016 Encounter Details Date Type Department Care Team (Latest Contact Info) Description 02/16/2016 [facility] [place] [facility] [id number] [place] [phone] Mari Chau PA-C [phone] [place] [address] MyChart Communication Social History Tobacco Use [...] on filedocumented in this encounter Care Teams Mandrel Cleaner Relationship Specialty Start Date End Date Mari Chau PA-C [address] [place] [address] PCP - General Family Practice 10/31/10 Mari Chau PA-C [address] [place] [address] PCP - Assigned PCP 11/05/10 07/08/18 Mari Chau PA-C [address] [place] [address] Assigned PCP 02/07/12 02/14/19 documented as of this encounter
--- OUTSIDE RECORDS SUMMARY | 2024-01-14 13:43 | XMS_ITS | Encounter Summary ---
Author Organization [place] Address [address] [place] [address]. [place] [address] Care Team Providers Care Care Coordination Manager Name Role Phone Mari Chau PA-C Primary Care Pr ovider Mari Chau PA-C Unavailable Mari Chau PA-C Unavailable Reason for Visit * Reason Onset Date Comments MyChart Communication 02/13/2016 Encounter Details Date Type Department Care Team (Latest Contact Info) Description 02/13/2016 [facility] Medical Advice [facility] [id number] [place] [phone] Mari Chau PA-C [address] [place] [address] MyChart Communication Social History Tobacco Use [...] on filedocumented in this encounter Care Teams Care Coordination Manager Relationship Specialty Start Date End Date Mari Chau PA-C [address] [place] [address] PCP - General Family Practice 10/31/10 Mari Chau PA-C [address] [place] [address] PCP - Assigned PCP 11/05/10 07/08/18 Mari Chau PA-C [address] [place] [address] Assigned PCP 02/07/12 02/14/19 documented as of this encounter
--- OUTSIDE RECORDS SUMMARY | 2024-01-14 13:43 | XMS_ITS | Encounter Summary ---
Author Organization [place] Address [address] [place] [address]. [place] [address] Care Team Providers Care Cotton Tipper Name Role Phone Mari Chau PA-C Primary Care Pr ovider Mari Chau PA-C Unavailable Mari Chau PA-C Unavailable Encounter Details Date Type Department Care Team (Late st Contact Info) Description 05/21/2016 MyC Medical Advice [address] [phone] Jess Wild, UPSETTER HELPER Social History Tobacco Use Types Packs/Day Years [...] on filedocumented in this encounter Care Teams Cotton Tipper Relationship Specialty Start Date End Date Mari Chau PA-C [address] [place] [address] PCP - General Family Practice 10/31/10 Mari Chau PA-C [address] [place] [address] PCP - Assigned PCP 11/05/10 07/08/18 Mari Chau PA-C [address] [place] [address] Assigned PCP 02/07/12 02/14/19 documented as of this encounter
--- OUTSIDE RECORDS SUMMARY | 2024-01-14 13:43 | XMS_ITS | Encounter Summary ---
Author Organization [place] Address [address] [place] [address]. [place] [address] Care Team Providers Care Superintendent Track Name Role Phone Mari Chau PA-C Primary Care Pr ovider Mari Chau PA-C Unavailable Mari Chau PA-C Unavailable Encounter Details Date Type Department Care Team (Late st Contact Info) Description 10/26/2016 MyC Medical Advice [address] [phone] Jess Wild, BRASS POLISHER Social History Tobacco Use Types Packs/Day Years [...] on filedocumented in this encounter Care Teams Superintendent Track Relationship Specialty Start Date End Date Mari Chau PA-C [address] [place] [address] PCP - General Family Practice 10/31/10 Mari Chau PA-C [address] [place] [address] PCP - Assigned PCP 11/05/10 07/08/18 Mari Chau PA-C [address] [place] [address] Assigned PCP 02/07/12 02/14/19 documented as of this encounter
--- OUTSIDE RECORDS SUMMARY | 2024-01-14 13:43 | XMS_ITS | Clinical Summary ---
Author Organization [place] Address [address] [place] [address]. [place] [address] Care Team Providers Care Supply Chain Generalist Name Role Phone Adolfo Chau PA-C Primary Care Pr ovider Allergies Active Allergy Reactions Criticality Noted Date Comments Erythromycin 08/31/2002 Seasonal Allergies 11/16/2013 Medications Medication Sig Dispensed Refills Start Date End Date Status CRANBERRY daily Active UNABLE TO FIND MEDICATION NAME: biocell collagen Active UNABLE TO FIND MEDICATION NAME: fluconauzole Active UNABLE TO FIND MEDICATION NAME: clobetasol ointment Active clotrimazole-betame thasone (LOTRISONE) creamIndications:Ac [place] vaginitis Apply topically 2 times daily 15 [...] T Respiratory Rate 16 04/08/2013 10:19 AM INSTRUCTOR BRIDGE Oxygen Saturation 98% 02/09/2016 2:24 PM CDT [...] 1 & 2 ANTIBODY Routine 9:03 AM INSTRUCTOR BRIDGE Supervision of Other Normal from Last 3 Months or Most Recently Relevant to Health Maintenance Results * (ABNORMAL) Lipid panel reflex to direct LDL (11/16/2013 8:35 AM CDT) Cholesterol 145 <200 mg/dL [facility] Comment: LDL Cholesterol is the primary guide to therapy. The NCEP recommends further evaluation of: patients with cholesterol greater than 200 mg/dL if additional risk factors are present, cholesterol greater than 240 mg/dL, triglycerides greater than 150 mg/dL, or HDL less than 40 mg/dL. Triglycerides 60 0 - 150 mg/dL [facility] HDL Cholesterol 48(L) >50 mg/dL [facility] LDL Cholesterol Calculated 85 0 - 129 mg/dL [facility] Comment: LDL Cholesterol is the primary guide to therapy: LDL-cholesterol goal in high risk patients is <100 mg/dL and in very high risk patients is <70 mg/dL. VLDL-Cholesterol 12 0 - 30 mg/dL [facility] Cholesterol/HDL Ratio 3.0 0.0 - 5.0 [facility] Blood specimen (specimen) 11/16/2013 8:35 AM CDT 11/16/2013 8:40 AM CDT Adolfo Chau PA-C LAB - BL OOD ORDERABLES [facility] [address] [place] [address] * Comprehensive metabolic panel (11/16/2013 8:35 AM CDT) Sodium 141 133 - 144 mmol/L [facility] Potassium 4.0 3.4 - 5.3 mmol/L [facility] Chloride 103 94 - 109 mmol/L [facility] Carbon Dioxide 26 20 - 32 mmol/L [facility] Anion Gap 11 6 - 17 mmol/L [facility] Glucose 84 60 - 99 mg/dL [facility] Urea Nitrogen 15 5 - 24 mg/dL [facility] Creatinine 0.79 0.52 - 1.04 mg/dL [facility] GFR Estimate 82 >60 mL/min/1.7 m2 [facility] GFR Estimate If Black >90 >60 mL/min/1.7 m2 [facility] Calcium 9.0 8.5 - 10.4 mg/dL [facility] Bilirubin Total 0.7 0.2 - 1.3 mg/dL [facility] Albumin 4.2 3.9 - 5.1 g/dL [facility] Protein Total 7.1 6.8 - 8.8 g/dL [facility] Alkaline Phosphatase 40 40 - 150 U/L [facility] ALT 25 0 - 50 U/L [facility] AST 23 0 - 45 U/L [facility] Blood specimen (specimen) 11/16/2013 8:35 AM CDT 11/16/2013 8:40 AM CDT Adolfo Chau PA-C LAB - BL OOD ORDERABLES [facility] [address] [place] [address] * PAP IMAGED THIN LAYER SCREEN (08/02/2011 9:26 AM CDT) PAP TANYA Rogers Report Patient Name: BELLA COFFEY MR#: [id number] Specimen #: [id number] Collected: 08/02/2011 Received: 08/02/2011 Reported: 08/03/2011 14:07 [...] MAXIMILIAN Moise (ASCP) Processed and screened at [facility] CLINICAL HISTORY: Previous normal pap Date of Last Pap: 12/15/09, Papanicolaou Test Limitations: ??Cervical cytology is a screening test with limited sensitivity; regular screening is critical for cancer prevention; Pap tests are primarily effective for the diagnosis/preventi on of squamous cell carcinoma, not adenocarcinomas or other cancers. TESTING LAB LOCATION: [address] ??[phone] [facility] SITE[facility] Cytologic material (specimen) 08/02/2011 9:26 AM CDT 08/02/2011 2:05 PM CDT Adolfo Chau PA-C LAB - OP TIME CLINICAL SPECIMEN [facility] * HIV 1 & 2, SCREEN (05/03/2009 9:03 AM INSTRUCTOR BRIDGE) HIV 1&2 Antibody Negative [facility] 05/03/2009 9:03 AM INSTRUCTOR BRIDGE 05/03/2009 9:08 AM INSTRUCTOR BRIDGE Earl Issa MD LABORATORY [facility] from Last 3 Months or Most Recently Relevant to Health Maintenance Care Teams Supply Chain Generalist Relationship Specialty Start Date End Date Adolfo Chau PA-C [address] [place] [address] PCP - General Family Practice 10/31/10
--- OUTSIDE RECORDS SUMMARY | 2024-01-14 13:43 | XMS_ITS | Encounter Summary ---
Author Organization [place] Address [address] [place] [address]. [place] [address] Care Team Providers Care Rod Buster Name Role Phone Mari Chau PA-C Primary Care Pr ovider Mari Chau PA-C Unavailable Mari Chau PA-C Unavailable Reason for Visit * Reason Onset Date Comments MyChart Communication 02/15/2016 Encounter Details Date Type Department Care Team (Latest Contact Info) Description 02/15/2016 [facility] Medical Advice [facility] [id number] [place] [phone] Mari Chau PA-C [id number] [place] [address] MyChart Communication Social History Tobacco Use [...] on filedocumented in this encounter Care Teams Rod Buster Relationship Specialty Start Date End Date Mari hCau PA-C [address] [place] [address] PCP - General Family Practice 10/31/10 Mari Chau PA-C [address] [place] [address] PCP - Assigned PCP 11/05/10 07/08/18 Mari Chau PA-C [address] [place] [address] Assigned PCP 02/07/12 02/14/19 documented as of this encounter
--- OUTSIDE RECORDS SUMMARY | 2024-01-14 13:43 | XMS_ITS | Encounter Summary ---
Author Organization [place] Address [address] [place] [address]. [place] [address] Care Team Providers Care Child Psychologist Name Role Phone Mari Chau PA-C Primary Care Pr ovider Mari Chau PA-C Unavailable Mari Chau PA-C Unavailable Reason for Visit * Reason Onset Date Comments Outreach 01/09/2017 phs att 1 Encounter Details Date Type Department Care Team (Late st Contact Info) Description 01/09/2017 Telephone [facility] [address] [place] [address] Mari Chau PA-C [address] [place] [address] Outreach (phs att 1) Social [...] Attempt 1 Message on voicemail Comments: Outreach Inspector Hot Forgings AT documented in this encounter Plan of Treatment Not on file documented as of this encounter Visit Diagnoses Not on filedocumented in this encounter Care Teams Child Psychologist Relationship Specialty Start Date End Date Mari Chau PA-C [address] [place] [address] PCP - General Family Practice 10/31/10 Mari Chau PA-C [address] [place] [address] PCP - Assigned PCP 11/05/10 07/08/18 Mari Chau PA-C [address] [place] [address] Assigned PCP 02/07/12 02/14/19 documented as of this encounter
--- OUTSIDE RECORDS SUMMARY | 2024-01-14 13:43 | XMS_ITS | Referral Summary ---
Author Organization [facility] Address [address] [place] [address]. [place] [address] Care Team Providers Care Computer Teacher Name Role Phone Adolfo Chau PA-C Primary Care Pr ovider Allergies Active Allergy Reactions Criticality Noted Date Comments Erythromycin 08/31/2002 Seasonal Allergies 11/16/2013 Medications Medication Sig Dispensed Refills Start Date End Date Status CRANBERRY daily Active UNABLE TO FIND MEDICATION NAME: biocell collagen Active UNABLE TO FIND MEDICATION NAME: fluconauzole Active UNABLE TO FIND MEDICATION NAME: clobetasol ointment Active clotrimazole-betame thasone (LOTRISONE) creamIndications:Ac [place] vaginitis Apply topically 2 times daily 15 [...] T Respiratory Rate 16 04/08/2013 10:19 AM SHERIFF SERGEANT Oxygen Saturation 98% 02/09/2016 2:24 PM CDT [...] & 2 ANTIBODY Routine 9 9:03 AM SHERIFF SERGEANT Supervision of Other Normal from Last 3 [...] [facility] HDL Cholesterol 48(L) >50 mg/dL [facility] [...] ORDERABLES [facility] [address] [place] [address] * Comprehensive metabolic panel (11/16/2013 8:35 AM CDT) Pathologist [facility] Sodium 141 133 - 144 mmol/L [facility] [...] ORDERABLES [facility] [address] [place] [address] * PAP IMAGED THIN LAYER SCREEN (08/02/2011 9:26 AM CDT) PAP TANYA Rogers Report Patient Name: BELLA COFFEY MR#: [id number] Specimen #: [id number] Collected: 08/02/2011 Received: 08/02/2011 Reported: 08/03/2011 14:07 [...] MAXIMILIAN Moise (ASCP) Processed and screened at [facility] CLINICAL HISTORY: Previous normal pap Date of Last Pap: 12/15/09, Papanicolaou Test Limitations: ??Cervical cytology is a screening test with limited sensitivity; regular screening is critical for cancer prevention; Pap tests are primarily effective for the diagnosis/preventi on of squamous cell carcinoma, not adenocarcinomas or other cancers. TESTING LAB LOCATION: [facility] [address] [address] [place] ??[address] COLLECTION SITE: Client: [facility] Location: [facility] (R) COP[facility] Cytologic material (specimen) 08/02/2011 9:26 AM CDT 08/02/2011 2:05 PM CDT Adlofo Chau PA-C LAB - OP TIME CLINICAL SPECIMEN [facility] * HIV 1 & 2, SCREEN (05/03/2009 9:03 AM SHERIFF SERGEANT) HIV 1&2 Antibody Negative [facility] 05/03/2009 9:03 AM SHERIFF SERGEANT 05/03/2009 9:08 AM SHERIFF SERGEANT Earl Issa MD LABORATORY [facility] from Last 3 Months or Most Recently Relevant to Health Maintenance Care Teams Computer Teacher Relationship Specialty Start Date End Date Adolfo Chau PA-C [address] [place], [place] [id number] PCP - General Family Practice 10/31/10
--- OUTSIDE RECORDS SUMMARY | 2024-01-14 13:44 | XMS_ITS | Encounter Summary ---
Author Organization [place] Address [address] [place] [address]. [place] [address] Care Team Providers Care Slimer Name Role Phone Mari Chau PA-C Primary Care Pr ovider Mari Chau PA-C Unavailable Mari Chau PA-C Unavailable Encounter Details Date Type Department Care Team (Late st Contact Info) Description 03/04/2015 MyC Medical Advice [address] [phone] Jess Wild, MANAGER PROCESS Social History Tobacco Use Types Packs/Day Years [...] on filedocumented in this encounter Care Teams Slimer Relationship Specialty Start Date End Date Mari Chau PA-C [address] [place] [address] PCP - General Family Practice 10/31/10 Mari Chau PA-C [address] [place] [address] PCP - Assigned PCP 11/05/10 07/08/18 Mari Chau PA-C [address] [place] [address] Assigned PCP 02/07/12 02/14/19 documented as of this encounter
--- OUTSIDE RECORDS SUMMARY | 2024-01-14 13:44 | XMS_ITS | Encounter Summary ---
Author Organization [place] Address [address] [place] [address]. [place] [address] Care Team Providers Care Requisition Approver Name Role Phone Mari Chau PA-C Primary Care Pr ovider Mari Chau PA-C Unavailable Mari Chau PA-C Unavailable Encounter Details Date Type Department Care Team (Late st Contact Info) Description 05/17/2015 MyC Medical Advice [address] [phone] Jess Wild, EXECUTIVE ASST Social History Tobacco Use Types Packs/Day Years [...] on filedocumented in this encounter Care Teams Requisition Approver Relationship Specialty Start Date End Date Mari Chau PA-C [address] [place] [address] PCP - General Family Practice 10/31/10 Mari Chau PA-C [address] [place] [address] PCP - Assigned PCP 11/05/10 07/08/18 Mari Chau PA-C [address] [place] [address] Assigned PCP 02/07/12 02/14/19 documented as of this encounter
--- OUTSIDE RECORDS SUMMARY | 2024-01-14 13:44 | XMS_ITS | Encounter Summary ---
Author Organization [place] Address [address] [place] [address]. [place] [address] Care Team Providers Care Ferry Engineer Name Role Phone Mari Chau PA-C Primary Care Pr ovider Mari Chau PA-C Unavailable Mari Chau PA-C Unavailable Encounter Details Date Type Department Care Team (Late st Contact Info) Description 06/14/2014 MyC Medical Advice [address] [phone] Tamiko Llmaas, DO [address] [facility] [address] [place] [address] Social History Tobacco Use Types [...] on filedocumented in this encounter Care Teams Ferry Engineer Relationship Specialty Start Date End Date Mari Chau PA-C [address] [place] [address] PCP - General Family Practice 10/31/10 Mari Chau PA-C [address] [place] [address] PCP - Assigned PCP 11/05/10 07/08/18 Mari Chau PA-C [address] [place] [address] Assigned PCP 02/07/12 02/14/19 documented as of this encounter
--- OUTSIDE RECORDS SUMMARY | 2024-01-14 13:44 | XMS_ITS | Encounter Summary ---
Author Organization [place] Address [address] [place] [address]. [place] [address] Care Team Providers Care Edger Tailer Name Role Phone Steph Venegas MD Primary Care Provid er Mari Chau PA-C Primary Care Pr ovider Mari Chau PA-C Unavailable Mari Chau PA-C Unavailable Encounter Details Date Type Department Care Team (Late st Contact Info) Description 11/04/2009 [facility] [address] [place] [address] Antonio Louis MD NO INFO [...] Primary documented in this encounter Care Teams Edger Tailer Relationship Specialty Start Date End Date tSeph Venegas MD [address] [place] [address] PCP - General 03/27/04 10/30/10 Mari Chau PA-C [address] [place] [address] PCP - General Family Practice 10/31/10 Mari Chau PA-C [address] [place] [address] PCP - Assigned PCP 11/05/10 07/08/18 Mari Chau PA-C [address] [place] [address] Assigned PCP 02/07/12 02/14/19 documented as of this encounter
--- OUTSIDE RECORDS SUMMARY | 2024-01-14 13:44 | XMS_ITS | Encounter Summary ---
Author Organization [place] Address [address] [place] [address]. [place] [address] Care Team Providers Care Fireperson Name Role Phone Mari Chau PA-C Primary Care Pr ovider Mari Chau PA-C Unavailable Mari Chau PA-C Unavailable Reason for Visit * Reason Onset Date Comments MyChart Communication 12/08/2013 Encounter Details Date Type Department Care Team (Latest Contact Info) Description 12/08/2013 MyC Medical Advice [facility] [id number] [place] [phone] Mari Chau PA-C [id number] [place] [address] MyChart Communication Social History Tobacco Use [...] on filedocumented in this encounter Care Teams Fireperson Relationship Specialty Start Date End Date Mari Chau PA-C [address] [place] [address] PCP - General Family Practice 10/31/10 Mari Chau PA-C [address] [place] [address] PCP - Assigned PCP 11/05/10 07/08/18 Mari Chau PA-C [address] [place] [address] Assigned PCP 02/07/12 02/14/19 documented as of this encounter
--- OUTSIDE RECORDS SUMMARY | 2024-01-14 13:44 | XMS_ITS | Encounter Summary ---
Author Organization [place] Address [address] [place] [address]. [place] [address] Care Team Providers Care Cash Shortage Investigator Name Role Phone Mari Chau PA-C Primary Care Pr ovider Mari Chau PA-C Unavailable Mari Chau PA-C Unavailable Encounter Details Date Type Department Care Team (Late st Contact Info) Description 06/24/2014 MyC Medical Advice [address] [phone] Tamiko Llamas, DO [address] [facility] [address] [place] [address] Fatigue (Primary Dx) Social History [...] fatigue documented in this encounter Care Teams Cash Shortage Investigator Relationship Specialty Start Date End Date Mari Chau PA-C [address] [place] [address] PCP - General Family Practice 10/31/10 Mari Chau PA-C [address] [place] [address] PCP - Assigned PCP 11/05/10 07/08/18 Mari Chau PA-C [address] [place] [address] Assigned PCP 02/07/12 02/14/19 documented as of this encounter
--- OUTSIDE RECORDS SUMMARY | 2024-01-14 13:44 | XMS_ITS | Encounter Summary ---
Author Organization [place] Address [address] [place] [address]. [place] [address] Care Team Providers Care Shirt Sorter Name Role Phone Mari Chau PA-C Primary Care Pr ovider Mari Chau PA-C Unavailable Mari Chau PA-C Unavailable Reason for Visit * Reason Onset Date Comments Referral 12/12/2012 Encounter Details Date Type Department Care Team (Late st Contact Info) Description 12/12/2012 Telephone [facility] [id number] [place] [phone] Mari Chau PA-C [id number] [place] [address] Referral Social History Tobacco Use Types [...] for this clinic and gave info for Ms clinic. If she needs a referral Mari [...] phone number to reach pt at is: [phone] Ok to leave a message with medical info? yes Pharmacy Information:none Sylvie Tsai, Claim Trainee documented in this encounter Plan of Treatment Not on file documented as of this encounter Visit Diagnoses Not on filedocumented in this encounter Care Teams Shirt Sorter Relationship Specialty Start Date End Date Mari Chau PA-C [address] [place] [address] PCP - General Family Practice 10/31/10 Mari Chau PA-C [address] [place] [address] PCP - Assigned PCP 11/05/10 07/08/18 Mari Chau PA-C [address] [place] [address] Assigned PCP 02/07/12 02/14/19 documented as of this encounter
== END 2024-01-09 15:51 | disposition home or self-care (01) ==
LOC: NFLDREF 01-14 13:42
PROVIDERS: PCP Emergency Medicine; Referring Provider Emergency Medicine; Visit Provider Emergency Medicine
DX: E61.1 Iron deficiency (principal); R53.82 Chronic fatigue, unspecified
CPT/HCPCS: 83540; 83550; 86140

== ENCOUNTER 2024-02-03 09:30 | Outpatient (RCR) | payer BC, SELFPAY ==
--- NOTE | 2024-01-21 12:04 | URNOTE ---
Request received for authorization for Injectafer ([id number]). Prior authorization is not required per [facility] site.
[2024-01-27 08:07] VITALS: BP 111/76; PULSE 86; RESP 16; TEMP 36.6; O2SAT 98
[2024-01-27] MEDS: FERRIC CARBOXYMALTOSE 750 MG in 0.9 % SODIUM CHLORIDE 250 ml 250 ML 1060 MG IVPB (08:25)
[2024-01-27] MEDS: 0.9 % SODIUM CHLORIDE 250 ml IV (08:31)
[2024-01-27] MEDS: SODIUM CHLORIDE 0.9 % (FLUSH) 10 ML SYRINGE IVF (08:31)
[2024-02-03 09:33] VITALS: BP 108/77; PULSE 86; RESP 14; TEMP 36.2; O2SAT 99
[2024-02-03] MEDS: SODIUM CHLORIDE 0.9 % (FLUSH) 10 ML SYRINGE IVF (09:54)
[2024-02-03] MEDS: 0.9 % SODIUM CHLORIDE 250 ml IV (09:54)
[2024-02-03] MEDS: FERRIC CARBOXYMALTOSE 750 MG in 0.9 % SODIUM CHLORIDE 250 ml 250 ML 800 MG IVPB (09:55)
[2024-02-03 10:21] VITALS: BP 99/67; PULSE 65; RESP 16; O2SAT 98
== END 2024-07-25 23:59 | disposition home or self-care (01) ==
LOC: CCIC 09:30
PROVIDERS: PCP Emergency Medicine; Referring Provider Emergency Medicine; Visit Provider Clinical Nurse Specialist
DX: O99.019 Anemia complicating pregnancy, unspecified trimester (principal); D50.9 Iron deficiency anemia, unspecified
CPT/HCPCS: 96365; 96374; J1439; J7050

== ENCOUNTER 2024-02-19 20:14 | Outpatient (CLI) | payer BC, SELFPAY ==
--- OUTSIDE RECORDS SUMMARY | 2024-02-19 20:19 | XMS_ITS | Encounter Summary ---
Author Organization [facility] Address [address] [place] [address]. [place] [address] Care Team Providers Care Billing And Insurance Coordinator Name Role Phone Mari Chau PA-C Primary Care Pr ovider Mari Chau PA-C Unavailable Mari Chau PA-C Unavailable Encounter Details Date Type Department Care Team (Late st Contact Info) Description 03/04/2015 MyC Medical Advice [address] [phone] Jess Wild, HOSE SUSPENDER CUTTER Social History Tobacco Use Types Packs/Day [...] on filedocumented in this encounter Care Teams Billing And Insurance Coordinator Relationship Specialty Start Date End Date Mari Chau PA-C [address] [place] [address] PCP - General Family Practice 10/31/10 Mari Chau PA-C [address] [place] [address] PCP - Assigned PCP 11/05/10 07/08/18 Mari Chau PA-C [address] [place] [address] Assigned PCP 02/07/12 02/14/19 documented as of this encounter
--- OUTSIDE RECORDS SUMMARY | 2024-02-19 20:19 | XMS_ITS | Encounter Summary ---
Author Organization [facility] Address [address] [place] [address]. [place] [address] Care Team Providers Care Digital Circuit Designer Name Role Phone Mari Chau PA-C Primary Care Pr ovider Mari Chau PA-C Unavailable Mari Chau PA-C Unavailable Encounter Details Date Type Department Care Team (Late st Contact Info) Description 06/24/2014 MyC Medical Advice [address] [phone] Tamiko Llamas, DO [address] [facility] [address] [place] [address] Fatigue (Primary Dx) Social History [...] fatigue documented in this encounter Care Teams Digital Circuit Designer Relationship Specialty Start Date End Date Mari Chau PA-C [address] [place] [address] PCP - General Family Practice 10/31/10 Mari Chau PA-C [address] [place] [address] PCP - Assigned PCP 11/05/10 07/08/18 Mari Chau PA-C [address] [place] [address] Assigned PCP 02/07/12 02/14/19 documented as of this encounter
--- OUTSIDE RECORDS SUMMARY | 2024-02-19 20:19 | XMS_ITS | Encounter Summary ---
Author Organization [place] Address [address] [place] [address]. [place] [address] Care Team Providers Care Farmworker Grain Name Role Phone Mari Chau PA-C Primary Care Pr ovider Mari Chau PA-C Unavailable Mari Chau PA-C Unavailable Reason for Visit * Reason Onset Date Comments Outreach 01/09/2017 phs att 1 Encounter Details Date Type Department Care Team (Late st Contact Info) Description 01/09/2017 Telephone [facility] [place] [address] [place] [address] Mari Chau PA-C [address] [place] [address] Outreach (phs att 1) Social [...] Attempt 1 Message on voicemail Comments: Outreach Residential Designer AT documented in this encounter Plan of Treatment Not on file documented as of this encounter Visit Diagnoses Not on filedocumented in this encounter Care Teams Farmworker Grain Relationship Specialty Start Date End Date Mari Chau PA-C [address] [place] [address] PCP - General Family Practice 10/31/10 Mari Chau PA-C [address] [place] [address] PCP - Assigned PCP 11/05/10 07/08/18 Mari Chau PA-C [address] [place] [address] Assigned PCP 02/07/12 02/14/19 documented as of this encounter
--- OUTSIDE RECORDS SUMMARY | 2024-02-19 20:19 | XMS_ITS | Encounter Summary ---
Author Organization [facility] Address [address] [place] [address]. [place] [address] Care Team Providers Care Automotive Project Engineer Name Role Phone Mari Chau PA-C Primary Care Pr ovider Mari Chau PA-C Unavailable Mari Chau PA-C Unavailable Reason for Visit * Reason Onset Date Comments MyChart Communication 02/13/2016 Encounter Details Date Type Department Care Team (Latest Contact Info) Description 02/13/2016 [facility] Medical Advice [facility] [id number] [place] [phone] Mari Chau PA-C [address] [place] [address] MyChart Communication Social History Tobacco Use [...] on filedocumented in this encounter Care Teams Automotive Project Engineer Relationship Specialty Start Date End Date Mari Chau PA-C [address] [place] [address] PCP - General Family Practice 10/31/10 Mari Chau PA-C [address] [place] [address] PCP - Assigned PCP 11/05/10 07/08/18 Mari Chau PA-C [address] [place] [address] Assigned PCP 02/07/12 02/14/19 documented as of this encounter
--- OUTSIDE RECORDS SUMMARY | 2024-02-19 20:19 | XMS_ITS | Encounter Summary ---
Author Organization [facility] Address [address] [place] [address]. [place] [address] Care Team Providers Care Pressing Department Supervisor Name Role Phone Mari Chau PA-C Primary Care Pr ovider Mari Chau PA-C Unavailable Mari Chau PA-C Unavailable Encounter Details Date Type Department Care Team (Late st Contact Info) Description 06/14/2014 MyC Medical Advice [address] [phone] Tamiko Llamas, DO [address] [facility] 100 [place] [address] Social History Tobacco Use Types [...] on filedocumented in this encounter Care Teams Pressing Department Supervisor Relationship Specialty Start Date End Date Mari Chau PA-C [address] [place] [address] PCP - General Family Practice 10/31/10 Mari Chau PA-C [address] [place] [address] PCP - Assigned PCP 11/05/10 07/08/18 Mari Chau PA-C [address] [place] [address] Assigned PCP 02/07/12 02/14/19 documented as of this encounter
--- OUTSIDE RECORDS SUMMARY | 2024-02-19 20:19 | XMS_ITS | Encounter Summary ---
Author Organization [facility] Address [address] [place] [address]. [place] [address] Care Team Providers Care Supervisor Hand Silvering Name Role Phone Mari Chau PA-C Primary Care Pr ovider Mari Chau PA-C Unavailable Mari Chau PA-C Unavailable Reason for Visit * Reason Onset Date Comments MyChart Communication 02/15/2016 Encounter Details Date Type Department Care Team (Latest Contact Info) Description 02/15/2016 [facility] Medical Advice [facility] [id number] [place] [phone] Mari Chau PA-C [id number] [place] [address] MyChart Communication Social History Tobacco Use [...] on filedocumented in this encounter Care Teams Supervisor Hand Silvering Relationship Specialty Start Date End Date Mari Chau PA-C [address] [place] [address] PCP - General Family Practice 10/31/10 Mari Chau PA-C [address] [place] [address] PCP - Assigned PCP 11/05/10 07/08/18 Mari Chau PA-C [address] [place] [address] Assigned PCP 02/07/12 02/14/19 documented as of this encounter
--- OUTSIDE RECORDS SUMMARY | 2024-02-19 20:19 | XMS_ITS | Encounter Summary ---
Author Organization [facility] Address [address] [place] [address]. [place] [address] Care Team Providers Care Meat Carver Name Role Phone Mari Chau PA-C Primary Care Pr ovider Mari Chau PA-C Unavailable Mari Chau PA-C Unavailable Encounter Details Date Type Department Care Team (Late st Contact Info) Description 10/26/2016 MyC Medical Advice [address] [phone] Jess Wild, SUPERINTENDENT SALES Social History Tobacco Use Types Packs/Day Years [...] on filedocumented in this encounter Care Teams Meat Carver Relationship Specialty Start Date End Date Mari Chau PA-C [address] [place] [address] PCP - General Family Practice 10/31/10 Mari Chau PA-C [address] [place] [address] PCP - Assigned PCP 11/05/10 07/08/18 Mari Chau PA-C [address] [place] [address] Assigned PCP 02/07/12 02/14/19 documented as of this encounter
--- OUTSIDE RECORDS SUMMARY | 2024-02-19 20:19 | XMS_ITS | Clinical Summary ---
Author Organization [facility] Address [address] [place] [address]. [place] [address] Care Team Providers Care Tile Professional Name Role Phone Adolfo Chau PA-C Primary [...] T Respiratory Rate 16 04/08/2013 10:19 AM ASSISTANT GOLF PROFESSIONAL Oxygen Saturation 98% 02/09/2016 2:24 PM CDT [...] 11/16/2018 11/16/2013, 08/04, 08/02/2011, Additional history exists PHQ-2 (once per calendar year) 2023 COVID-19 Vaccine ( - season) 2024 06/06/2021, 09/16/2020, 08/26/2020 DTAP/TDAP/TD IMMUNIZATION (5 - Td or Tdap) 06/17/2028 06/17/2018, 12/28/2006, 12/04/2006, Additional history exists RSV VACCINE (1 - 1-dose 75+ series) 2052 INFLUENZA VACCINE Discontinued 02/03/2009 HIV SCREENING Completed [...] 1 & 2 ANTIBODY Routine 9:03 AM ASSISTANT GOLF PROFESSIONAL Supervision of Other Normal from Last 3 Months or Most Recently Relevant to Health Maintenance Results * (ABNORMAL) Lipid panel reflex to direct LDL (11/16/2013 8:35 AM CDT) Cholesterol 145 <200 mg/dL [facility] Comment: LDL Cholesterol is the primary guide to therapy. The NCEP recommends further evaluation of: patients with cholesterol greater than 200 mg/dL if additional risk factors are present, cholesterol greater than 240 mg/dL, triglycerides greater than 150 mg/dL, or HDL less than 40 mg/dL. Triglycerides 60 0 - 150 mg/dL [facility] HDL Cholesterol 48(L) >50 mg/dL [facility] LDL Cholesterol Calculated 85 0 - 129 mg/dL [facility] Comment: LDL Cholesterol is the primary guide to therapy: LDL-cholesterol goal in high risk patients is <100 mg/dL and in very high risk patients is <70 mg/dL. VLDL-Cholesterol 12 0 - 30 mg/dL [facility] Cholesterol/HDL Ratio 3.0 0.0 - 5.0 [facility] Blood specimen (specimen) 11/16/2013 8:35 AM CDT 11/16/2013 8:40 AM CDT Adolfo Chau PA-C LAB - BL OOD ORDERABLES [facility] [address] [place] [address] * Comprehensive metabolic panel (11/16/2013 8:35 AM CDT) Sodium 141 133 - 144 mmol/L [facility] Potassium 4.0 3.4 - 5.3 mmol/L [facility] Chloride 103 94 - 109 mmol/L [facility] Carbon Dioxide 26 20 - 32 mmol/L [facility] Anion Gap 11 6 - 17 mmol/L [facility] Glucose 84 60 - 99 mg/dL [facility] Urea Nitrogen 15 5 - 24 mg/dL [facility] Creatinine 0.79 0.52 - 1.04 mg/dL [facility] GFR Estimate 82 >60 mL/min/1.7 m2 [facility] GFR Estimate If Black >90 >60 mL/min/1.7 m2 [facility] Calcium 9.0 8.5 - 10.4 mg/dL [facility] Bilirubin Total 0.7 0.2 - 1.3 mg/dL [facility] Albumin 4.2 3.9 - 5.1 g/dL [facility] Protein Total 7.1 6.8 - 8.8 g/dL [facility] Alkaline Phosphatase 40 40 - 150 U/L [facility] ALT 25 0 - 50 U/L [facility] AST 23 0 - 45 U/L [facility] Blood specimen (specimen) 11/16/2013 8:35 AM CDT 11/16/2013 8:40 AM CDT Adolfo Chau PA-C LAB - BL OOD ORDERABLES [facility] [address] [place] [address] * PAP IMAGED THIN LAYER SCREEN (08/02/2011 9:26 AM CDT) PAP NIL COPATH Copath Report Patient Name: BELLA COFFEY MR#: [id number] Specimen #: [id number] Collected: 08/02/2011 Received: 08/02/2011 Reported: 08/03/2011 14:07 [...] MAXIMILIAN Moise (ASCP) Processed and screened at [facility] CLINICAL HISTORY: Previous normal pap Date of Last Pap: 12/15/09, Papanicolaou Test Limitations: ??Cervical cytology is a screening test with limited sensitivity; regular screening is critical for cancer prevention; Pap tests are primarily effective for the diagnosis/preventi on of squamous cell carcinoma, not adenocarcinomas or other cancers. TESTING LAB LOCATION: [address] ??[address] COLLECTION SITE: Client: ??[facility] Location: [facility] (R) COPATH Cytologic material (specimen) 08/02/2011 9:26 AM CDT 08/02/2011 2:05 PM CDT Adolfo Chau PA-C LAB - OP TIME CLINICAL SPECIMEN [facility] * HIV 1 & 2, SCREEN (05/03/2009 9:03 AM ASSISTANT GOLF PROFESSIONAL) HIV 1&2 Antibody Negative [facility]G [facility] 05/03/2009 9:03 AM ASSISTANT GOLF PROFESSIONAL 05/03/2009 9:08 AM ASSISTANT GOLF PROFESSIONAL Earl Issa MD LABORATORY [facility] from Last 3 Months or Most Recently Relevant to Health Maintenance Care Teams Tile Professional Relationship Specialty Start Date End Date Adolfo Chau PA-C [address] [place] [address] PCP - General Family Practice 10/31/10
--- OUTSIDE RECORDS SUMMARY | 2024-02-19 20:19 | XMS_ITS | Encounter Summary ---
Author Organization [facility] Address [address] [place] [address]. [place] [address] Care Team Providers Care Underwriting Clerks Supervisor Name Role Phone Mari Chau PA-C Primary Care Pr ovider Mari Chau PA-C Unavailable Mari Chau PA-C Unavailable Encounter Details Date Type Department Care Team (Late st Contact Info) Description 05/21/2016 MyC Medical Advice [address] [phone] Jess Wild, DIMMER BOARD OPERATOR Social History Tobacco Use Types Packs/Day [...] on filedocumented in this encounter Care Teams Underwriting Clerks Supervisor Relationship Specialty Start Date End Date Mari Chau PA-C [address] [place] [address] PCP - General Family Practice 10/31/10 Mari Chau PA-C [address] [place] [address] PCP - Assigned PCP 11/05/10 07/08/18 Mari Chau PA-C [address] [place] [address] Assigned PCP 02/07/12 02/14/19 documented as of this encounter
--- OUTSIDE RECORDS SUMMARY | 2024-02-19 20:19 | XMS_ITS | Referral Summary ---
Author Organization [facility] Address [address] [place] [address]. [place] [address] Care Team Providers Care Associate Buyer Name Role Phone Adolfo Chau PA-C Primary [...] T Respiratory Rate 16 04/08/2013 10:19 AM AUTOMATIC STEEL TIE ADJUSTER Oxygen Saturation 98% 02/09/2016 2:24 PM CDT [...] & 2 ANTIBODY Routine 9 9:03 AM AUTOMATIC STEEL TIE ADJUSTER Supervision of Other Normal from Last 3 Months or Most Recently Relevant to Health Maintenance Results * (ABNORMAL) Lipid panel reflex to direct LDL (11/16/2013 8:35 AM CDT) Cholesterol 145 <200 mg/dL [facility] Comment: LDL Cholesterol is the primary guide to therapy. The NCEP recommends further evaluation of: patients with cholesterol greater than 200 mg/dL if additional risk factors are present, cholesterol greater than 240 mg/dL, triglycerides greater than 150 mg/dL, or HDL less than 40 mg/dL. Triglycerides 60 0 - 150 mg/dL [facility] HDL Cholesterol 48(L) >50 mg/dL [facility] LDL Cholesterol Calculated 85 0 - 129 mg/dL [facility] Comment: LDL Cholesterol is the primary guide to therapy: LDL-cholesterol goal in high risk patients is <100 mg/dL and in very high risk patients is <70 mg/dL. VLDL-Cholesterol 12 0 - 30 mg/dL [facility] Cholesterol/HDL Ratio 3.0 0.0 - 5.0 [facility] Blood specimen (specimen) 11/16/2013 8:35 AM CDT 11/16/2013 8:40 AM CDT Adolfo Chau PA-C LAB - BL OOD ORDERABLES [facility] [address] [place] [address] * Comprehensive metabolic panel (11/16/2013 8:35 AM CDT) Pathologist [facility] Sodium 141 133 - 144 mmol/L [facility] Potassium 4.0 3.4 - 5.3 mmol/L [facility] Chloride 103 94 - 109 mmol/L [facility] Carbon Dioxide 26 20 - 32 mmol/L [facility] Anion Gap 11 6 - 17 mmol/L [facility] Glucose 84 60 - 99 mg/dL [facility] Urea Nitrogen 15 5 - 24 mg/dL [facility] Creatinine 0.79 0.52 - 1.04 mg/dL [facility] GFR Estimate 82 >60 mL/min/1.7 m2 [facility] GFR Estimate If Black >90 >60 mL/min/1.7 m2 [facility] Calcium 9.0 8.5 - 10.4 mg/dL [facility] Bilirubin Total 0.7 0.2 - 1.3 mg/dL [facility] Albumin 4.2 3.9 - 5.1 g/dL [facility] Protein Total 7.1 6.8 - 8.8 g/dL [facility] Alkaline Phosphatase 40 40 - 150 U/L [facility] ALT 25 0 - 50 U/L [facility] AST 23 0 - 45 U/L [facility] Blood specimen (specimen) 11/16/2013 8:35 AM CDT 11/16/2013 8:40 AM CDT Adolfo Chau PA-C LAB - BL OOD ORDERABLES [facility] [address] [place] [address] * PAP IMAGED THIN LAYER SCREEN (08/02/2011 9:26 AM CDT) PAP TANYA Rogers Report Patient Name: BELLA COFFEY MR#: [id number] Specimen #: [id number] Collected: 08/02/2011 Received: 08/02/2011 Reported: 08/03/2011 14:07 [...] MAXIMILIAN Moise (ASCP) Processed and screened at [facility] CLINICAL HISTORY: Previous normal pap Date of Last Pap: 12/15/09, Papanicolaou Test Limitations: ??Cervical cytology is a screening test with limited sensitivity; regular screening is critical for cancer prevention; Pap tests are primarily effective for the diagnosis/preventi on of squamous cell carcinoma, not adenocarcinomas or other cancers. TESTING LAB LOCATION: [facility] [address] [address] [place], [place] ??[address] COLLECTION SITE: Client: ??[facility] Location: [facility] (R) COPATH Cytologic material (specimen) 08/02/2011 9:26 AM CDT 08/02/2011 2:05 PM CDT Adolfo Chau PA-C LAB - OP TIME CLINICAL SPECIMEN [facility] * HIV 1 & 2, SCREEN (05/03/2009 9:03 AM AUTOMATIC STEEL TIE ADJUSTER) HIV 1&2 Antibody Negative [facility]G [facility] 05/03/2009 9:03 AM AUTOMATIC STEEL TIE ADJUSTER 05/03/2009 9:08 AM AUTOMATIC STEEL TIE ADJUSTER Earl Issa MD LABORATORY [facility] from Last 3 Months or Most Recently Relevant to Health Maintenance Care Teams Associate Buyer Relationship Specialty Start Date End Date Adolfo Chau PA-C [address] [place], [place] [id number] PCP - General Family Practice 10/31/10
--- OUTSIDE RECORDS SUMMARY | 2024-02-19 20:19 | XMS_ITS | Encounter Summary ---
Author Organization [facility] Address [address] [place] [address]. [place] [address] Care Team Providers Care Photograph Enlarger Name Role Phone Mari Chau PA-C Primary Care Pr ovider Mari Chau PA-C Unavailable Mari Chau PA-C Unavailable Reason for Visit * Reason Onset Date Comments MyChart Communication 02/16/2016 Encounter Details Date Type Department Care Team (Latest Contact Info) Description 02/16/2016 MyC Medical Advice [facility] [id number] [place] [phone] Mari Chau PA-C [id number] [place] [address] MyChart Communication Social History Tobacco Use [...] on filedocumented in this encounter Care Teams Photograph Enlarger Relationship Specialty Start Date End Date Mari Chau PA-C [address] [place] [address] PCP - General Family Practice 10/31/10 Mari Chau PA-C [address] [place] [address] PCP - Assigned PCP 11/05/10 07/08/18 Mari Chau PA-C [address] [place] [address] Assigned PCP 02/07/12 02/14/19 documented as of this encounter
--- OUTSIDE RECORDS SUMMARY | 2024-02-19 20:19 | XMS_ITS | Encounter Summary ---
Author Organization [facility] Address [address] [place] [address]. [place] [address] Care Team Providers Care Mess Attendant Crew Name Role Phone Mari Chau PA-C Primary Care Pr ovider Mari Chau PA-C Unavailable Mari Chau PA-C Unavailable Encounter Details Date Type Department Care Team (Late st Contact Info) Description 05/17/2015 MyC Medical Advice [address] [phone] Jess Wild, CREDIT ASSOCIATE Social History Tobacco Use Types Packs/Day Years [...] on filedocumented in this encounter Care Teams Mess Attendant Crew Relationship Specialty Start Date End Date Mari Chau PA-C [address] [place] [address] PCP - General Family Practice 10/31/10 Mari Chau PA-C [address] [place] [address] PCP - Assigned PCP 11/05/10 07/08/18 Mari Chau PA-C [address] [place] [address] Assigned PCP 02/07/12 02/14/19 documented as of this encounter
--- OUTSIDE RECORDS SUMMARY | 2024-02-19 20:20 | XMS_ITS | Data Portability ---
Author Organization [place] [facility] Address [address] [facility] [place] [address] Care Team Providers Care Babysitter Name Role Phone JUAN YADIRA Primary Care Provider CHAIM JAMES Referring Provider Assessment Encounter Date [...] Prevention Program and work with a health curriculum coach to help her integrate self management [...] to1 Arlene Watson PT, [address] [facility], [address], [place], [address], 4 21:49:32 Procedures None recorded. Surgeries None recorded. Imaging None recorded. Medication Orders None recorded. Patient Targets Encounter Date Encounter Id Patient Goals Patient Target Last Modified By Organization Details Last Modified Time detention goals (to be met in 12 weeks):*Tristan [...] By Organization Details Last Modified Time 09/10/2023 [id number] Self Care for TMD Not avai lable 09/10/2023 21:49:32 oral appliance preparation* Not available 09/10/2023 21:49:33 Three Jaw Exercises Not available 09/10/2023 21:49:32 trigger point injection information Not available 09/10/2023 21:49:32 Contributing factors identified at today's appointment include: postural factors, daytime clenching, sleep bruxism, oral habits, tension and difficulty relaxing. Not available 09/10/2023 21:48:19 09/19/2023 [id number] Total treatment time minutes today = 45 [...] Name Description Value Unit Range Abnormal Flag Note LastModifiedBy Organization Detail LastModifiedTime 09/10/19 24 09/10/2023 oral appli ance prepa ratio n* Type of appliance mandib ular stabil izatio n applia nce Not Available [facility] [address], [place], [address], 09/09/2023 09:20:56 Result Notes None recorded. Problems Name Problem SNOMED Code Status Onset Date Resolution Date Notes Provider Name and Address Organization Details Recorded Time Bilateral temporoma ndibular joint arthritis 482711397067 08832 Active 2023 Bilateral TMJ arthralgi a BAKARI Carty DDS,MS [address], [place], [address] , [facility] 13:54:17 Myofascia l pain 247268407 Active 2023 masticato ry and cervical BAKARI Carty DDS,MS [address], [place], [address], [facility] 4 13:54:24 Sleep related bruxism 186642880 Active 2023 BAKARI NASCIMENT O, DDS,MS [address], [place], [address], [facility] 4 13:38:36 Chronic pain 99490713 Active 2023 BAKARI NASCIMENT O, DDS,MS [address], [place], [address], [facility] 4 13:38:43 Bilateral referred otalgia of ears 181771043135 9106 Active 2023 BAKARI NASCIMENT Carloz DDS,MS [address], [place], [address], [facility] 4 13:53:40 Periodont al ligament strain 805651395 Active 2023 BAKARI NASCIMENT Carloz DDS,MS [address], [place], [address], [facility] 4 13:54:39 Episodic tension-t ype headache 126113611 Active 2023 BAKARI NASCIMENT Carloz DDS,MS [address], [place], [address], [facility] 4 13:58:30 Tinnitus 57981010 Active 2023 Arlene Watson DPT [address] [facility] [address], [place], [address], [facility] 4 12:20:39 Problem Notes None recorded. Procedures Surgical History Date Name Laterality Status Provider Name and Address Organization Details Recorded Time 09/19/19 24 78840 - PT Eval High Complexity completed Arlene Watson DPT [address] [facility] [address], [place], [address], [place] [facility] 09/19/2023 12:19:52 09/19/19 24 30097: Self Care/Home Management Training completed Arlene Watson DPT [address] [facility] [address], [place], [address], [facility] 09/19/2023 20:14:50 09/19/19 24 31455: Therapeutic Exercise completed Arlene Watson DPT [address] [facility] [address], [place], [address], [facility] 09/19/2023 20:13:51 09/19/19 24 98008: Manual Therapy completed Arlene Watson DPT [address] [facility] [address], [place], [address], [facility] 09/19/2023 20:13:58 04/12/20 22 Maintenance Mechanic Engine Surgery completed Barbara Freed [facility] 09/10/2023 10:56:28 [...] Updated DateTime 09/10/2023 160.02 cm 30.5 kg/m2 85215.89 g 107 mm[Hg] 72 mm[Hg] Barbara Freed [facility] 10:59:04 Social History Question Answer Notes LastModified by Organizat ion Details LastModified Time Tobacco Smoking Status Former Smoker Barbara chavez [facility] 09/10/2023 10:56:37 What Is Your Level Of Alcohol Consumption? None Information not available 09/10/2023 What Is Your Level Of Caffeine Consumption? Occasional [email or web address] Information not available 09/10/2023 Are You Currently Employed? Yes [email or web address] Information not available 09/10/2023 What Type Of Diet Are You Following? [employer] , Under 2000 Calories A Day Melissa Fernandez [email or web address] Information not available 09/10/2023 Do You Reside In Or Have You Traveled To An Area Where Ebola Virus Transmission Is Active? No [email or web address] Information not available 09/10/2023 What Is The Highest Grade Or Level Of School You Have Completed Or The Highest Degree You Have Received? 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 (0=no Pain, 10=pain As Bad As You Can Imagine) 9 Information not available 09/10/2023 What Number Best Describes How, During The Past Week, Pain Has Interfered With Your Enjoyment Of Life? (0=does Not Interfere, 10= Completely Interferes) 5 [email or web address] Information not available 09/10/2023 What Number Best Describes How, During The Past Week, Pain Has Interfered With Your General Activity? (0=does Not Interfere, 10=completely Interferes) 9 [email or web address] Information not available 09/10/2023 How Did Primary Problem Begin? 20+ Years Ago, I Was Getting The Worst Headaches/zeyad niranjan. Than My Dentist Saw Grinding Patterns On My Teeth. I Have Been Wearing A Mouthguard At Night Since [email or web address] Information not available 09/10/2023 How Many Children Do You Have? 2 [email or web address] Information not available 09/10/2023 What Is Your Relationship Status? [email or web address] Information not available 09/10/2023 Do You Feel Stressed (tense, Restless, Nervous, Or Anxious, Or Unable To Sleep At Night)? [id number] [email or web address] Information not available 09/10/2023 Do You Use Any Illicit Or Recreational Drugs? No Information not available 09/10/2023 Sex: Unknown Functional Status Question Answer Note LastModified by Organization D etails LastModified Time What is your exercise level? Moderate [email or web address] Information not available 09/10/2023 Mental Status None recorded. Family History Relationship Description Onset Age of this Age Resolved Age Notes LastModified by Organization Details LastModified Time Father Sleep apnea [email or web address] Not avail able 09/10/2023 11:01:30 Father Saud yang [email or web address] Not available 2023 11:01:53 Son Sleep apnea [email or web address] Not avail able 09/10/2023 11:01:30 Mother Saud yang [email or web address] Not available 2023 11:01:53 Maternal Grandfather Family history of malignant neoplasm [email or web address] Not available 2023 11:02:42 Paternal Grandmother Family history of malignant neoplasm [email or web address] Not available 2023 11:02:42 Medical History Condition Response Thyroid Problems Y Muscle, Joint, or Bone Problems Y Acid Reflux (GERD) Y Gynecological HistoryNo gynecological history recorded. Obstetrics History GPAL:G 0 P 0 0 0 0 Past Encounters Encounter ID Performer Location Encounter Start Date Encounter Closed Date Diagnosis/Indication Diagnosis SNOMED-CT Code Diagnosis ICD10 Code [id number] BAKARI MANJARREZ DDS,MS Abril littlejohn [address] [place] [id number] 09/10/2023 10:43:07 09/10/2023 12:20:54 Myofascial pain 866846107 M79.11 M79.12 Bilateral temporomandibular joint arthritis 1330977988 8370331 M26.643 Sleep related bruxism 27 0169923 G47.63 Chronic pain 73764498 G8 9.29 Bilateral referred otalgia of ears 9221354136 825091 H92.03 Periodonta l ligament strain 963827963 K05.5 Episodic t ension-type headache 166081025 G44.219 [id number] ERMIAS Flynn [address] [place] [id number] 09/19/2023 18:54:57 09/19/2023 20:16:24 Bilateral referred otalgia of ears 9154224463 415031 H92.03 Bilateral temporomandibular joint arthritis 3655456138 0350990 M26.643 Chronic pain 85823885 G8 9.29 Episodic t ension-type headache 114355046 G44.219 Myofascial pain 67690100 9 M79.11 M79.12 Periodonta l ligament strain 127858775 K05.5 Sleep related bruxism 27 8920030 G47.63 Tinnitus 97983325 H93.13 Health Concerns Section Related Observation LastModified by Organization Detai ls LastModified Time None Recorded Concern Status LastModified by Organization Details LastModified Time None Recorded Advance Directives Directive None Recorded Payers Encounter Date Sequence Insurance Name Policy Number Policy Miranda Covered Member ID Miranda Member ID Guarantor Name 09/10/2023 1 [place] [id number] 1 Bella N Aarre [id number] Bella N Aarre 09/19/2023 1 [place] [id number] Bella N Aarre [id number] Bella N Aarre Notes Date Note Type Note Provider Name and Address Organization Details Recorded Time 09/10/2023 text/html HPI Notes: gener al HPI for jaw, face, TMD pain Reported [...] weakness Prior Tests: CT maxillofacial Prior Treatment: aquatics lifeguard/oral appliance/splint; physical therapy Prior opinion primary care [...] the wait list for another PSG at [facility]. She feels generalized muscle tightness down her neck, shoulders and arms to the point she has no strength to cloth picker things - like a gallon of [...] history of trauma. BAKARI MANJARREZ DDS,MS [address] [facility] [address], [place], [address], [facility] 09/10/2023 [...] migraines reported by pt - relieved with senior living splint use. *Clenching *Bruxism *Stress *Medications: *Stimulant use: caffeine, former smoker *Medical/Surgical Hx: gynecological surgery 2021, GERD, thyroid dysfunction. Goiter. Lateral epicondylitis, back pain. Covid - ? long covid. Denies: numbness, tingling, vision changes, swallowing difficulty. Previous Treatment: chiropractic, PT, dry needling. Pending sleep consult at [place], pt reports 2 previous studies were negative. Oral splint effective for reducing migraines per pt. Doing scream face, TUTA. Patient Goals include: treat TMD to possibly help with fatigue/tension. Patient Reported Outcome JFLS-8 (out of 80): 09/18=12 Arlene Watson DPT [address] [facility] [address], [place], [address], [place] [facility] 09/19/2023 20:19:54 OBGyn Episode No OBEpisode recorded.
--- OUTSIDE RECORDS SUMMARY | 2024-02-19 20:20 | XMS_ITS | Encounter Summary ---
Author Organization [facility] Address [address] [place] [address]. [place] [address] Care Team Providers Care Presiding Steward Name Role Phone Steph Venegas MD Primary Care Provid er Mari Chau PA-C Primary Care Pr ovider Mari Chau PA-C Unavailable Mari Chau PA-C Unavailable Encounter Details Date Type Department Care Team (Late st Contact Info) Description 11/04/2009 [facility] [address] [place] [address] Antonio Louis MD NO INFO [...] Primary documented in this encounter Care Teams Presiding Steward Relationship Specialty Start Date End Date Steph Venegas MD [address] [place] [address] PCP - General 03/27/04 10/30/10 Mari Chau PA-C [address] [place] [address] PCP - General Family Practice 10/31/10 Mari Chau PA-C [address] [place] [address] PCP - Assigned PCP 11/05/10 07/08/18 Mari Chau PA-C [address] [place] [address] Assigned PCP 02/07/12 02/14/19 documented as of this encounter
--- OUTSIDE RECORDS SUMMARY | 2024-02-19 20:20 | XMS_ITS | Encounter Summary ---
Author Organization [facility] Address [address] [place] [address]. [place] [address] Care Team Providers Care Hostess Cashier Name Role Phone Mari hCau PA-C Primary Care Pr ovider Mari Chau PA-C Unavailable Mari Chau PA-C Unavailable Reason for Visit * Reason Onset Date Comments Referral 12/12/2012 Encounter Details Date Type Department Care Team (Late st Contact Info) Description 12/12/[address] [facility] [address] [place] [phone] Mari Chau PA-C [id number] [place] [address] Referral Social History Tobacco Use Types [...] for this clinic and gave info for [facility] clinic. If she needs a referral Mari [...] phone number to reach pt at is: [phone] Ok to leave a message with medical info? yes Pharmacy Information:none Sylvie Tsai, Transaction Coordinator documented in this encounter Plan of Treatment Not on file documented as of this encounter Visit Diagnoses Not on filedocumented in this encounter Care Teams Hostess Cashier Relationship Specialty Start Date End Date Mari Chau PA-C [address] [place] [address] PCP - General Family Practice 10/31/10 Mari Chau PA-C [address] [place] [address] PCP - Assigned PCP 11/05/10 07/08/18 Mari Chau PA-C [address] [place] [address] Assigned PCP 02/07/12 02/14/19 documented as of this encounter
--- OUTSIDE RECORDS SUMMARY | 2024-02-19 20:20 | XMS_ITS | Encounter Summary ---
Author Organization [facility] Address [address] [place] [address]. [place] [address] Care Team Providers Care User Interface Artist Name Role Phone Mari Chau PA-C Primary Care Pr ovider Mari Chau PA-C Unavailable Mari Chau PA-C Unavailable Reason for Visit * Reason Onset Date Comments MyChart Communication 12/08/2013 Encounter Details Date Type Department Care Team (Latest Contact Info) Description 12/08/2013 MyC Medical Advice [facility] [address] [place] [phone] Mrai Chau PA-C [id number] [place] [address] MyChart Communication Social History Tobacco Use [...] on filedocumented in this encounter Care Teams User Interface Artist Relationship Specialty Start Date End Date Mari Chau PA-C [address] [place] [address] PCP - General Family Practice 10/31/10 Mari Chau PA-C [address] [place] [address] PCP - Assigned PCP 11/05/10 07/08/18 Mari Chau PA-C [address] [place] [address] Assigned PCP 02/07/12 02/14/19 documented as of this encounter
== END 2024-02-19 20:15 | disposition home or self-care (01) ==
LOC: SLEEP 20:17
PROVIDERS: PCP Emergency Medicine; Visit Provider Emergency Medicine
DX: R53.82 Chronic fatigue, unspecified (principal); D50.9 Iron deficiency anemia, unspecified
CPT/HCPCS: 95805; 95810

== ENCOUNTER 2024-03-03 08:54 | Outpatient (CLI) | payer BC, SELFPAY ==
--- OUTSIDE RECORDS SUMMARY | 2024-03-04 08:18 | XMS_ITS | Clinical Summary ---
Author Organization [facility] Address [address] [place] [address]. [place] [address] Care Team Providers Care Learning Support Specialist Name Role Phone Adolfo Chau PA-C Primary Care Pr ovider Allergies Active Allergy Reactions Criticality Noted Date Comments Erythromycin 08/31/2002 Seasonal Allergies 11/16/2013 Medications CRANBERRY daily Active UNABLE TO FIND MEDICATION NAME: biocell collagen Active UNABLE TO FIND MEDICATION NAME: fluconauzole Active UNABLE TO FIND MEDICATION NAME: clobetasol ointment Active clotrimazole-be tamethasone (LOTRISONE) creamIndication s:Acute vaginitis Apply topically 2 times daily 15 g 1 6 Active fluconazole (DIFLUCAN) 150 MG tabletIndicatio ns:Acute vaginitis Take 1 tablet (150 mg) by mouth every 3 days 4 tablet 0 6 Active Active Problems Problem Noted Date Diagnosed Date 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 Provider to [...] School Help Needed Not on file 02/10 Comments No Sex and Gender Information Value Date Recorded Sex Assigned at Female 09/12/2020 11:48 AM CDT Legal Sex Female 4:17 AM FLANGE TURNER Gender Identity Female 09/12/2020 11:48 AM CDT Sexual Orientation Straight 09/12/2020 11 :48 AM CDT Last Filed Vital Signs Vital Sign Reading Time Taken Comments Blood Pressure 110/70 02/09/2016 2:24 PM CDT Pulse 78 02/09/2016 2:24 PM CDT Temperature 36.9 ??C (98.5 ??F) 02/09/2016 2:24 PM CD T Respiratory Rate 16 04/08/2013 10:19 AM FLANGE TURNER Oxygen Saturation 98% 02/09/2016 2:24 PM CDT [...] per calendar year) 2023 COVID-19 Vaccine ( season) 2024 06/06/2021, 09/16/2020, 08/26/2020 DTAP/TDAP/TD IMMUNIZATION [...] 1 & 2 ANTIBODY Routine 9:03 AM FLANGE TURNER Supervision of Other Normal from Last 3 Months or Most Recently Relevant to Health Maintenance Results * (ABNORMAL) Lipid panel reflex to direct LDL (11/16/2013 8:35 AM CDT) Cholesterol 145 <200 mg/dL [facility] Comment: LDL Cholesterol is the primary guide to therapy. The NCEP recommends further evaluation of: patients with cholesterol greater than 200 mg/dL if additional risk factors are present, cholesterol greater than 240 mg/dL, triglycerides greater than 150 mg/dL, or HDL less than 40 mg/dL. Triglycerides 60 0 - 150 mg/dL [facility] HDL Cholesterol 48(L) >50 mg/dL [facility] LDL Cholesterol Calculated 85 0 - 129 mg/dL [facility] Comment: LDL Cholesterol is the primary guide to therapy: LDL-cholesterol goal in high risk patients is <100 mg/dL and in very high risk patients is <70 mg/dL. VLDL-Cholesterol 12 0 - 30 mg/dL [facility] Cholesterol/HDL Ratio 3.0 0.0 - 5.0 [facility] Blood specimen (specimen) 11/16/2013 8:35 AM CDT 11/16/2013 8:40 AM CDT us Adolfo Chau PA-C LAB - BLOOD ORDE PILLO Final Result [facility] [address] [place] [address] * Comprehensive metabolic panel (11/16/2013 8:35 AM CDT) Sodium 141 133 - 144 mmol/L [facility] Potassium 4.0 3.4 - 5.3 mmol/L [facility] Chloride 103 94 - 109 mmol/L [facility] Carbon Dioxide 26 20 - 32 mmol/L [facility] Anion Gap 11 6 - 17 mmol/L [facility] Glucose 84 60 - 99 mg/dL [facility] Urea Nitrogen 15 5 - 24 mg/dL [facility] Creatinine 0.79 0.52 - 1.04 mg/dL [facility] GFR Estimate 82 >60 mL/min/1.7 m2 [facility] GFR Estimate If Black >90 >60 mL/min/1.7 m2 [facility] Calcium 9.0 8.5 - 10.4 mg/dL [facility] Bilirubin Total 0.7 0.2 - 1.3 mg/dL [facility] Albumin 4.2 3.9 - 5.1 g/dL [facility] Protein Total 7.1 6.8 - 8.8 g/dL [facility] Alkaline Phosphatase 40 40 - 150 U/L [facility] ALT 25 0 - 50 U/L [facility] AST 23 0 - 45 U/L [facility] Blood specimen (specimen) 11/16/2013 8:35 AM CDT 11/16/2013 8:40 AM CDT us Adolfo hCau PA-C LAB - BLOOD PITER [facility] Final Result Performing Organization Address City/State/[facility] Co de Phone Number [facility] [address] [place] [address] * PAP IMAGED THIN LAYER SCREEN (08/02/2011 9:26 AM CDT) PAP TANYA Rogers Report Patient Name: BELLA COFFEY MR#: [id number] Specimen #: [id number] Collected: 08/02/2011 Received: 08/02/2011 Reported: 08/03/2011 14:07 [...] MAXIMILIAN Moise (ASCP) Processed and screened at [facility] CLINICAL HISTORY: Previous normal pap Date of Last Pap: 12/15/09, Papanicolaou Test Limitations: ??Cervical cytology is a screening test with limited sensitivity; regular screening is critical for cancer prevention; Pap tests are primarily effective for the diagnosis/preventi on of squamous cell carcinoma, not adenocarcinomas or other cancers. TESTING LAB LOCATION: [address] ??[address] COLLECTION SITE: Client: ??[facility] Location: [facility] ([facility] Cytologic material (specimen) 08/02/2011 9:26 AM CDT 08/02/2011 2:05 PM CDT Adolfo Chau PA-C LAB - OPTIME CLI NICAL SPECIMEN Final Result Performing Organization Address City/[facility]/ZIP Co de Phone Number [facility] * HIV 1 & 2, SCREEN (05/03/2009 9:03 AM FLANGE TURNER) HIV 1&2 Antibody Negative NEG [facility] 05/03/2009 9:03 AM FLANGE TURNER 05/03/2009 9:08 AM FLANGE TURNER Earl Issa MD LABORATORY Final Result Performing Organization Address City/[facility]/ZIP Co de Phone Number [facility] [address] [place] [address] from Last 3 Months or Most Recently Relevant to Health Maintenance Insurance BCBS OUT OF STATE Care Teams Learning Support Specialist Relationship Specialty Start Date End Date Adolfo Chau PA-C [address] [place] [address] PCP - General Family Practice 10/31/10
--- OUTSIDE RECORDS SUMMARY | 2024-03-04 08:18 | XMS_ITS | Referral Summary ---
Author Organization [facility] Address [address] [place] [address]. [place] [address] Care Team Providers Care Diamond Picker Name Role Phone Adolfo Chau PA-C Primary [...] AM CDT Legal Sex Female 4:17 AM MATERIAL HANDLER 2ND SHIFT Gender Identity Female 09/12/2020 11:48 AM CDT Sexual Orientation Straight 09/12/2020 11 :48 AM CDT Last Filed Vital Signs Vital Sign Reading Time Taken Comments Blood Pressure 110/70 02/09/2016 2:24 PM CDT Pulse 78 02/09/2016 2:24 PM CDT Temperature 36.9 ??C (98.5 ??F) 02/09/2016 2:24 PM CD T Respiratory Rate 16 04/08/2013 10:19 AM MATERIAL HANDLER 2ND SHIFT Oxygen Saturation 98% 02/09/2016 2:24 PM CDT [...] HCL HIV 1 & 2 ANTIBODY Routine 12/29/200 9 9:03 AM MATERIAL HANDLER 2ND SHIFT Supervision of Other Normal from Last 3 Months or Most Recently Relevant to Health Maintenance Results * (ABNORMAL) Lipid panel reflex to direct LDL (11/16/2013 8:35 AM CDT) Cholesterol 145 <200 mg/dL [facility] Comment: LDL Cholesterol is the primary guide to therapy. The NCEP recommends further evaluation of: patients with cholesterol greater than 200 mg/dL if additional risk factors are present, cholesterol greater than 240 mg/dL, triglycerides greater than 150 mg/dL, or HDL less than 40 mg/dL. Triglycerides 60 0 - 150 mg/dL [facility] HDL Cholesterol 48(L) >50 mg/dL [facility] LDL Cholesterol Calculated 85 0 - 129 mg/dL [facility] Comment: LDL Cholesterol is the primary guide to therapy: LDL-cholesterol goal in high risk patients is <100 mg/dL and in very high risk patients is <70 mg/dL. VLDL-Cholesterol 12 0 - 30 mg/dL [facility] Cholesterol/HDL Ratio 3.0 0.0 - 5.0 [facility] Blood specimen (specimen) 11/16/2013 8:35 AM CDT 11/16/2013 8:40 AM CDT Adolfo Chau PA-C LAB - BLOOD PITER FERRO Final Result [facility] [address] [place] [address] * Comprehensive metabolic panel (11/16/2013 8:35 AM CDT) Sodium 141 133 - 144 mmol/L [facility] Potassium 4.0 3.4 - 5.3 mmol/L [facility] Chloride 103 94 - 109 mmol/L [facility] Carbon Dioxide 26 20 - 32 mmol/L [facility] Anion Gap 11 6 - 17 mmol/L [facility] Glucose 84 60 - 99 mg/dL [facility] Urea Nitrogen 15 5 - 24 mg/dL [facility] Creatinine 0.79 0.52 - 1.04 mg/dL [facility] GFR Estimate 82 >60 mL/min/1.7 m2 [facility] GFR Estimate If Black >90 >60 mL/min/1.7 m2 [facility] Calcium 9.0 8.5 - 10.4 mg/dL [facility] Bilirubin Total 0.7 0.2 - 1.3 mg/dL [facility] Albumin 4.2 3.9 - 5.1 g/dL [facility] Protein Total 7.1 6.8 - 8.8 g/dL [facility] Alkaline Phosphatase 40 40 - 150 U/L [facility] ALT 25 0 - 50 U/L [facility] AST 23 0 - 45 U/L [facility] Blood specimen (specimen) 11/16/2013 8:35 AM CDT 11/16/2013 8:40 AM CDT Adolfo Chau PA-C LAB - BLOOD PITER [facility] Final Result [facility] [address] [place] [address] * PAP IMAGED THIN LAYER SCREEN (08/02/2011 9:26 AM CDT) PAP TANYA Rogers Report Patient Name: BELLA COFFEY MR#: [id number] Specimen #: [id number] Collected: 08/02/2011 Received: 08/02/2011 Reported: 08/03/2011 14:07 [...] Moise (ASCP) Processed and screened at [facility], [facility] CLINICAL HISTORY: Previous normal pap Date of Last Pap: 12/15/09, Papanicolaou Test Limitations: ??Cervical cytology is a screening test with limited sensitivity; regular screening is critical for cancer prevention; Pap tests are primarily effective for the diagnosis/preventi on of squamous cell carcinoma, not adenocarcinomas or other cancers. TESTING LAB LOCATION: [facility] [address], [place] ??[address] COLLECTION SITE: Client: ??[facility] Location: [facility] ([facility]) [facility] Cytologic material (specimen) 08/02/2011 9:26 AM CDT 08/02/2011 2:05 PM CDT Adolfo Chau PA-C LAB - OPTIME CLI NICAL SPECIMEN Final Result [facility] * HIV 1 & 2, SCREEN (05/03/2009 9:03 AM MATERIAL HANDLER 2ND SHIFT) HIV 1&2 Antibody Negative NEG [facility] 05/03/2009 9:03 AM MATERIAL HANDLER 2ND SHIFT 05/03/2009 9:08 AM MATERIAL HANDLER 2ND SHIFT Earl Issa MD LABORATORY Final Result [facility] [address] [place] [address] from Last 3 Months or Most Recently Relevant to Health Maintenance Insurance BCBS OUT OF STATE Care Teams Diamond Picker Relationship Specialty Start Date End Date Adolfo Chau PA-C [address] [place], [place] [id number] PCP - General Family Practice 10/31/10
--- OUTSIDE RECORDS SUMMARY | 2024-03-04 08:18 | XMS_ITS | Encounter Summary ---
Author Organization [facility] Address [address] [place] [address]. [place] [address] Care Team Providers Care Weight Inspector Name Role Phone Mari Chau PA-C Primary Care Pr ovider Mari Chau PA-C Unavailable Mari Chau PA-C Unavailable Reason for Visit * Reason Onset Date Comments Outreach 01/09/2017 phs att 1 Encounter Details Date Type Department Care Team (Late st Contact Info) Description 01/09/2017 Telephone [facility] [address] [place] [address] Mari Chau PA-C [address] [place] [address] Outreach (phs att 1) Social History Tobacco Use Types Packs/Day Years Used Date Smoking Tobacco: Former Cigarettes 0.5 3 1 - 05/04/2006 Smokeless Tobacco: Never Comments:1/2 pp week Alcohol Use Standard Drinks/Week Comments No 0 (1 standard drink = 0.6 oz pur e alcohol) rare Comments No Sex and Gender Information Value Date Recorded Sex Assigned at Female 09/12/2020 11:48 AM CDT Legal Sex Female 4:17 AM WOMEN'S STUDIES PROFESSOR Gender Identity Female 09/12/2020 11:48 AM CDT Sexual Orientation Straight 09/12/2020 11 :48 AM CDT documented as of this encounter Miscellaneous Notes * Telephone Encounter - Jazmine Dumont - 01/09/2017 5:11 PM CDT 01/09/2017 Call Regarding Preventive Health Screening Cervical/PAP and Physical Attempt 1 Message on voicemail Comments: Outreach Take Down Sorter AT documented in this encounter Plan of Treatment Not on file documented as of this encounter Visit Diagnoses Not on filedocumented in this encounter Care Teams Weight Inspector Relationship Specialty Start Date End Date Mari Chau PA-C [address] [place] [address] PCP - General Family Practice 10/31/10 Mari Chau PA-C [address] [place] [address] PCP - Assigned PCP 11/05/10 07/08/18 Mari Chau PA-C [address] [place] [address] Assigned PCP 02/07/12 02/14/19 documented as of this encounter
--- OUTSIDE RECORDS SUMMARY | 2024-03-04 08:19 | XMS_ITS | Encounter Summary ---
Author Organization [facility] Address [address] [place] [address]. [place] [address] Care Team Providers Care Nurse Care Manager Name Role Phone Mari Chau PA-C Primary Care Pr ovider Mari Chau PA-C Unavailable Mari Chau PA-C Unavailable Reason for Visit * Reason Onset Date Comments Referral 12/12/2012 Encounter Details Date Type Department Care Team (Late st Contact Info) Description 12/12/2012 Telephone [facility] [id number] [place] [phone] Mari Chau PA-C [id number] [place] [address] Referral Social History Tobacco Use Types [...] AM CDT Legal Sex Female 4:17 AM ADMINISTRATIVE RECEPTIONIST Gender Identity Female 09/12/2020 11:48 AM CDT [...] for this clinic and gave info for Dc clinic. If she needs a referral Mari [...] phone number to reach pt at is: [phone] Ok to leave a message with medical info? yes Pharmacy Information:none Sylvie Tsai Breakfast Attendant documented in this encounter Plan of Treatment Not on file documented as of this encounter Visit Diagnoses Not on filedocumented in this encounter Care Teams Nurse Care Manager Relationship Specialty Start Date End Date Mari Chau PA-C [address] [place] [address] PCP - General Family Practice 10/31/10 Mari Chau PA-C [address] [place] [address] PCP - Assigned PCP 11/05/10 07/08/18 Mari Chau PA-C [address] [place] [address] Assigned PCP 02/07/12 02/14/19 documented as of this encounter
--- OUTSIDE RECORDS SUMMARY | 2024-03-04 08:19 | XMS_ITS | Encounter Summary ---
Author Organization [facility] Address [address] [place] [address]. [place] [address] Care Team Providers Care Special Day Class Teacher Name Role Phone Mari Chau PA-C Primary Care Pr ovider Mari Chau PA-C Unavailable Mari Chau PA-C Unavailable Reason for Visit * Reason Onset Date Comments MyChart Communication 12/08/2013 Encounter Details Date Type Department Care Team (Latest Contact Info) Description 12/08/2013 MyC Medical Advice [facility] [address] [place] [phone] Mari Chau PA-C [id number] [place] [address] MyChart Communication Social History Tobacco Use [...] AM CDT Legal Sex Female 4:17 AM MEDICAL RECORD LIBRARIAN Gender Identity Female 09/12/2020 11:48 AM CDT Sexual Orientation Straight 09/12/2020 11 :48 AM CDT documented as of this encounter Plan of Treatment Not on file documented as of this encounter Visit Diagnoses Not on filedocumented in this encounter Care Teams Special Day Class Teacher Relationship Specialty Start Date End Date Mari Chau PA-C [address] [place] [address] PCP - General Family Practice 10/31/10 Mari Chau PA-C [address] [place] [address] PCP - Assigned PCP 11/05/10 07/08/18 Mari Chau PA-C [address] [place] [address] Assigned PCP 02/07/12 02/14/19 documented as of this encounter
--- OUTSIDE RECORDS SUMMARY | 2024-03-04 08:19 | XMS_ITS | Encounter Summary ---
Author Organization [facility] Address [address] [place] [address]. [place] [address] Care Team Providers Care Set Up Operator Name Role Phone Mari Chau PA-C Primary Care Pr ovider Mari Chau PA-C Unavailable Mari Chau PA-C Unavailable Reason for Visit * Reason Onset Date Comments MyChart Communication 02/16/2016 Encounter Details Date Type Department Care Team (Latest Contact Info) Description 02/16/2016 MyC Medical Advice [facility] [id number] [place] [phone] Mari Chau PA-C [phone] [place] [address] MyChart Communication Social History Tobacco Use [...] AM CDT Legal Sex Female 4:17 AM CUSTOMER SOLUTIONS SUPERVISOR Gender Identity Female 09/12/2020 11:48 AM CDT Sexual Orientation Straight 09/12/2020 11 :48 AM CDT documented as of this encounter Plan of Treatment Not on file documented as of this encounter Visit Diagnoses Not on filedocumented in this encounter Care Teams Set Up Operator Relationship Specialty Start Date End Date Mari Chau PA-C [address] [place] [address] PCP - General Family Practice 10/31/10 Mari Chau PA-C [address] [place] [address] PCP - Assigned PCP 11/05/10 07/08/18 Mari Chau PA-C [address] [place] [address] Assigned PCP 02/07/12 02/14/19 documented as of this encounter
--- OUTSIDE RECORDS SUMMARY | 2024-03-04 08:19 | XMS_ITS | Encounter Summary ---
Author Organization [facility] Address [address] [place] [address]. [place] [address] Care Team Providers Care Front Desk Administrator Name Role Phone Mari Chau PA-C Primary Care Pr ovider Mari Chau PA-C Unavailable Mari Chau PA-C Unavailable Encounter Details Date Type Department Care Team (Late st Contact Info) Description 06/24/2014 MyC Medical Advice [address] [phone] Tamiko Llamas, DO [address] [facility] [address] [place] [address] Fatigue (Primary Dx) Social History [...] AM CDT Legal Sex Female 4:17 AM DECALER Gender Identity Female 09/12/2020 11:48 AM CDT Sexual Orientation Straight 09/12/2020 11 :48 AM CDT documented as of this encounter Plan of Treatment Not on file documented as of this encounter Visit Diagnoses Diagnosis Fatigue- Primary Other malaise and fatigue documented in this encounter Care Teams Front Desk Administrator Relationship Specialty Start Date End Date Mari Chau PA-C [address] [place] [address] PCP - General Family Practice 10/31/10 Mari Chau PA-C [address] [place] [address] PCP - Assigned PCP 11/05/10 07/08/18 Mari Chau PA-C [address] [place] [address] Assigned PCP 02/07/12 02/14/19 documented as of this encounter
--- OUTSIDE RECORDS SUMMARY | 2024-03-04 08:19 | XMS_ITS | Encounter Summary ---
Author Organization [facility] Address [address] [place] [address]. [place] [address] Care Team Providers Care Produce Specialist Name Role Phone Mari Chau PA-C Primary Care Pr ovider Mari Chau PA-C Unavailable Mari Chau PA-C Unavailable Encounter Details Date Type Department Care Team (Late st Contact Info) Description 05/17/2015 MyC Medical Advice [address] [phone] Jess Wild, REGIONAL REFRIGERATED CDL TRUCK DRIVER Social History Tobacco Use Types Packs/Day Years Used Date Smoking Tobacco: Former Cigarettes 0.5 3 1 - 05/04/2006 Smokeless Tobacco: Never Comments:1/2 pp week Alcohol Use Standard Drinks/Week Comments Yes 0 (1 standard drink = 0.6 oz pur e alcohol) rare Comments No Sex and Gender Information Value Date Recorded Sex Assigned at Female 09/12/2020 11:48 AM CDT Legal Sex Female 4:17 AM FINE ARTS CHAIR Gender Identity Female 09/12/2020 11:48 AM CDT Sexual Orientation Straight 09/12/2020 11 :48 AM CDT documented as of this encounter Plan of Treatment Not on file documented as of this encounter Visit Diagnoses Not on filedocumented in this encounter Care Teams Produce Specialist Relationship Specialty Start Date End Date Mari Chau PA-C [address] [place] [address] PCP - General Family Practice 10/31/10 Mari [place] [address] [place] [address] PCP - Assigned PCP 11/05/10 07/08/18 Mari Chau [place] [address] [place] [address] Assigned PCP 02/07/12 02/14/19 documented as of this encounter
--- OUTSIDE RECORDS SUMMARY | 2024-03-04 08:19 | XMS_ITS | Encounter Summary ---
Author Organization [facility] Address [address] [place] [address]. [place] [address] Care Team Providers Care Radial Drill Press Operator For Plastic Name Role Phone Mari Chau PA-C Primary Care Pr ovider Mari Chau PA-C Unavailable Mari Chau PA-C Unavailable Reason for Visit * Reason Onset Date Comments MyChart Communication 02/15/2016 Encounter Details Date Type Department Care Team (Latest Contact Info) Description 02/15/2016 MyC Medical Advice [facility] [id number] [place] [phone] Mari Chau PA-C [id number] [place] [address] MyChart Communication Social History Tobacco Use [...] AM CDT Legal Sex Female 4:17 AM FACTORY CLERK Gender Identity Female 09/12/2020 11:48 AM CDT [...] on filedocumented in this encounter Care Teams Radial Drill Press Operator For Plastic Relationship Specialty Start Date End Date Mari Chau PA-C [address] [place] [address] PCP - General Family Practice 10/31/10 Mari Chau PA-C [address] [place] [address] PCP - Assigned PCP 11/05/10 07/08/18 Mari Chau PA-C [address] [place] [address] Assigned PCP 02/07/12 02/14/19 documented as of this encounter
--- OUTSIDE RECORDS SUMMARY | 2024-03-04 08:19 | XMS_ITS | Encounter Summary ---
Author Organization [facility] Address [address] [place] [address]. [place] [address] Care Team Providers Care Molding Plasterer Name Role Phone Mari Chau PA-C Primary Care Pr ovider Mari Chau PA-C Unavailable Mari Chau PA-C Unavailable Encounter Details Date Type Department Care Team (Late st Contact Info) Description 10/26/2016 MyC Medical Advice [address] [phone] Jess Wild, PROJECT CONSTRUCTION ASSISTANT MANAGER Social History Tobacco Use Types Packs/Day Years Used Date Smoking Tobacco: Former Cigarettes 0.5 3 1 - 05/04/2006 Smokeless Tobacco: Never Comments:1/2 pp week Alcohol Use Standard Drinks/Week Comments No 0 (1 standard drink = 0.6 oz pur e alcohol) rare Comments No Sex and Gender Information Value Date Recorded Sex Assigned at Female 09/12/2020 11:48 AM CDT Legal Sex Female 4:17 AM ELECTRONIC MAINTENANCE SUPERVISOR Gender Identity Female 09/12/2020 11:48 AM CDT Sexual Orientation Straight 09/12/2020 11 :48 AM CDT documented as of this encounter Plan of Treatment Not on file documented as of this encounter Visit Diagnoses Not on filedocumented in this encounter Care Teams Molding Plasterer Relationship Specialty Start Date End Date Mari Chau PA-C [address] [place] [address] PCP - General Family Practice 10/31/10 Mari Chau PA-C [address] [place] [address] PCP - Assigned PCP 11/05/10 07/08/18 Mari Chau PA-C [address] [place] [address] Assigned PCP 02/07/12 02/14/19 documented as of this encounter
--- OUTSIDE RECORDS SUMMARY | 2024-03-04 08:19 | XMS_ITS | Encounter Summary ---
Author Organization [facility] Address [address] [place] [address]. [place] [address] Care Team Providers Care Virtualization Engineer Name Role Phone Mari Chau PA-C Primary Care Pr ovider Mari Chau PA-C Unavailable Mari Chau PA-C Unavailable Encounter Details Date Type Department Care Team (Late st Contact Info) Description 03/04/2015 MyC Medical Advice [address] [phone] Jess Wild, FIELD EXAMINER Social History Tobacco Use Types Packs/Day Years Used Date Smoking Tobacco: Former Cigarettes 0.5 3 1 - 05/04/2006 Smokeless Tobacco: Never Comments:1/2 pp week Alcohol Use Standard Drinks/Week Comments Yes 0 (1 standard drink = 0.6 oz pur e alcohol) rare Comments No Sex and Gender Information Value Date Recorded Sex Assigned at Female 09/12/2020 11:48 AM CDT Legal Sex Female 4:17 AM MULTIMEDIA COORDINATOR Gender Identity Female 09/12/2020 11:48 AM CDT Sexual Orientation Straight 09/12/2020 11 :48 AM CDT documented as of this encounter Plan of Treatment Not on file documented as of this encounter Visit Diagnoses Not on filedocumented in this encounter Care Teams Virtualization Engineer Relationship Specialty Start Date End Date Mari Chau PA-C [address] [place] [address] PCP - General Family Practice 10/31/10 Mari Chau PA-C [address] [place] [address] PCP - Assigned PCP 11/05/10 07/08/18 Mari Chau PA-C [address] [place] [address] Assigned PCP 02/07/12 02/14/19 documented as of this encounter
--- OUTSIDE RECORDS SUMMARY | 2024-03-04 08:19 | XMS_ITS | Encounter Summary ---
Author Organization [facility] Address [address] [place] [address]. 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 Gender Identity Female 09/12/2020 11:48 AM CDT Sexual Orientation Straight 09/12/2020 11 :48 AM CDT documented as of this encounter Plan of Treatment Not on file documented as of this encounter Visit Diagnoses Not on filedocumented in this encounter Care Teams Executive Marketing Assistant Relationship Specialty Start Date End Date Mari Chau PA-C [address] [place] [address] PCP - General Family Practice 10/31/10 Mari Chau [place]-C [address] [place] [address] PCP - Assigned PCP 11/05/10 07/08/18 Mari Chau [place]-C [address] [place] [address] Assigned PCP 02/07/12 02/14/19 documented as of this encounter
--- OUTSIDE RECORDS SUMMARY | 2024-03-04 08:19 | XMS_ITS | Encounter Summary ---
Author Organization [facility] Address [address] [place] [address]. 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
--- OUTSIDE RECORDS SUMMARY | 2024-03-04 08:19 | XMS_ITS | Encounter Summary ---
Author Organization [facility] Address [address] [place], [place] [address]. [place] [address] Care Team Providers Care Concrete Mixing Plant Laborer Name Role Phone Steph Venegas MD Primary Care Provid er Mari Chau PA-C Primary Care Pr ovider Mari Chau PA-C Unavailable Mari Chau PA-C Unavailable Encounter Details Date Type Department Care Team (Late st Contact Info) Description 11/04/2009 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 Gender Identity Female 09/12/2020 11:48 AM CDT Sexual Orientation Straight 09/12/2020 11 :48 AM CDT documented as of this encounter Plan of Treatment Not on file documented as of this encounter Visit Diagnoses Diagnosis OB DELIVERY RECORD- Primary documented in this encounter Care Teams Concrete Mixing Plant Laborer Relationship Specialty Start Date End Date Steph Venegas MD [address] [place] [address] PCP - General 03/27/04 10/30/10 Mari Chau PA-C [address] [place] [address] PCP - General Family Practice 10/31/10 Mari Chau PA-C [address] [place] [address] PCP - Assigned PCP 11/05/10 07/08/18 Mari Chau PA-C [address] [place] [address] Assigned PCP 02/07/12 02/14/19 documented as of this encounter
--- OUTSIDE RECORDS SUMMARY | 2024-03-04 08:19 | XMS_ITS | Encounter Summary ---
Author Organization [facility] Address [address] [place] [address]. 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
== END 2024-03-03 08:55 | disposition home or self-care (01) ==
LOC: NFLDREF 03-04 08:17
PROVIDERS: PCP Emergency Medicine; Referring Provider Emergency Medicine; Visit Provider Emergency Medicine
DX: E61.1 Iron deficiency (principal)
CPT/HCPCS: 82728

== ENCOUNTER 2024-04-27 13:07 | Outpatient (CLI) | payer BC, SELFPAY ==
--- OUTSIDE RECORDS SUMMARY | 2024-04-24 13:55 | XMS_ITS | Data Portability ---
Author Organization [place] [facility] Address [address] [place] [address] Care Team Providers Care Fly Worker Name Role Phone YADIRA MARTINEZ Primary Care Provider CHAIM JAMES Referring Provider [phone] Assessment Encounter Date Assessment Date Assessment LastModified [...] Prevention Program and work with a health motor coach driver to help her integrate self management and [...] to1 Arlene Watson PT, [address] [facility], [address], [place], [address], 4 21:49:32 Procedures None recorded. Surgeries None recorded. Imaging None recorded. Medication Orders None recorded. 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 Not available 09/10/2023 21:48:19 09/19/2023 [id number] Total treatment time minutes today = 45 [...] stabil izatio n applia nce Not Available [place] [address], [place], [address], 09/09/2023 09:20:56 Result Notes None recorded. Problems Name Problem SNOMED Code Status Onset Date Resolution Date Notes Provider Name and Address Organization Details Recorded Time Bilateral temporoma ndibular joint arthritis 511932931752 05465 Active 2023 Bilateral TMJ arthralgi a BAKARI Carty DDS,MS [address], [place], [address], [facility] 13:54:17 Myofascia l pain 867569557 Active 2023 masticato ry and cervical BAKARI Carty DDS,MS [address], [place], [address], [facility] 4 13:54:24 Sleep related bruxism 943903487 Active 2023 BAKARI NASCIMENT O, DDS,MS [address], [place], [address], [facility] 4 13:38:36 Chronic pain 71906384 Active 2023 BAKARI NASCIMENT O, DDS,MS [address], [place], [address], [facility] 4 13:38:43 Bilateral referred otalgia of ears 646902990228 9106 Active 2023 BAKARI NASCIMENT O, DDS,MS [address], [place], [address], [facility] 4 13:53:40 Periodont al ligament strain 201581975 Active 2023 BAKARI NASCIMENT O DDS,MS [address], [place], [address], [facility] 4 13:54:39 Episodic tension-t ype headache 281184825 Active 2023 BAKARI NASCIMENT O DDS,MS [address], [place], [address], [facility] 4 13:58:30 Tinnitus 75955027 Active 2023 Arlene Watson DPT [address], [place], [address], [facility] 4 12:20:39 Problem Notes None recorded. Procedures Surgical History Date Name Laterality Status Provider Name and Address Organization Details Recorded Time 09/19/19 24 75065 - PT Eval High Complexity completed Arlene Watson DPT [address], [place], [address], [place] [facility] 09/19/2023 12:19:52 09/19/19 24 72831: Self Care/Home Management Training completed Arlene Watson DPT [address], [place], [address], [facility] 09/19/2023 20:14:50 09/19/19 24 76787: Therapeutic Exercise completed Arlene Watson DPT [address] [facility] [address], [place], [address], [facility] 09/19/2023 20:13:51 09/19/19 24 67132: Manual Therapy completed Arlene Watson DPT [address] [facility] [address], [place], [address], [facility] 09/19/2023 20:13:58 04/12/20 22 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 None Information not available 09/10/2023 What Is Your Level Of Caffeine Consumption? Occasional [email or web address] Information not available 09/10/2023 Are You Currently Employed? Yes [email or web address] Information not available 09/10/2023 What Type Of Diet Are You Following? [employer] , Under 2000 Calories A Day Melissa Fernandez [email or web address] Information not available 09/10/2023 Do You Reside In Or Have You Traveled To An Area Where Ebola Virus Transmission Is Active? No [email or web address] Information not available 09/10/2023 What Is The Highest Grade Or Level Of School You Have Completed Or The Highest Degree You Have Received? 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 (0=no Pain, 10=pain As Bad As You Can Imagine) 9 [email or web address] Information not available 09/10/2023 What Number Best Describes How, During The Past Week, Pain Has Interfered With Your Enjoyment Of Life? (0=does Not Interfere, 10= Completely Interferes) 5 [email or web address] Information not available 09/10/2023 What Number Best Describes How, During The Past Week, Pain Has Interfered With Your General Activity? (0=does Not Interfere, 10=completely Interferes) 9 [email or web address] Information not available 09/10/2023 How Did Primary Problem Begin? 20+ Years Ago, I Was Getting The Worst Headaches/zeyad niranjan. Than My Dentist Saw Grinding Patterns On My Teeth. I Have Been Wearing A Mouthguard At Night Since [email or web address] Information not available 09/10/2023 How Many Children Do You Have? 2 [email or web address] Information not available 09/10/2023 What Is Your Relationship Status? [email or web address] Information not available 09/10/2023 Do You Feel Stressed (tense, Restless, Nervous, Or Anxious, Or Unable To Sleep At Night)? [id number] Information not available 09/10/2023 Do You Use Any Illicit Or Recreational Drugs? No Information not available 09/10/2023 Sex: Unknown Functional Status Question Answer Note LastModified by Organization D etails LastModified Time What is your exercise level? Moderate [email or web address] Information not available 09/10/2023 Mental Status None recorded. Family History Relationship Description Onset Age of this Age Resolved Age Notes LastModified by Organization Details LastModified Time Father Sleep apnea [email or web address] Not avail able 09/10/2023 11:01:30 Father Saud yang [email or web address] Not available 2023 11:01:53 Son Sleep apnea [email or web address] Not avail able 09/10/2023 11:01:30 Mother Saud yang [email or web address] Not available 2023 11:01:53 Maternal Grandfather Family history of malignant neoplasm [email or web address] Not available 2023 11:02:42 Paternal Grandmother Family history of malignant neoplasm [email or web address] Not available 2023 11:02:42 Medical History Condition Response Thyroid Problems Y Muscle, Joint, or Bone Problems Y Acid Reflux (GERD) Y Gynecological HistoryNo gynecological history recorded. Obstetrics History GPAL:G 0 P 0 0 0 0 Past Encounters Encounter ID Performer Location Encounter Start Date Encounter Closed Date Diagnosis/Indication Diagnosis SNOMED-CT Code Diagnosis ICD10 Code [id number] BAKARI MANJARREZ DDS,MS Abril littlejohn [address] [place] [id number] 09/10/2023 10:43:07 09/10/2023 12:20:54 Myofascial pain 655363667 M79.11 M79.12 Bilateral temporomandibular joint arthritis 3898562692 6982265 M26.643 Sleep related bruxism 27 2352938 G47.63 Chronic pain 15414196 G8 9.29 Bilateral referred otalgia of ears 5680087871 869711 H92.03 Periodonta l ligament strain 751297737 K05.5 Episodic t ension-type headache 806537326 G44.219 [id number] ERMIAS Flynn [address] [place] [id number] 09/19/2023 18:54:57 09/19/2023 20:16:24 Bilateral referred otalgia of ears 5413513134 117306 H92.03 Bilateral temporomandibular joint arthritis 4559473759 2354275 M26.643 Chronic pain 36135280 G8 9.29 Episodic t ension-type headache 494951062 G44.219 Myofascial pain 82455018 9 M79.11 M79.12 Periodonta l ligament strain 445614403 K05.5 Sleep related bruxism 27 7907941 G47.63 Tinnitus 68270573 H93.13 Health Concerns Section Related Observation LastModified by Organization Detai ls LastModified Time None Recorded Concern Status LastModified by Organization Details LastModified Time None Recorded Advance Directives Directive None Recorded Payers Encounter Date Sequence Insurance Name Policy Number Policy Miranda Covered Member ID Miranda Member ID Guarantor Name 09/10/2023 1 [place] [id number] 1 Bella N Aarre [id number] Bella N Aarre 09/19/2023 1 [place] [id number] 1 Bella N Aarre [id number] Bella N Aarre Notes Date Note Type Note Provider Name and Address Organization Details Recorded Time 09/10/2023 text/html general HPI for jaw, face, TMD painReported bypatient.Onset:starte d 20 year(s) ago; gradual Location:bilateral; masseteric; temporal; ear Quality:aching; sore Severity:pain level 6/10; radiating to the ear (temples, neck) Durationconstant Symptom triggers:clenching; bruxism; stress; anxiety Aggravating Factors:stress; anxiety; grinding teeth; clenching the teeth; chewing Alleviating Factors:massage; heat; ice; splint therapy; physical therapy Associated Symptoms:tooth pain;headaches;tinnitu s;weakness Prior Tests:CT maxillofacial Prior Treatment:camp guard/oral appliance/splint; physical therapy Prior opinionprimary care provider; ENT Patient presents today for evaluation of a possible temporomandibular disorder. These symptoms are {{acute chronic*}} and began with {{ no clear triggering events* significant stress and tension}}. Previous consultation include {{ none evaluation with his/her primary care provider* evaluation with his/her dentist evaluation with both his/her dentist and primary care provider}}. Symptoms are {{right sided only left sided only bilateral*}} and aggravated by {{ no clear triggers jaw use and function clenching and grinding of their teeth* stress and tension}}. The patient is {{aware* not aware}} of teeth clenching and grinding. Bella is [...] list for another PSG at [facility]. She feels generalized muscle tightness down her neck, shoulders and arms to the point she has no strength to greens picker things - like a gallon of [...] history of trauma. BAKARI MANJARREZ DDS,MS [address], [place], [address], [facility] 09/10/2023 21:49:35 09/19/2023 text/html Patient presents today for PT evaluation regarding: tooth pain, tinnitus, headaches and weakness. Significant full body fatigue that is worse in her arms and face is her primary concern that affects her QOL.Symptoms present for: 20+ years of TMD, 2 years onset of increased tension and body-wide fatigue.For duration, patient reports constant. For symptom triggers, patient reports clenching, bruxism, stress, and anxiety. For aggravating factors, patient reports stress, anxiety, grinding teeth, clenching the teeth, and chewing. For alleviating factors, patient reports massage, heat, ice, splint therapy, and physical therapy.Current symptoms are reported at 01/13. Pt was previously able to complete ADLs and IADLs I without limitation or pain.Functional limitations and participation restrictions currently include:*yawning*speak ing*laughing*oral hygiene*eating*weaknes s of UEs - difficulty picking up a gallon of milk*poor sleep*cold feet/hands Personal factors and/or comorbidities affecting the plan of care include:*Headaches: tension and migraines reported by pt - relieved with [facility] splint use.*Clenching*Bruxism *Stress*Medications:*S timulant use: caffeine, former smoker*Medical/Surgica l Hx: gynecological surgery 2021, GERD, thyroid dysfunction. Goiter. Lateral epicondylitis, back pain. Covid - ? long covid. Denies: numbness, tingling, vision changes, swallowing difficulty. Previous Treatment: chiropractic, PT, dry needling. Pending sleep consult at [place], pt reports 2 previous studies were negative. Oral splint effective for reducing migraines per pt. Doing scream face, TUTA. Patient Goals include: treat TMD to possibly help with fatigue/tension. Patient Reported Outcome JFLS-8 (out of 80): 09/18=12 Arlene Watson DPT [address], [place], [address], [facility] 09/19/2023 20:19:54 OBGyn Episode No OBEpisode recorded.
--- NOTE | 2024-04-27 13:20 | CRLHL7_ITS ---
For Patients: As a result of the Century Cures Act, medical imaging exams and procedure reports are released immediately into your electronic medical record. You may view this report before your referring provider. If you have questions, please contact your health care provider. BILATERAL SCREENING MAMMOGRAM WITH COMPUTER-AIDED DETECTION AND TOMOSYNTHESIS TECHNIQUE: CC and MLO views were obtained. These mammographic images have been obtained using full-field digital technique. These mammographic images were interpreted with the benefit of computer-aided detection. Breast Tomosynthesis was used in this interpretation. COMPARISON FILM: 03/21/23, 01/31/22, 01/30/21. FINDINGS: The breasts are heterogeneously dense, which may obscure small masses IMPRESSION: There is no radiographic evidence for malignancy. ASSESSMENT: BI-RADS Category 1: Negative RECOMMENDATION: Routine screening mammogram in 1 year. A lay language report of this examination will be provided to the patient. Gabriel Pires M.D. Diagnostic Radiologist [email or web address] GARCIA/catarina / bM/Dictated by: Gabriel Pires MD @ 04/30/2024 8:18:00 AM (Electronically Signed)
== END 2024-04-27 13:08 | disposition home or self-care (01) ==
LOC: MAMMO 13:08
PROVIDERS: PCP Emergency Medicine; Visit Provider Registered Nurse
DX: Z12.31 Encounter for screening mammogram for malignant neoplasm of breast (principal); R92.2 Inconclusive mammogram
CPT/HCPCS: 77063; 77067

== ENCOUNTER 2024-07-27 08:53 | Outpatient (CLI) | payer BC, SELFPAY ==
--- NOTE | 2024-07-27 09:15 | CRLHL7_ITS ---
For Patients: As a result of the Cures Act, medical imaging exams and procedure reports are released immediately into your electronic medical record. You may view this report before your referring provider. If you have questions, please contact your health care provider. INDICATION: Thyroid nodules. TECHNIQUE: Ultrasound thyroid with vanessa-scale and color Doppler analysis. COMPARISON: 03/21/2023. FINDINGS: Right lobe: 5.8 x 2.1 x 2.3 cm. Lesion 1: Midpole complex, 2.5 cm, TR 3, unchanged. Lesion 2: Lower pole complex, 2 cm, TR 3, slightly increased in size. Lesion 3: Upper pole complex, 1.4 cm, TR 3, unchanged. Left lobe: 6.8 x 2.2 x 2.5 cm. Lesion 1: Midpole complex, 2.3 cm, TR 3, unchanged. Lesion 2: Lower pole complex, 1 cm, TR 3, unchanged. Lesion 3: Upper pole complex, 1.5 cm, TR 3, unchanged. Isthmus: Unremarkable. Echotexture of the thyroid parenchyma is normal. Color Doppler analysis demonstrates normal vascularity. No evidence of lymphadenopathy or parathyroid mass. IMPRESSION: Redemonstration of multiple bilateral complex nodules, all with a TI-RADS category of TR 3. One of the nodules may have slightly increased in size, remainder are stable. - ACR TI-RADS [email or web address] TR1: Benign No FNA TR2: Not Suspicious No FNA TR3: Mildly Suspicious FNA if greater than or equal to 2.5 cm Follow if greater than or equal to 1.5 cm TR4: Moderately Suspicious FNA if greater than or equal to 1.5 cm Follow if greater than or equal to 1 cm TR5: Highly Suspicious FNA if greater than or equal to 1 cm Follow if greater than or equal to 0.5 cm Dictated by Sarath Jackson MD @ 07/28/2024 9:38:26 AM (Electronically Signed)
== END 2024-07-27 08:54 | disposition home or self-care (01) ==
LOC: US 08:54
PROVIDERS: PCP Emergency Medicine; Visit Provider Surgery
DX: E04.1 Nontoxic single thyroid nodule (principal)
CPT/HCPCS: 76536

== ENCOUNTER 2024-09-07 11:05 | Outpatient (CLI) | payer BC, SELFPAY | END 2024-09-07 11:06 | disposition home or self-care (01) | LOC: LKVREF 23:19 | PROVIDERS: PCP Emergency Medicine; Referring Provider Emergency Medicine; Visit Provider Emergency Medicine | DX: R79.89 Other specified abnormal findings of blood chemistry (principal); E61.1 Iron deficiency | CPT/HCPCS: 82728; 83540; 83550 ==

== ENCOUNTER 2025-03-12 09:07 | Outpatient (CLI) | payer BC, SELFPAY | END 2025-03-12 09:08 | disposition home or self-care (01) | PROVIDERS: Visit Provider Registered Nurse | DX: Z01.419 Encounter for gynecological examination (general) (routine) without abnormal findings (principal); R79.89 Other specified abnormal findings of blood chemistry; R53.82 Chronic fatigue, unspecified; E61.1 Iron deficiency | CPT/HCPCS: 82728; 84443; J0690; J1100; J2590 ==

== ENCOUNTER 2025-04-13 08:28 | Outpatient (CLI) | payer BC, SELFPAY | END 2025-04-13 08:29 | disposition home or self-care (01) | LOC: NFLDREF 04-19 17:45 | PROVIDERS: Visit Provider Registered Nurse | DX: R79.89 Other specified abnormal findings of blood chemistry (principal) | CPT/HCPCS: 80076; 82728; 83540; 83550 ==